=== PATIENT | female | born 1960 | race African-American/Black ===

== ENCOUNTER → 2017-03-29 | Outpatient (CLI) | payer BC ==
[~2017-03-29] MED LIST: ADVIN25050 INH; ALBUAER2 INH; ASTNS NAE; BYS10 PO; HLD5 PO; SNG10 PO; TIOTCAP INH
--- NOTE | 2017-03-29 13:29 | MAMMOGRAPHY REPORT ---
BILATERAL DIGITAL DIAGNOSTIC MAMMOGRAM TOMOSYNTHESIS WITH CAD AND TARGETED BILATERAL ULTRASOUND: 2017 CLINICAL HISTORY: 56-year-old woman presents after she felt lumps in each breast, only one week ago. She was unable to palpate or point out the exact areas of the lumps today. No skin erythema or nipp le discharge. TECHNIQUE: Breast tomosynthesis in addition to standard 2D mammography was performed. Current study was also evaluated with a Computer Aided Detection (CAD) system. COMPARISON: Comparison is made to exams dated: 10/14/2011 ultrasound, 10/14/2011 mammogram, 04/21/2005 m ammogram, and 10/09/2004 mammogram - [facility]. BREAST COMPOSITION: The tissue of both breasts is almost entirely fatty. FINDINGS: A triangle palpable markers were placed on each breast in the approximate 9:00 middle one t hird of the right breast and approximate 8:00 middle one third of the left breast. There are stable subcentimeter circumscribed masses in the left upper outer quadrant, most compatible with benign intr amammary lymph nodes. A few benign-appearing calcifications in the anterior right breast. No new jeffery spicious mass, architectural distortion or cluster of microcalcifications is seen. Targeted ultrasound was performed in both breasts in the general areas of lumps described by the alexander ent, although she was unable to pinpoint a discrete lump in either breast at this appointment. In th e 8:00 left breast approximately 8 cm from the nipple, sonographically normal tissue is identified. In the approximate 9:00 right breast, 6 cm from the nipple, sonographically normal tissue is identifi ed. No suspicious solid mass identified in either breast on targeted ultrasound. IMPRESSION: ACR BI-RADS CATEGORY 2: BENIGN, TARGETED ULTRASOUND ACR BI-RADS CATEGORY 2: BENIGN Stable bilateral mammograms. There is no mammographic or targeted sonographic evidence of malignancy in the breasts. Continued clinical follow-up is recommended for the reported bilateral lumps, as bi opsy of a clinically suspicious mass should not be precluded by negative imaging. Otherwise recommen d bilateral screening mammography in one year. These results and recommendations were discussed with the patient at the time of the exam. Approximately 10% of breast cancers are not detected with mammography. A negative mammographic report should not delay biopsy if a clinically suggestive mass is present. Shirin Cummins M.D. ay/:03/29/2017 10:19:48 Bridge Operator: Humaira WITT)(M), [facility] letter sent: Normal /2 BI-RADS Code: ACR BI-RADS Category 2: Benign Ultrasound BI-RADS: ACR BI-RADS Category 2: Benign
== END | disposition home or self-care (01) ==
LOC: C.MAMM 08:35
PROVIDERS: ATTEND Family Medicine
DX: N63.10 Unspecified lump in the right breast, unspecified quadrant (principal); N63.20 Unspecified lump in the left breast, unspecified quadrant

== ENCOUNTER 2022-02-08 20:08 | Inpatient (IN) ==
[2022-02-08 21:52] LABS: Acetaminophen < 3 ug/ml (10-30); Alanine Aminotransferase 20 U/L (7-52); Albumin Globulin Ratio 1.1 (0.9-2); Albumin Level 3.9 gm/dl (3.4-5.0); Alkaline Phosphatase 125 U/L (34-104); Anion Gap 20 (3-11); Aspartate Aminotransferase 23 U/L (13-39); BUN Creatinine Ratio 14.5 (10-20); Bilirubin,Total 0.9 mg/dl (0.2-1.0); Blood Urea Nitrogen 23 mg/dl (6-23); Calcium 8.9 mg/dl (8.5-10.1); Carbon Dioxide 29 mmol/L (21-32); Chloride 94 mmol/L (98-107); Est GFR (African American) 39.6 ml/min; Est GFR (Non-African American) 34.2 ml/min; Globulin 3.4 gm/dl (2.5-4.0); Glucose 87 mg/dl (70-99(Fasting)); Potassium 2.6 mmol/L (3.5-5.1); Salicylate < 3.0 mg/dl (3.0-30); Sodium 143 mmol/L (136-145); Total Protein 7.3 gm/dl (6.0-8.3)
[2022-02-08 21:55] LABS: Basophils # (auto) 0.06 K/uL (0-0.2); Basophils % (auto) 0.7 %; Eosinophils # (auto) 0.04 K/uL (0-0.50); Eosinophils % (auto) 0.5 %; Hematocrit (blood only) 42.9 % (34.1-44.9); Hemoglobin 14.2 g/dl (12.0-16.0); Immature Granulocytes # (auto) 0.02 K/uL (0.00-0.02); Immature Granulocytes % (auto) 0.2 %; Lymphocytes # (auto) 1.57 K/uL (1.2-3.4); Lymphocytes % (auto) 18.6 %; Mean Corpuscular Hemoglobin 25.5 pg (25.0-34.0); Mean Corpuscular Hgb Conc 33.1 g/dL (32.0-36.0); Mean Corpuscular Volume 77.2 fL (80.0-100.0); Mean Platelet Volume 11.5 fL (9.4-12.3); Monocytes # (auto) 0.83 K/uL (0.24-0.82); Monocytes % (auto) 9.8 %; Neutrophils # (auto) 5.91 K/uL (1.4-6.5); Neutrophils % (auto) 70.2 %; Platelet Count 170 K/uL (130-400); RDW Coefficient of Variation 14.8 % (11.5-14.5); RDW Standard Deviation 40.7 fL (36.4-46.3); Red Blood Count 5.56 M/uL (3.93-5.22); White Blood Count 8.43 K/ul (4.8-10.8)
[2022-02-08] MEDS ORDERED: POTASSIUM CHLORIDE CRTAB 20 MEQ TABCR PO STA (22:10)
[2022-02-08] MEDS ORDERED: SODIUM CHLORIDE 0.9% 1000ML 1,000 ML IV ONE (22:10)
--- NOTE | 2022-02-08 22:14 | Emergency Department Note ---
Impression & Plan Schizophrenia, ABHISHEK (acute kidney injury), Hypokalemia, Noncompliance with medications ED Provider Note NAME: KYREE CASEY AGE: 61 SEX: F ARRIVES VIA: Ambulance INFORMANT: Patient ED PROVIDER(S): Rashaun John MD CHIEF COMPLAINT: 302 warrant, inability for self-care. PLAN: Disposition: Admit MEDICAL DECISION MAKING: The patient is a 61-year-old woman with a past medical history of schizophrenia who presents to the emergency department with a 302 warrant by police after concern was raised by friends that the patient was on acting normally and was not responding to her attempts to contact her. The patient's home was entered today by police after a broken window was noticed in her home. Her home was noticed to be in disarray and included her toilet which have been nonfunctioning for 2 weeks filled with stool. The patient reported that she is not eating anything for the past 9 days. She reports that "nothing is wrong with her". T hought processes difficult to follow and is incoherent at times. She denies being on any medications at all. She denies hearing any voices or seeing things. She denies any recent fevers, chills, cough or congestion. On arrival the patient is no acute distress, afebrile with heart in the 100s and blood pressure 150s/100s and vital signs otherwise stable. She appears clinically dry. She does exhibit pressured speech and mild flight of ideas. Thoughts are disorganized. WBC, H/H and platelets within normal limits. Chemistry with potassium of 2.6 with repletion initiated. Creatinine 1.5 consistent with patient's clinically dry appearance without recent values for comparison. LFTs unremarkable. TSH within normal limits. COVID-19 RNA, NAM test was negative. Given the patient's metabolic abnormalities including low potassium and acute renal insufficiency she will require medical admission for medical optimization prior to clearance for psychiatric placement. Case was discussed [place] Gomez, [facility] [place], who will evaluate the patient for admission. Urine pending. Triage Nursing notes reviewed and agree them. Prior medical records reviewed Vital Signs: reviewed Differential diagnosis: Mood disorder, infection, hypoglycemia, electrolyte abnormalities, cardiac sources, intracerebral event, toxicologic, trauma, neurologic, as well as other pathologies. ER treatment provided: See below. Laboratory studies: See below Imaging studies: See below Consultation(s): Dr. Gomez [facility] [place]. HPI: The patient is a 61-year-old woman with a past medical history of schizophrenia who presents to the emergency department with a 302 warrant by police after concern was raised by friends that the patient was on acting normally and was not responding to her attempts to contact her. The patient's home was entered today by police after a broken window was noticed in her home. Her home was noticed to be in disarray and included her toilet which have been nonfunctioning for 2 weeks filled with stool. The patient reported that she is not eating anything for the past 9 days. She reports that "nothing is wrong with her". Thought processes difficult to follow and is incoherent at times. She denies being on any medications at all. She denies hearing any voices or seeing things. She denies any recent fevers, chills, cough or congestion. ROS: See above HPI for pertinent positives & negatives. A total of 10 systems reviewed and were otherwise negative. VITALS:See Below PHYSICAL EXAMINATION: GENERAL: Awake, alert, in no distress HENT: Normocephalic, atraumatic. Oropharynx unremarkable. EYES: Normal conjunctiva. Sclera non-icteric. NECK: Supple. No nuchal rigidity. FROM. No JVD. RESPIRATORY: Clear to auscultation. CARDIAC: Regular rate, normal rhythm. Extremities warm and well perfused. Pulses equal. ABDOMEN: Soft, non-distended. No tenderness to palpation. No rebound or guarding. No masses. RECTAL: Deferred. MUSCULOSKELETAL: Chest examination reveals no tenderness. The back is symmetrical on inspection without obvious abnormality. There is no CVA tenderness to palpation. No joint edema. LOWER EXTREMITIES: Calves are equal size bilaterally and non-tender. No edema. No discoloration. NEURO: Normal sensorium. No sensory or motor deficits noted. SKIN: No rash or jaundice noted. PSYCH: Labile affect. Disorganized thoughts, pressured speech, flight of ideas. Poor insight. 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 Beliefs That Will Affect Care: None Current Living Situation: Alone Other Information That Helps Us Care for You: No Feels Safe at Home: Yes Safety Concerns: Feels Safe At This Time Assistive Devices: None Allergies Allergies Allergy/AdvReac Type Severity Reaction Status Date / Time latex Allergy Unknown Unknown Verified 02/08/22 22:43 Penicillins Allergy Unknown PT CAN NOT Verified 02/08/22 22:43 REMEMBER (TOLERATES CEFAZOLIN) oxycodone AdvReac Intermediate NAUSEA Verified 02/08/22 22:43 Home Meds Home Medications Medication Instructions Recorded Confirmed No Known Home Medications 02/08/22 02/08/22 Results & Data (ED) Vital Signs Vital Signs - 24 hr 02/08/22 20:28 02/08/22 22:07 Temperature 37.4 C Temperature Source Oral Pulse Rate 104 H Pulse Rate [Finger] 102 H Pulse Rhythm Regular Pulse Rhythm [Finger] Regular Pulse Strength Normal Pulse Strength [Finger] Normal Respiratory Rate 20 20 Respiratory Effort / Characteristics Non-Labored Spontaneous Non-Labored Spontaneous Respiratory Depth Normal Normal Respiratory Pattern Regular Blood Pressure 178/101 H Blood Pressure [Right Arm] 155/100 H Blood Pressure Mean 126 Blood Pressure Mean [Right Arm] 118 Blood Pressure Position [Right Arm] Sitting Pulse Oximetry 98 97 Oxygen Delivery Method Room Air Room Air Sepsis Recent Fever Within 48 Hours No Sepsis New/Unexplained Change in Mental Status N/A Sepsis Action Taken by Nursing No Action Required Laboratory Data Attestation: I reviewed the patient's lab results. Result diagrams: 02/08/22 21:15 02/08/22 21:15 Lab Results 02/08/22 02/08/22 02/08/22 Range/Units 20:55 21:15 21:15 WBC 8.43 (4.8-10.8) K/ul RBC 5.56 H (3.93-5.22) M/uL Hgb 14.2 (12.0-16.0) g/dl Hct 42.9 (34.1-44.9) % MCV 77.2 L (80.0-100.0) fL MCH 25.5 (25.0-34.0) pg MCHC 33.1 (32.0-36.0) g/dL RDW Std Deviation 40.7 (36.4-46.3) fL RDW Coeff of Cory 14.8 H (11.5-14.5) % Plt Count 170 (130-400) K/uL MPV 11.5 (9.4-12.3) fL Immature Gran % (Auto) 0.2 % Neut % (Auto) 70.2 % Lymph % (Auto) 18.6 % Benton % (Auto) 9.8 % Eos % (Auto) 0.5 % Baso % (Auto) 0.7 % Neut # (Auto) 5.91 (1.4-6.5) K/uL Lymph # (Auto) 1.57 (1.2-3.4) K/uL Benton # (Auto) 0.83 H (0.24-0.82) K/uL Eos # (Auto) 0.04 (0-0.50) K/uL Baso # (Auto) 0.06 (0-0.2) K/uL Immature Gran # (Auto) 0.02 (0.00-0.02) K/uL Sodium 143 (136-145) mmol/L Potassium 2.6 L (3.5-5.1) mmol/L Chloride 94 L (98-107) mmol/L Carbon Dioxide 29 (21-32) mmol/L Anion Gap 20 H (3-11) BUN 23 (6-23) mg/dl Creatinine 1.59 H (0.6-1.2) mg/dl Est Cr Clr Drug Dosing Not Reportable Est GFR ( Amer) 39.6 ml/min Est GFR (Non-Af Amer) 34.2 ml/min BUN/Creatinine Ratio 14.5 (10-20) Glucose 87 (70-99(Fasting)) mg/dl Calcium 8.9 (8.5-10.1) mg/dl Phosphorus (2.5-4.9) mg/dl Magnesium (1.7-2.4) mg/dl Total Bilirubin 0.9 (0.2-1.0) mg/dl AST 23 (13-39) U/L ALT 20 (7-52) U/L Alkaline Phosphatase 125 H (34-104) U/L Total Protein 7.3 (6.0-8.3) gm/dl Albumin 3.9 (3.4-5.0) gm/dl Globulin 3.4 (2.5-4.0) gm/dl Albumin/Globulin Ratio 1.1 (0.9-2) TSH (0.300-4.500) uIu/ml Salicylates (3.0-30) mg/dl Acetaminophen (10-30) ug/ml Ethyl Alcohol mg/dL (<10.0) mg/dl SARS-CoV-2, RNA, NAAT NEGATIVE (NEGATIVE) 02/08/22 02/08/22 02/08/22 Range/Units 21:15 21:15 21:15 WBC (4.8-10.8) K/ul RBC (3.93-5.22) M/uL Hgb (12.0-16.0) g/dl Hct (34.1-44.9) % MCV (80.0-100.0) fL MCH (25.0-34.0) pg MCHC (32.0-36.0) g/dL RDW Std Deviation (36.4-46.3) fL RDW Coeff of Cory (11.5-14.5) % Plt Count (130-400) K/uL MPV (9.4-12.3) fL Immature Gran % (Auto) % Neut % (Auto) % Lymph % (Auto) % Benton % (Auto) % Eos % (Auto) % Baso % (Auto) % Neut # (Auto) (1.4-6.5) K/uL Lymph # (Auto) (1.2-3.4) K/uL Benton # (Auto) (0.24-0.82) K/uL Eos # (Auto) (0-0.50) K/uL Baso # (Auto) (0-0.2) K/uL Immature Gran # (Auto) (0.00-0.02) K/uL Sodium (136-145) mmol/L Potassium (3.5-5.1) mmol/L Chloride (98-107) mmol/L Carbon Dioxide (21-32) mmol/L Anion Gap (3-11) BUN (6-23) mg/dl Creatinine (0.6-1.2) mg/dl Est Cr Clr Drug Dosing Est GFR ( Amer) ml/min Est GFR (Non-Af Amer) ml/min BUN/Creatinine Ratio (10-20) Glucose (70-99(Fasting)) mg/dl Calcium (8.5-10.1) mg/dl Phosphorus (2.5-4.9) mg/dl Magnesium (1.7-2.4) mg/dl Total Bilirubin (0.2-1.0) mg/dl AST (13-39) U/L ALT (7-52) U/L Alkaline Phosphatase (34-104) U/L Total Protein (6.0-8.3) gm/dl Albumin (3.4-5.0) gm/dl Globulin (2.5-4.0) gm/dl Albumin/Globulin Ratio (0.9-2) TSH 0.419 (0.300-4.500) uIu/ml Salicylates < 3.0 L (3.0-30) mg/dl Acetaminophen < 3 L (10-30) ug/ml Ethyl Alcohol mg/dL < 10.0 (<10.0) mg/dl SARS-CoV-2, RNA, NAAT (NEGATIVE) 02/08/22 Range/Units 21:15 WBC (4.8-10.8) K/ul RBC (3.93-5.22) M/uL Hgb (12.0-16.0) g/dl Hct (34.1-44.9) % MCV (80.0-100.0) fL MCH (25.0-34.0) pg MCHC (32.0-36.0) g/dL RDW Std Deviation (36.4-46.3) fL RDW Coeff of Cory (11.5-14.5) % Plt Count (130-400) K/uL MPV (9.4-12.3) fL Immature Gran % (Auto) % Neut % (Auto) % Lymph % (Auto) % Benton % (Auto) % Eos % (Auto) % Baso % (Auto) % Neut # (Auto) (1.4-6.5) K/uL Lymph # (Auto) (1.2-3.4) K/uL Benton # (Auto) (0.24-0.82) K/uL Eos # (Auto) (0-0.50) K/uL Baso # (Auto) (0-0.2) K/uL Immature Gran # (Auto) (0.00-0.02) K/uL Sodium (136-145) mmol/L Potassium (3.5-5.1) mmol/L Chloride (98-107) mmol/L Carbon Dioxide (21-32) mmol/L Anion Gap (3-11) BUN (6-23) mg/dl Creatinine (0.6-1.2) mg/dl Est Cr Clr Drug Dosing Est GFR ( Amer) ml/min Est GFR (Non-Af Amer) ml/min BUN/Creatinine Ratio (10-20) Glucose (70-99(Fasting)) mg/dl Calcium (8.5-10.1) mg/dl Phosphorus 2.8 (2.5-4.9) mg/dl Magnesium 2.0 (1.7-2.4) mg/dl Total Bilirubin (0.2-1.0) mg/dl AST (13-39) U/L ALT (7-52) U/L Alkaline Phosphatase (34-104) U/L Total Protein (6.0-8.3) gm/dl Albumin (3.4-5.0) gm/dl Globulin (2.5-4.0) gm/dl Albumin/Globulin Ratio (0.9-2) TSH (0.300-4.500) uIu/ml Salicylates (3.0-30) mg/dl Acetaminophen (10-30) ug/ml Ethyl Alcohol mg/dL (<10.0) mg/dl SARS-CoV-2, RNA, NAAT (NEGATIVE) Administered Medications Discontinued Medications Sodium Chloride (Nss 1000ml) 1,000 mls @ 999 mls/hr IV .Q1H1M ONE Stop: 02/08/22 23:10 Last Infusion: 02/08/22 23:57 Dose: 0 mls/hr Documented By: Admin: 02/08/22 22:41 Dose: 999 mls/hr Documented By: JOE Potassium Chloride (K David / Wtr) 10 meq in 100 mls @ 100 mls/hr IV Q1H PAM; Protocol Stop: 02/09/22 00:14 Last Infusion: 02/09/22 01:18 Dose: 0 mls/hr Documented By: Admin: 02/08/22 23:56 Dose: 100 mls/hr Documented By: Infusion: 02/08/22 23:41 Dose: 100 mls/hr Documented By: Admin: 02/08/22 22:41 Dose: 100 mls/hr Documented By: JOE Potassium Chloride (Potassium Chloride Crtab 20 Meq Tabcr) 20 meq PO NOW STA Stop: 02/08/22 22:11 Last Admin: 02/08/22 22:40 Dose: 20 meq Documented By: JOE Discharge Plan Visit Data Chief Complaint: Altered Mental Status Stated Complaint: mental health ED Provider: Rashaun John Discharge Problem: Schizophrenia, ABHISHEK (acute kidney injury), Hypokalemia, Noncompliance with medications Patient Disposition: Admitted As Inpatient Discharge Instructions Interventions: ED Discharge Assessment Last Done: 02/09/22 00:53
--- NOTE | 2022-02-08 22:25 | History & Physical Report ---
Date of Service February 08, 2022 Assessment & Plan (1) Hypokalemia: Plan: Sun is a 61-year-old female with a past medical history of schizoaffective disorder last hospitalization in the setting of medication noncompliance several years ago who was brought in by police on a 302 with c additional concerns from office of aging for unsafe home environment and he was found to have had no meals in over a week, and with concern for reported disorganized thought proce ss. Hypokalemia Potassium 2.6 on admission Magnesium pending Suspect in the setting of poor p.o. intake, patient endorses not eating in at least 9 days Per report house was disorganized with foul smell, furniture had been moved and patient with disorganized reports of how it got 40 M EQ x1, followed by 20 M EQ p.o. 3 times daily x3 doses Trend BMP and magnesium daily (2) Schizoaffective disorder: Plan: With history of medication noncompliance Patient denies history of this, reports she has not taken any medications in over a year Thought process during exam is tangential, when asked about AH/VH/SI/HI pt reports " I am not getting into that with you, you should call Dr. Tejinder Mcguire and Jose Alfredo or the higher ups. " Patient had not eaten in several days, she reports that because she has to digest her food and could not do this. Denies any abdominal pain, discomfort and at time of bedside visit reports she thinks she could eat and is happy to try. No diarrhea/constipation Patient is currently on 302, behavioral health liaison consulted Psychiatry consulted for recommendations on resuming/reinitiating antipsychotic regimen Patient with disorganized thought process, easily distracted, with some disorganized thinking at time of bedside visit consistent with schizophrenic psychosis PCP record from [facility] reviewed, no recent note available Patient reports that provider team to talk to a Dr. Tejinder Mcguire and Rupinder who practices out of [place], unable to find contact information for this provider. There is a Dr. Tejinder Mcguire in the school of psychiatry from [facility] in [place]. Can try reaching out to their office during day hours at [phone] (3) ABHISHEK (acute kidney injury): Plan: Creatinine previously normal Creatinine acutely elevated to 1.59 on admission, suspect 2/2 prerenal depl etion in the setting of poor p.o. intake for over a week Diet ordered, patient given 1 L of fluids in the ER, continue p.o. Trend BMP daily Plan DVT prophylaxis: SCDs, low risk Diet: Safe tray CODE STATUS: Full code, patient admitted on 302 Disposition: Medical telemetry until hypokalemia is normalized, then may transfer to [facility] History of Present Illness Primary Care Provider: Femi Cerna MD Sun is a 61-year-old female with a past medical history of schizoaffective disorder versus bipolar with psychosis and recurrent admissions for psychosis and medication noncompliance who was found at home in the dark with furniture saying people were moving her furniture but she did not know who, appearing acutely psychotic, and who had not eaten in several days. She is brought in on 302 status. Psych liaison was consulted by ER provider and patient was recommended for admission and behavioral health inpatient stay; however patient was acutely hypokalemic with a admitting potassium of 2.6, ABHISHEK to 1.59 and was recommended for medical optimization prior to transfer [facility]. Patient is seen in the emergency department. At time bedside visit she is cooperative, tangential. She reports she does not know why she is in the hosp ital, just that the police told her she had to come in. Discussed that they were concerned as her house was disorganized, she had not eaten in many days, and her potassium was low. She reports that she was not supposed to eat because she has to be able to digest food and right now she cannot, does not elaborate further. She reports at time of bedside visit she is not having any abdominal pain, nausea, discomfort and feels like she can eat and would be appreciative of eating a turkey sandwich. She reports that she sometimes gets help to grocery shop. When asked if she has any AH/VH/SI/HI patient laughs continuously" I am not getting into that with you, you should call Dr. Tejinder Mcguire and Jose Alfredo or the higher ups. "Discussed that her potassium levels were very low and this can affect heart, and what her thought symptoms were. She reports that she feels fine and is not concerned about this, but is agreeable to having potassium replaced. Oriented to place, does not answer orientation questions of year/date. Is oriented to name. Denies any other medical problems, reports she does not need any medications and has not taken medications in over a year. Asked if patient recalls taking haloperidol, patient reports "higher ups told me I did not need to take that, you can take it up with them "as to who patient has that helps her at home, noting it must be difficult after her has passed. Patient reports that there are people like help drive her sometimes, but does not elaborate further Medical history, surgical history, allergies reviewed at bedside and patient de nies these, although unreliable historian. Denies she has any medical history or medical problems or hospitalizations. Social History: Denies tobacco/ETOh Code Status: Full, 302 on admission Allergies Allergy/AdvReac Type Severity Reaction Status Date / Time latex Allergy Unknown Unknown Verified 02/08/22 22:43 Penicillins Allergy Unknown PT CAN NOT Verified 02/08/22 22:43 REMEMBER (TOLERATES CEFAZOLIN) oxycodone AdvReac Intermediate NAUSEA Verified 02/08/22 22:43 Home Medications Medication Instructions Recorded Confirmed Type No Known Home Medications 02/08/22 02/08/22 History Past Med/Surg History Social History Smoking Status: Never smoker Preferred Language: Lithuanian Feels Safe at Home: Yes Review of Systems Review of Systems: All systems reviewed & are unremarkable except as noted in HPI & below Physical Exam Physical Exam: General: Oriented to name only. Thought process tangential, occasionally disorganized. Follows one-step commands, easily distracted. Speech is not pressured. No psychomotor agitation or depression. Speech prosody is normal. HEENT: Atraumatic, normocephalic. Pupils equal and reactive to light, vision/hearing grossly intact Pulm: Symmetrical chest rise. No increase in work of breathing. No respiratory distress. Cardiac: RRR. R Radial pulses intact Abdominal: Nontender, nondistended, soft. BS present. Extremities: Warm, dry Results & Data Results & Data ([place]) Vital Signs (Past 12 Hours) Vital Signs Temp Pulse Pulse Resp BP BP Pulse Ox 02/08/22 22:07 102 H 20 155/100 H 97 02/08/22 20:28 37.4 C 104 H 20 178/101 H 98 O2 Del Method 02/08/22 22:07 Room Air 02/08/22 20:28 Room Air PG Care Time/CCT Total # of Minutes Spent Total Time Spent with Patient: Total time spent is greater than 50% in coordination of care (as documented) at patient's floor/unit and/or counseling patient: Coding Level of Care Code 67553 Initial Inpt Care Lvl 2 Diagnoses Hypokalemia E87.6 Schizoaffective disorder F25.9 ABHISHEK (acute kidney injury) N17.9
[2022-02-08] MEDS: POTASSIUM CHLORIDE / WTR 10 MEQ/100 ML PLCT IV SCH ×2 (22:41→23:56)
[2022-02-08 22:58] LABS: Phosphorus 2.8 mg/dl (2.5-4.9)
[2022-02-09] MEDS ORDERED: ACETAMINOPHEN 325 MG TAB PO PRN (00:52)
[2022-02-09] MEDS ORDERED: HALOPERIDOL LACTATE 5 MG/ML 1 ML VIAL IM PRN (00:52)
[2022-02-09 01:54] LABS: Appearance Urine Cloudy (Clear); Blood Urine Negative (Negative); Color Urine Dark Yellow; Epithelial Cell Urine Auto >30 /lpf (0-5); Glucose Urine UA Negative (Negative); Ketones Urine 2+ (Negative); Leukocyte Esterase Urine 1+ (Negative); Nitrite Urine Negative (Negative); Protein Urine 1+ (Negative); Specific Gravity Urine 1.017 (1.000-1.030); Urobilinogen Urine Negative (Negative); pH Urine 6.5 (4.5-7.5)
[2022-02-09 02:00] LABS: Bilirubin Urine 2+ (Negative)
[2022-02-09 02:33] LABS: Amphetamines+Metham, Urine Neg (Neg); Barbiturates, Urine Neg (Neg); Benzodiazepine, Urine Neg (Neg); Cocaine, Urine Neg (Neg); MDMA (Ecstacy), Urine Neg (Neg); Methadone, Urine Neg (Neg); Opiate, Urine Neg (Neg); Phencyclidine, Urine Neg (Neg)
[2022-02-09 02:43] LABS: RBC Urine Automated 0-4 /hpf (0-4)
[2022-02-09 02:50] LABS: Bacteria Urine Automated 1+ (Negative)
[2022-02-09 07:58] LABS: Basophils # (auto) 0.05 K/uL (0-0.2); Basophils % (auto) 0.6 %; Eosinophils # (auto) 0.07 K/uL (0-0.50); Eosinophils % (auto) 0.8 %; Hematocrit (blood only) 43.8 % (34.1-44.9); Hemoglobin 14.3 g/dl (12.0-16.0); Immature Granulocytes # (auto) 0.03 K/uL (0.00-0.02); Immature Granulocytes % (auto) 0.3 %; Lymphocytes # (auto) 1.71 K/uL (1.2-3.4); Lymphocytes % (auto) 19.5 %; Mean Corpuscular Hemoglobin 25.2 pg (25.0-34.0); Mean Corpuscular Hgb Conc 32.6 g/dL (32.0-36.0); Mean Corpuscular Volume 77.1 fL (80.0-100.0); Mean Platelet Volume 11.2 fL (9.4-12.3); Monocytes # (auto) 0.82 K/uL (0.24-0.82); Monocytes % (auto) 9.3 %; Neutrophils # (auto) 6.11 K/uL (1.4-6.5); Neutrophils % (auto) 69.5 %; Platelet Count 176 K/uL (130-400); RDW Coefficient of Variation 14.9 % (11.5-14.5); RDW Standard Deviation 40.4 fL (36.4-46.3); Red Blood Count 5.68 M/uL (3.93-5.22); White Blood Count 8.79 K/ul (4.8-10.8)
[2022-02-09 08:15] LABS: BUN Creatinine Ratio 14.4 (10-20); Calcium 8.9 mg/dl (8.5-10.1); Creatinine Clr Calc Pharmacy 52.9 ml/min; Est GFR (African American) 46.6 ml/min; Est GFR (Non-African American) 40.2 ml/min; Potassium 2.9 mmol/L (3.5-5.1)
[2022-02-09] MEDS: POTASSIUM CHLORIDE CRTAB 20 MEQ TABCR PO SCH ×3 (08:53→20:29)
[2022-02-09] MEDS ORDERED: POTASSIUM CHLORIDE CRTAB 20 MEQ TABCR PO STA (09:04)
[2022-02-09] MEDS ORDERED: LACTATED RINGER'S 1,000 ML IV SCH (09:15)
[2022-02-09] MEDS ORDERED: BENZTROPINE MESYLATE 0.5 MG TAB PO PRN (12:29)
[2022-02-09] MEDS ORDERED: haloperidoL 5 MG TAB PO PRN (12:29)
--- NOTE | 2022-02-09 13:38 | Psychiatric Consultation ---
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 No current services with severe decline in ADLs and iADLs within short time. (1) Hypokalemia: (2) ABHISHEK (acute kidney injury): (3) Schizophrenia: Plan cannot leave AMA as on 302 warrant pending medical clearance, would suggest head imaging (preferrably MRI) to r/o acute neurologic event as self care issues seems out of proportion to her level of psychosis on exam. She seems more confused/poor memory than disorganized or severe negative symptoms as minimal delay in response (ie no severe catatonia). she is not currently agreeing to resume psych meds, will offer Haldol [address] Medellin updated as likely to require sedation for MRI. Risk Factors Assessment Do You Have Access To A Gun?: No Psych History Identifying Data 61 yo female with a history of schizophrenia dx, lives alone in [facility], is boarding in ED awaiting bed on medical floor for monitoring/rx of hypokalemia and additional medical clearance. Consult is for inability to care for self and 302 warrant (active). Chief Complaint "I don't know why I'm here". History of Present Illness Per ED psych CM: Pt to ED on a Box A warrant petitioned by Yanely Boss: The police have been called by the [facility] post office for backed up mail and several welfare checks. Tonight upon entering at the request of aging due to a foul smell, the house was entirely unkempt and filthy, Sun had lost a substantial amount of weight, and did not recognize me or her [id number]. There is only a bit of food, and the lunchmeat in her refrigerator is from November. It is clear Sun cannot take care of herself, has not been eating, has not washed her hair since October 21, and there is trash. There is significant documentation that the patient is not attending to usual iADLs that require higher executive functioning like arranging for snow removal or paying bills. History is that she was last seen by Dr. Joyce's office this summer with 2 month supply of medication is consistent with Surescripts so likely off Haldol for 3 months. Today she seems confused as to her actual providers (listing names of older providers from [facility]), denies that she was ever hospital/3S. Chart review shows 2 prior inpatient stays on 302 in 2000 and then not again until 2014, both times for paranoia (cameras in workplace), ideas of reference. She has been cooperative so far with medical w/u though feels it's unnecessary. She isn't making any bizarre statements to me or the liaison. She pretty much shuts down any discussion about her house stating that [facility] should be called to clean it up. Past Psychiatric History Previous Psych History: [facility] Outpatient Services: none Previous Psych Admissions: 2000 and 2014 [facility] for delusions Do You Have Access To A Gun?: No History of Previous Suicide Attempt: No Past Medication Trials: Risperdal, Geodon, Haldol 10 mg daily, Cogentin, Sertraline 100 mg. 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) Marital Status: Number Of Children: 0 Beliefs That Will Affect Care: None Patient History Medical History Noncompliance with medications Schizophrenia Family History Other Family history non-contributory Social History Smoking Status: Never smoker Second Hand Exposure: No; Do You Dip or Chew Tobacco: No; Tobacco Cessation Education Requested by Patient: No Hx Alcohol Use: No Hx Substance Use: No Preferred Language: Georgian Communication Ability: Impaired Sports Specialist Required: No Beliefs That Will Affect Care: None Current Living Situation: Alone Other Information That Helps Us Care for You: No Feels Safe at Home: Yes Safety Concerns: Feels Safe At This Time Assistive Devices: None Physical Exam Psychiatric: Orientation: alert, oriented to person and oriented to place Apperance: appropriately groomed Eye Contact: + fair eye contact Motor Behavior: no abnormal motor movements Speech: normal rate/rhythm/volume of speech Affect: + blunted affect Mood: no depressed mood ("I'm fine.") Thought Process: + concrete thought process Thought Content: reality based without delusions Suicidal Thoughts: denies suicidal thoughts Homicidal Thoughts: denies homicidal thoughts Hallucinations: no auditory hallucinations and no visual hallucinations Cognition: attention grossly intact and language grossly intact Estimated Intelligence: consistent with education level Insight: + limited insight Judgement: + limited judgement Vital Signs (Past 24 Hours): Last Vital Signs Temp 37.4 C 02/08/22 20:28 Pulse 94 H 02/09/22 10:03 Resp 18 02/09/22 10:03 BP 169/113 H 02/09/22 10:03 Pulse Ox 96 02/09/22 10:03 O2 Del Method 02/09/22 10:03 Results & Data (PSY) Laboratory Results 02/09/22 02/09/22 02/09/22 Range/Units 07:19 07:19 01:27 WBC 8.79 (4.8-10.8) K/ul RBC 5.68 H (3.93-5.22) M/uL Hgb 14.3 (12.0-16.0) g/dl Hct 43.8 (34.1-44.9) % MCV 77.1 L (80.0-100.0) fL MCH 25.2 (25.0-34.0) pg MCHC 32.6 (32.0-36.0) g/dL RDW Std Deviation 40.4 (36.4-46.3) fL RDW Coeff of Cory 14.9 H (11.5-14.5) % Plt Count 176 (130-400) K/uL MPV 11.2 (9.4-12.3) fL Immature Gran % (Auto) 0.3 % Neut % (Auto) 69.5 % Lymph % (Auto) 19.5 % Whitley % (Auto) 9.3 % Eos % (Auto) 0.8 % Baso % (Auto) 0.6 % Neut # (Auto) 6.11 (1.4-6.5) K/uL Lymph # (Auto) 1.71 (1.2-3.4) K/uL Whitley # (Auto) 0.82 (0.24-0.82) K/uL Eos # (Auto) 0.07 (0-0.50) K/uL Baso # (Auto) 0.05 (0-0.2) K/uL Immature Gran # (Auto) 0.03 H (0.00-0.02) K/uL Sodium 142 (136-145) mmol/L Potassium 2.9 L (3.5-5.1) mmol/L Chloride 97 L (98-107) mmol/L Carbon Dioxide 35 H (21-32) mmol/L Anion Gap 10 (3-11) BUN 20 (6-23) mg/dl Creatinine 1.39 H (0.6-1.2) mg/dl Est Cr Clr Drug Dosing 52.9 Est GFR ( Amer) 46.6 ml/min Est GFR (Non-Af Amer) 40.2 ml/min BUN/Creatinine Ratio 14.4 (10-20) Glucose 132 H (70-99(Fasting)) mg/dl Calcium 8.9 (8.5-10.1) mg/dl Phosphorus (2.5-4.9) mg/dl Magnesium (1.7-2.4) mg/dl Total Bilirubin (0.2-1.0) mg/dl AST (13-39) U/L ALT (7-52) U/L Alkaline Phosphatase (34-104) U/L Total Protein (6.0-8.3) gm/dl Albumin (3.4-5.0) gm/dl Globulin (2.5-4.0) gm/dl Albumin/Globulin Ratio (0.9-2) TSH (0.300-4.500) uIu/ml Urine Color Urine Appearance (Clear) Urine pH (4.5-7.5) Ur Specific [place] (1.000-1.030) Urine Protein (Negative) Urine Glucose (UA) (Negative) Urine Ketones (Negative) Urine Blood (Negative) Urine Nitrite (Negative) Urine Bilirubin (Negative) Urine Urobilinogen (Negative) Ur Leukocyte Esterase (Negative) Urine WBC (Auto) (0-5) /hpf Urine RBC (Auto) (0-4) /hpf U Hyaline Cast (Auto) (0-5) /lpf U Epithel Cells (Auto) (0-5) /lpf Urine Bacteria (Auto) (Negative) Ur Renal Epithelial Cell WBC Casts (0) /lpf Salicylates (3.0-30) mg/dl Urine Opiates Screen Neg (Neg) Ur Methadone, Qual Neg (Neg) Acetaminophen (10-30) ug/ml Urine Barbiturates Neg (Neg) Ur Phencyclidine (PCP) Neg (Neg) U Amphetamin/Meth Scrn Neg (Neg) MDMA (Ecstasy) Screen Neg (Neg) U Benzodiazepines Scrn Neg (Neg) Ur Cocaine Metabolite Neg (Neg) U Marijuana (THC) Screen Neg (Neg) Ethyl Alcohol mg/dL (<10.0) mg/dl SARS-CoV-2, RNA, NAAT (NEGATIVE) 02/09/22 02/08/22 02/08/22 Range/Units 01:27 21:15 21:15 WBC (4.8-10.8) K/ul RBC (3.93-5.22) M/uL Hgb (12.0-16.0) g/dl Hct (34.1-44.9) % MCV (80.0-100.0) fL MCH (25.0-34.0) pg MCHC (32.0-36.0) g/dL RDW Std Deviation (36.4-46.3) fL RDW Coeff of Cory (11.5-14.5) % Plt Count (130-400) K/uL MPV (9.4-12.3) fL Immature Gran % (Auto) % Neut % (Auto) % Lymph % (Auto) % Whitley % (Auto) % Eos % (Auto) % Baso % (Auto) % Neut # (Auto) (1.4-6.5) K/uL Lymph # (Auto) (1.2-3.4) K/uL Whitley # (Auto) (0.24-0.82) K/uL Eos # (Auto) (0-0.50) K/uL Baso # (Auto) (0-0.2) K/uL Immature Gran # (Auto) (0.00-0.02) K/uL Sodium (136-145) mmol/L Potassium (3.5-5.1) mmol/L Chloride (98-107) mmol/L Carbon Dioxide (21-32) mmol/L Anion Gap (3-11) BUN (6-23) mg/dl Creatinine (0.6-1.2) mg/dl Est Cr Clr Drug Dosing Est GFR ( Amer) ml/min Est GFR (Non-Af Amer) ml/min BUN/Creatinine Ratio (10-20) Glucose (70-99(Fasting)) mg/dl Calcium (8.5-10.1) mg/dl Phosphorus 2.8 (2.5-4.9) mg/dl Magnesium 2.0 (1.7-2.4) mg/dl Total Bilirubin (0.2-1.0) mg/dl AST (13-39) U/L ALT (7-52) U/L Alkaline Phosphatase (34-104) U/L Total Protein (6.0-8.3) gm/dl Albumin (3.4-5.0) gm/dl Globulin (2.5-4.0) gm/dl Albumin/Globulin Ratio (0.9-2) TSH (0.300-4.500) uIu/ml Urine Color Dark Yellow Urine Appearance Cloudy A (Clear) Urine pH 6.5 (4.5-7.5) Ur Specific T[place] 1.017 (1.000-1.030) Urine Protein 1+ H (Negative) Urine Glucose (UA) Negative (Negative) Urine Ketones 2+ H (Negative) Urine Blood Negative (Negative) Urine Nitrite Negative (Negative) Urine Bilirubin 2+ H (Negative) Urine Urobilinogen Negative (Negative) Ur Leukocyte Esterase 1+ H (Negative) Urine WBC (Auto) 10-30 H (0-5) /hpf Urine RBC (Auto) 0-4 (0-4) /hpf U Hyaline Cast (Auto) 10-30 H (0-5) /lpf U Epithel Cells (Auto) >30 H (0-5) /lpf Urine Bacteria (Auto) 1+ H (Negative) Ur Renal Epithelial Cell Not Reportable WBC Casts 1-5 H (0) /lpf Salicylates (3.0-30) mg/dl Urine Opiates Screen (Neg) Ur Methadone, Qual (Neg) Acetaminophen (10-30) ug/ml Urine Barbiturates (Neg) Ur Phencyclidine (PCP) (Neg) U Amphetamin/Meth Scrn (Neg) MDMA (Ecstasy) Screen (Neg) U Benzodiazepines Scrn (Neg) Ur Cocaine Metabolite (Neg) U Marijuana (THC) Screen (Neg) Ethyl Alcohol mg/dL < 10.0 (<10.0) mg/dl SARS-CoV-2, RNA, NAAT (NEGATIVE) 02/08/22 02/08/22 02/08/22 Range/Units 21:15 21:15 21:15 WBC (4.8-10.8) K/ul RBC (3.93-5.22) M/uL Hgb (12.0-16.0) g/dl Hct (34.1-44.9) % MCV (80.0-100.0) fL MCH (25.0-34.0) pg MCHC (32.0-36.0) g/dL RDW Std Deviation (36.4-46.3) fL RDW Coeff of Cory (11.5-14.5) % Plt Count (130-400) K/uL MPV (9.4-12.3) fL Immature Gran % (Auto) % Neut % (Auto) % Lymph % (Auto) % Whitley % (Auto) % Eos % (Auto) % Baso % (Auto) % Neut # (Auto) (1.4-6.5) K/uL Lymph # (Auto) (1.2-3.4) K/uL Whitley # (Auto) (0.24-0.82) K/uL Eos # (Auto) (0-0.50) K/uL Baso # (Auto) (0-0.2) K/uL Immature Gran # (Auto) (0.00-0.02) K/uL Sodium 143 (136-145) mmol/L Potassium 2.6 L (3.5-5.1) mmol/L Chloride 94 L (98-107) mmol/L Carbon Dioxide 29 (21-32) mmol/L Anion Gap 20 H (3-11) BUN 23 (6-23) mg/dl Creatinine 1.59 H (0.6-1.2) mg/dl Est Cr Clr Drug Dosing Not Reportable Est GFR ( Amer) 39.6 ml/min Est GFR (Non-Af Amer) 34.2 ml/min BUN/Creatinine Ratio 14.5 (10-20) Glucose 87 (70-99(Fasting)) mg/dl Calcium 8.9 (8.5-10.1) mg/dl Phosphorus (2.5-4.9) mg/dl Magnesium (1.7-2.4) mg/dl Total Bilirubin 0.9 (0.2-1.0) mg/dl AST 23 (13-39) U/L ALT 20 (7-52) U/L Alkaline Phosphatase 125 H (34-104) U/L Total Protein 7.3 (6.0-8.3) gm/dl Albumin 3.9 (3.4-5.0) gm/dl Globulin 3.4 (2.5-4.0) gm/dl Albumin/Globulin Ratio 1.1 (0.9-2) TSH 0.419 (0.300-4.500) uIu/ml Urine Color Urine Appearance (Clear) Urine pH (4.5-7.5) Ur Specific T[place] (1.000-1.030) Urine Protein (Negative) Urine Glucose (UA) (Negative) Urine Ketones (Negative) Urine Blood (Negative) Urine Nitrite (Negative) Urine Bilirubin (Negative) Urine Urobilinogen (Negative) Ur Leukocyte Esterase (Negative) Urine WBC (Auto) (0-5) /hpf Urine RBC (Auto) (0-4) /hpf U Hyaline Cast (Auto) (0-5) /lpf U Epithel Cells (Auto) (0-5) /lpf Urine Bacteria (Auto) (Negative) Ur Renal Epithelial Cell WBC Casts (0) /lpf Salicylates < 3.0 L (3.0-30) mg/dl Urine Opiates Screen (Neg) Ur Methadone, Qual (Neg) Acetaminophen < 3 L (10-30) ug/ml Urine Barbiturates (Neg) Ur Phencyclidine (PCP) (Neg) U Amphetamin/Meth Scrn (Neg) MDMA (Ecstasy) Screen (Neg) U Benzodiazepines Scrn (Neg) Ur Cocaine Metabolite (Neg) U Marijuana (THC) Screen (Neg) Ethyl Alcohol mg/dL (<10.0) mg/dl SARS-CoV-2, RNA, NAAT (NEGATIVE) 02/08/22 02/08/22 Range/Units 21:15 20:55 WBC 8.43 (4.8-10.8) K/ul RBC 5.56 H (3.93-5.22) M/uL Hgb 14.2 (12.0-16.0) g/dl Hct 42.9 (34.1-44.9) % MCV 77.2 L (80.0-100.0) fL MCH 25.5 (25.0-34.0) pg MCHC 33.1 (32.0-36.0) g/dL RDW Std Deviation 40.7 (36.4-46.3) fL RDW Coeff of Cory 14.8 H (11.5-14.5) % Plt Count 170 (130-400) K/uL MPV 11.5 (9.4-12.3) fL Immature Gran % (Auto) 0.2 % Neut % (Auto) 70.2 % Lymph % (Auto) 18.6 % Whitley % (Auto) 9.8 % Eos % (Auto) 0.5 % Baso % (Auto) 0.7 % Neut # (Auto) 5.91 (1.4-6.5) K/uL Lymph # (Auto) 1.57 (1.2-3.4) K/uL Whitley # (Auto) 0.83 H (0.24-0.82) K/uL Eos # (Auto) 0.04 (0-0.50) K/uL Baso # (Auto) 0.06 (0-0.2) K/uL Immature Gran # (Auto) 0.02 (0.00-0.02) K/uL Sodium (136-145) mmol/L Potassium (3.5-5.1) mmol/L Chloride (98-107) mmol/L Carbon Dioxide (21-32) mmol/L Anion Gap (3-11) BUN (6-23) mg/dl Creatinine (0.6-1.2) mg/dl Est Cr Clr Drug Dosing Est GFR ( Amer) ml/min Est GFR (Non-Af Amer) ml/min BUN/Creatinine Ratio (10-20) Glucose (70-99(Fasting)) mg/dl Calcium (8.5-10.1) mg/dl Phosphorus (2.5-4.9) mg/dl Magnesium (1.7-2.4) mg/dl Total Bilirubin (0.2-1.0) mg/dl AST (13-39) U/L ALT (7-52) U/L Alkaline Phosphatase (34-104) U/L Total Protein (6.0-8.3) gm/dl Albumin (3.4-5.0) gm/dl Globulin (2.5-4.0) gm/dl Albumin/Globulin Ratio (0.9-2) TSH (0.300-4.500) uIu/ml Urine Color Urine Appearance (Clear) Urine pH (4.5-7.5) Ur Specific [place] (1.000-1.030) Urine Protein (Negative) Urine Glucose (UA) (Negative) Urine Ketones (Negative) Urine Blood (Negative) Urine Nitrite (Negative) Urine Bilirubin (Negative) Urine Urobilinogen (Negative) Ur Leukocyte Esterase (Negative) Urine WBC (Auto) (0-5) /hpf Urine RBC (Auto) (0-4) /hpf U Hyaline Cast (Auto) (0-5) /lpf U Epithel Cells (Auto) (0-5) /lpf Urine Bacteria (Auto) (Negative) Ur Renal Epithelial Cell WBC Casts (0) /lpf Salicylates (3.0-30) mg/dl Urine Opiates Screen (Neg) Ur Methadone, Qual (Neg) Acetaminophen (10-30) ug/ml Urine Barbiturates (Neg) Ur Phencyclidine (PCP) (Neg) U Amphetamin/Meth Scrn (Neg) MDMA (Ecstasy) Screen (Neg) U Benzodiazepines Scrn (Neg) Ur Cocaine Metabolite (Neg) U Marijuana (THC) Screen (Neg) Ethyl Alcohol mg/dL (<10.0) mg/dl SARS-CoV-2, RNA, NAAT NEGATIVE (NEGATIVE) Medications Administered Potassium Chloride (Potassium Chloride Crtab 20 Meq Tabcr) 20 meq PO TID PAM Stop: 02/09/22 21:01 Last Admin: 02/09/22 08:53 Dose: 20 meq Documented By: KENJI Coding Level of Care Code 91423 [facility] Intl Hosp Care Lvl 2 Diagnoses Hypokalemia E87.6 ABHISHEK (acute kidney injury) N17.9 Schizophrenia F20.9
[2022-02-09 16:36] LABS: BUN Creatinine Ratio 13.3 (10-20); Calcium 8.8 mg/dl (8.5-10.1); Creatinine Clr Calc Pharmacy 51.5 ml/min; Est GFR (African American) 45.1 ml/min; Est GFR (Non-African American) 38.9 ml/min; Potassium 2.9 mmol/L (3.5-5.1)
--- NOTE | 2022-02-09 20:06 | Hospitalist Progress Note ---
Date of Service February 09, 2022 Assessment & Plan (1) Hypokalemia: Plan: Likely from poor p.o. intake. Continue to replace. Improving. (2) Schizoaffective disorder: Plan: With history of medication noncompliance Patient denies history of this, reports she has not taken any medications in over a year MRI brain at psych recommendation given that psych sees situation out of proportion to apparent psychosis. (3) ABHISHEK (acute kidney injury): Plan: Yet again likely from poor p.o. intake. Gave another liter of fluid, p.o. intake is improving. Follow basic metabolic panel. Plan DVT prophylaxis: SCDs, low risk Diet: Safe tray CODE STATUS: Full code, patient admitted on 302 [facility] --> anticipate inpatient psych after medical dc Admission and Anticipated Discharge Date Admission Date: February 08, 2022 Subjective Feeling pretty good. No acute complaints. Nursing notes that she did fairly well with p.o. intake with breakfast. In discussing replacing fluids and electrolytes, we have a good and reasonable conversation. When discussing psychiatry getting involved, she starts to appear a bit defensive asking about where I might of come up with her having a psych diagnosis/paranoia/etc. Review of systems otherwise negative except for as above Review of Systems Review of Systems: All systems reviewed & are unremarkable except as noted in HPI & below Physical Exam Physical Exam: Awake and alert pleasant no distress. HEENT normocephalic atraumatic mucous membranes moist. Breathing unlabored no accessory muscle use good effort. Skin shows no rashes no pallor or icterus. Neuro without focal deficits. Results & Data Results & Data ([facility]) Vital Signs (Past 12 Hours) Vital Signs Temp Pulse Pulse Resp BP Pulse Ox O2 Del Method 02/09/22 19:25 98.4 F 108 H 18 170/79 H 95 Room Air 02/09/22 16:08 98.2 F 102 H 17 155/99 H 93 Room Air 02/09/22 16:28 113 H 02/09/22 16:00 Room Air 02/09/22 10:03 94 H 18 169/113 H 96 Room Air PG Care Time/CCT Total # of Minutes Spent Total Time Spent with Patient: Total time spent is greater than 50% in coordination of care (as documented) at patient's floor/unit and/or counseling patient: Coding Level of Care Code 74785 Subseq Hosp Care Lvl 3 Diagnoses Hypokalemia E87.6 Schizoaffective disorder F25.9 ABHISHEK (acute kidney injury) N17.9
[2022-02-10 06:13] LABS: BUN Creatinine Ratio 14.7 (10-20); Calcium 8.5 mg/dl (8.5-10.1); Creatinine Clr Calc Pharmacy 63.4 ml/min; Est GFR (Non-African American) 50.1 ml/min; Potassium 3.1 mmol/L (3.5-5.1)
[2022-02-10] MEDS ORDERED: POTASSIUM CHLORIDE CRTAB 20 MEQ TABCR PO STA (07:49)
[2022-02-10] MEDS ORDERED: LORazepam 2 MG/1 ML VIAL IV PRN (07:50)
--- NOTE | 2022-02-10 12:36 | Communication Note ---
Date of Service: February 10, 2022 Interim progress reviewed. Patient has been laughing inappropriately at times as if responding to internal stimuli. She would not consent to screening Xrays prior to sedatin/MRI per Dr. Medellin. Hasn't required IM prn. Has Haldol ordered. Dr. Medellin has requested communication with her primary provider to see if more receptive to recommendations.
--- NOTE | 2022-02-10 17:52 | Hospitalist Progress Note ---
Date of Service February 10, 2022 Assessment & Plan (1) Hypokalemia: Plan: Likely from poor p.o. intake. Continue to replace. Improving. Follow basic metabolic panel (2) Schizoaffective disorder: Plan: With history of medication noncompliance Patient denies history of this, reports she has not taken any medications in over a year Trying to obtain MRI brain at psych recommendation given that psych sees situation out of proportion to apparent psychosis/different than her prior psychotic episodes. Currently patient is declining/refusing this. A different physician assumes her care on my behalf tomorrow, and after discussion with psychiatry, for now we will see if another day in the hospital, and a different person discussing the situation with her might yield a different results. We also discussed the possibility of transfer to inpatient psych, obtaining the MRI down the roadhowever psych noted this would be much more difficult to obtain once she is under a psychiatric hospitalization. (3) ABHISHEK (acute kidney injury): Plan: Yet again likely from poor p.o. intake. Has gotten some IV fluids, creatinine improving. Follow p.o. intake. Follow basic metabolic panel. Plan DVT prophylaxis: SCDs, low risk Diet: Safe tray CODE STATUS: Full code, patient admitted on 302 Disposition: [facility] inpatient --> anticipate inpatient psych after medical dc Admission and Anticipated Discharge Date Admission Date: February 08, 2022 Subjective No complaints. Feeling okay. Questions getting MRI brain. Questions getting x-rays to look for metal. Wonders why she will be getting billed for so many tests. As I try to explain the rationale for the MRI, and subsequently explained the rationale for the x-rays to look for any metalshe then flatly notes that she does not believe she had anything wrong with her brain or had a stroke or anything like that and does not need the test. Whenever explained, to the best of my understanding, hospital billing processes, and that it would likely not be some sort of itemized bill that comes to her for further testing, but rather out of a lump of a DRG, she more or less ignores that rationale and c ircles back to just not wanting the testing done. Updated psychiatry. After noting that she was refusing any imaging, I asked if she would at least allow me to do a detailed neuro exam. She then asked for a different doctor, specifically asking if Dr. Veliz or (It was unclear) Maynor or Hitesh (when I asked her to clarify or ask where he was, she would not clarify the name, and told me "look it up"). Since I was unable to clarify who Dr. Mcguire or Hitesh was, but knew Dr. Veliz was an orthopedic surgeon practicing here, I reached out to him and his physician anesthetic assistant explaining the situation and seeing if it might be possible for Dr. Veliz to come to the room to provide the patient with a trusted face. Unfortunately this was not able to be facilitated. Review of Systems Review of Systems: All systems reviewed & are unremarkable except as noted in HPI & below Physical Exam Physical Exam: Awake alert oriented technically, and while she is smiling in no distress, as we start to discuss the testing/imaging, or even a detailed physical exam more, she starts to have a more heated and angry tone and facealthough when asking why she is getting angry, she denies that she is. HEENT normocephalic atraumatic mucous membranes moist. Breathing unlabored no accessory muscle use good effort. Skin shows no rashes no pallor or icterus. Obviously unable to do full neuro exam, but what I can observe shows cranial nerves II through XII appearing to be symmetric and grossly intact, gross motor appears to be symmetric and intact throughout. Mental status seems to be guarded with a degree of suspicion or outright paranoia. Results & Data Results & Data ([facility]) Vital Signs (Past 12 Hours) Vital Signs Temp Pulse Pulse Resp BP BP Pulse Ox 02/10/22 16:00 113 H 02/10/22 15:27 99.0 F 110 H 18 145/84 H 95 02/10/22 11:32 98.6 F 107 H 20 152/91 H 98 02/10/22 07:00 128 H 02/10/22 07:00 02/10/22 07:01 97.9 F 97 H 18 144/88 H 97 O2 Del Method 02/10/22 16:00 02/10/22 15:27 Room Air 02/10/22 11:32 Room Air 02/10/22 07:00 02/10/22 07:00 Room Air 02/10/22 07:01 Room Air PG Care Time/CCT Total # of Minutes Spent Total Time Spent with Patient: Total time spent is greater than 50% in coordination of care (as documented) at patient's floor/unit and/or counseling patient: Coding Level of Care Code 33850 Subseq Hosp Care Lvl 3 Diagnoses Hypokalemia E87.6 Schizoaffective disorder F25.9 ABHISHEK (acute kidney injury) N17.9
[2022-02-11 08:18] LABS: Basophils # (auto) 0.05 K/uL (0-0.2); Basophils % (auto) 0.5 %; Eosinophils # (auto) 0.19 K/uL (0-0.50); Hematocrit (blood only) 42.1 % (34.1-44.9); Hemoglobin 13.9 g/dl (12.0-16.0); Immature Granulocytes # (auto) 0.02 K/uL (0.00-0.02); Immature Granulocytes % (auto) 0.2 %; Lymphocytes # (auto) 3.21 K/uL (1.2-3.4); Lymphocytes % (auto) 34.3 %; Mean Corpuscular Volume 75.6 fL (80.0-100.0); Mean Platelet Volume 11.3 fL (9.4-12.3); Monocytes # (auto) 0.76 K/uL (0.24-0.82); Monocytes % (auto) 8.1 %; Neutrophils # (auto) 5.14 K/uL (1.4-6.5); Neutrophils % (auto) 54.9 %; Platelet Count 188 K/uL (130-400); RDW Coefficient of Variation 15.3 % (11.5-14.5); RDW Standard Deviation 41.4 fL (36.4-46.3); Red Blood Count 5.57 M/uL (3.93-5.22); White Blood Count 9.37 K/ul (4.8-10.8)
[2022-02-11 08:42] LABS: Calcium 8.4 mg/dl (8.5-10.1); Creatinine Clr Calc Pharmacy 61.8 ml/min; Est GFR (African American) 56.3 ml/min; Est GFR (Non-African American) 48.5 ml/min; Potassium 3.4 mmol/L (3.5-5.1)
[2022-02-11] MEDS: POTASSIUM CHLORIDE CRTAB 20 MEQ TABCR PO SCH ×3 (09:14→21:14)
--- NOTE | 2022-02-11 13:48 | Hospitalist Progress Note ---
Date of Service February 11, 2022 Assessment & Plan (1) Hypokalemia: Plan: Likely from poor p.o. intake. Continue to replace. Improving. Follow basic metabolic panel (2) Schizoaffective disorder: Plan: With history of medication noncompliance Patient denies history of this, reports she has not taken any medications in over a year Tried to obtain MRI brain on 2 consecutive days ay psych recommendation given that psych sees situation out of proportion to apparent psychosis/different than her prior psychotic episodes. Currently patient is declining/refusing this. Discussed with previous provider at sign off, do not feel this is an urgent manner, and will not sedate patient for MRI. This can be completed once psychosis improves. will repeate blood work in AM. (3) ABHISHEK (acute kidney injury): Plan: Yet again likely from poor p.o. intake. Has gotten some IV fluids, creatinine improving. Follow p.o. intake. Follow basic metabolic panel. Plan DVT prophylaxis: SCDs, low risk Diet: Safe tray CODE STATUS: Full code, patient admitted on 302 Disposition: [facility] [place] inpatient --> anticipate inpatient psych after medical dc Admission and Anticipated Discharge Date Admission Date: February 08, 2022 Subjective Patient gets agitated by questions. She is refusing imaging. Review of Systems Review of Systems: All systems reviewed & are unremarkable except as noted in HPI & below Physical Exam Constitutional: WD/WN, vitals as above Eyes: + anicteric sclerae ENMT: external ear and nose normal, oropharynx normal Neck: normal visual inspection Respiratory: normal respiratory effort Cardiovascular: Rate/Rhythm: + tachycardic Gastrointestinal (Abdomen): Inspection/Auscultation: abdomen normal to inspection Neurologic: normal touch/pain/proprioception Results & Data [facility] Vital Signs (Past 12 Hours) Vital Signs Temp Pulse Resp BP Pulse Ox O2 Del Method 02/11/22 08:26 37.0 C 109 H 18 147/92 H 94 Room Air PG Care Time/CCT Total # of Minutes Spent Total Time Spent with Patient: Total time spent is greater than 50% in coordination of care (as documented) at patient's floor/unit and/or counseling patient: Coding Level of Care Code 44953 Subseq Hosp Care Lvl 3 Diagnoses Hypokalemia E87.6 Schizoaffective disorder F25.9 ABHISHEK (acute kidney injury) N17.9 Time Spent (min) 35
--- NOTE | 2022-02-11 22:27 | Electrocardiogram Report ---
Test Reason : Blood Pressure : / mmHG Vent. Rate : 099 BPM Atrial Rate : 099 BPM P-R Int : 126 ms QRS Dur : 108 ms QT Int : 368 ms P-R-T Axes : 062 -15 162 degrees QTc Int : 472 ms Sinus rhythm with occasional Premature ventricular complexes Abnormal ECG When compared with ECG of 23-SEP-2014 21:58, T wave inversion now evident in Inferolateral leads Confirmed by Perez Aranda ([id number]) on 02/11/2022 10:26:58 PM Referred By: REFERRED SELF Confirmed By:Perez Aranda
[2022-02-12 06:21] LABS: Hematocrit (blood only) 38.4 % (34.1-44.9); Hemoglobin 12.7 g/dl (12.0-16.0); Mean Corpuscular Hemoglobin 25.5 pg (25.0-34.0); Mean Corpuscular Hgb Conc 33.1 g/dL (32.0-36.0); Mean Corpuscular Volume 77.1 fL (80.0-100.0); Mean Platelet Volume 11.6 fL (9.4-12.3); Platelet Count 158 K/uL (130-400); RDW Coefficient of Variation 15.8 % (11.5-14.5); RDW Standard Deviation 43.2 fL (36.4-46.3); Red Blood Count 4.98 M/uL (3.93-5.22); White Blood Count 8.94 K/ul (4.8-10.8)
[2022-02-12 06:54] LABS: Albumin Level 3.3 gm/dl (3.4-5.0); BUN Creatinine Ratio 21.4 (10-20); Bilirubin Direct 0.1 mg/dl (0-0.2); Bilirubin,Total 0.4 mg/dl (0.2-1.0); C Reactive Protein 0.59 mg/dl (0-0.5); Calcium 7.9 mg/dl (8.5-10.1); Creatinine Clr Calc Pharmacy 65.7 ml/min; Est GFR (African American) 60.5 ml/min; Est GFR (Non-African American) 52.2 ml/min; Potassium 3.1 mmol/L (3.5-5.1); Total Protein 6.1 gm/dl (6.0-8.3)
[2022-02-12] MEDS: POTASSIUM CHLORIDE CRTAB 20 MEQ TABCR PO SCH (08:24)
--- NOTE | 2022-02-12 09:39 | Discharge Summary ---
Date of Service February 12, 2022 Admission HPI Per Admitting Provider Sun is a 61-year-old female with a past medical history of schizoaffective disorder versus bipolar with psychosis and recurrent admissions for psychosis and medication noncompliance who was found at home in the dark with furniture saying people were moving her furniture but she did not know who, appearing acutely psychotic, and who had not eaten in several days. She is brought in on 302 status. Psych liaison was consulted by ER provider and patient was recommended for admission and behavioral health inpatient stay; however patient was acutely hypokalemic with a admitting potassium of 2.6, ABHISHEK to 1.59 and was recommended for medical optimization prior to transfer to [facility]. Patient is seen in the emergency department. At time bedside visit she is cooperative, tangential. She reports she does not know why she is in the hospital, just that the police told her she had to come in. Discussed that they were concerned as her house was disorganized, she had not eaten in many days, and her potassium was low. She reports that she was not supposed to eat because she has to be able to digest food and right now she cannot, does not elaborate further. She reports at time of bedside visit she is not having any abdominal pain, nausea, discomfort and feels like she can eat and would be appreciative of eating a turkey sandwich. She reports that she sometimes gets help to grocery shop. When asked if she has any AH/VH/SI/HI patient laughs continuously" I am not getting into that with you, you should call Dr. Tejinder Mcguire and Jose Alfredo or the higher ups. "Discussed that her potassium levels were very low and this can affect heart, and what her thought symptoms were. She reports that she feels fine and is not concerned about this, but is agreeable to having potassium replaced. Oriented to place, does not answer orientation questions of year/date. Is oriented to name. Denies any other medical problems, reports she does not need any medications and has not taken medications in over a year. As ked if patient recalls taking haloperidol, patient reports "higher ups told me I did not need to take that, you can take it up with them "as to who patient has that helps her at home, noting it must be difficult after her has passed. Patient reports that there are people like help drive her sometimes, but does not elaborate further Medical history, surgical history, allergies reviewed at bedside and patient denies these, although unreliable historian. Denies she has any medical history or medical problems or hospitalizations. Social History: Denies tobacco/ETOh Code Status: Full, 302 on admission Principal Diagnosis schizoaffective disorder Discharge Exam Constitutional WD/WN, vitals as above Eyes + anicteric sclerae ENMT external ear and nose normal, oropharynx normal Neck normal visual inspection Respiratory normal respiratory effort Cardiovascular Rate/Rhythm: + tachycardic Gastrointestinal (Abdomen) Inspection/Auscultation: abdomen normal to inspection Neurologic normal touch/pain/proprioception Discharge Data Allergies Allergy/AdvReac Type Severity Reaction Status Date / Time latex Allergy Unknown Unknown Verified 02/08/22 22:43 Penicillins Allergy Unknown PT CAN NOT Verified 02/08/22 22:43 REMEMBER (TOLERATES CEFAZOLIN) oxycodone AdvReac Intermediate NAUSEA Verified 02/08/22 22:43 Consultations 02/08/22 22:09 ED Decision to Admit Stat 02/09/22 00:52 Consult Behavioral Health Liaison Routine 02/09/22 09:07 Consult Psychiatry Routine Hospital Course (1) Hypokalemia: Likely from poor p.o. intake. Continue to replace. Improving. Will recommend to check potassium daily and continue TID dosing until potassium has stabilized. (2) Schizoaffective disorder: With history of medication noncompliance Patient denies history of this, reports she has not taken any medications in over a year Tried to obtain MRI brain on 2 consecutive days ay psych recommendation given that psych sees situation out of proportion to apparent psychosis/different than her prior psychotic episodes. Currently patient is declining/refusing this. Discussed with previous provider at sign off, do not feel this is an urgent manner, and will not sedate patient for MRI. This can be completed once psychosis improves. (3) ABHISHEK (acute kidney injury): Yet again likely from poor p.o. intake. Has gotten some IV fluids, creatinine improving. Follow p.o. intake. Follow basic metabolic panel. Plan DVT prophylaxis: SCDs, low risk Diet: Safe tray CODE STATUS: Full code, patient admitted on 302 Total Time Total Time Spent Total Time Spent (In Minutes): 35 Discharge Plan Discharge Items Patient Disposition: Home - Self-Care Reason For Visit: HYPOKALEMIA, 302, HX SCHIZOAFFECTIVE Discharge Diagnosis: hypokalemisa, schizoaffective Activity: Resume your previous activity Non-emergency contact: Primary Care Provider Call non-emergency contact if: you have any medication questions Follow-up/Referrals: Femi Cerna MD [Primary Care Provider] - 02/17/22 3:25 pm (follow up with [facility] Location February 17, 2022 @ 3:25pm) Diet: Regular Addtl Attending Provider Instructions: Recommend checking potassium daily until it stabilize. Pending Studies at Discharge: No Stand-Alone Forms: My [facility], Smoking Cessation Medications and DC Order Prescriptions: New potassium chloride 20 mEq Tablet,Er Particles/Crystals 20 meq PO TID Qty: 0 0RF Discharge Orders: Discharge Order (Routine); Ordered 02/12/22 Ordered By: Yogesh Montes Admission Data Admit Date/Time: 02/08/22 23:02 Attending Provider: Yogesh Montes Admit Provider: Francisco Gomez Primary Care Provider: Femi Cerna Other Providers: Francisco Gomez ; Radha Hair ; Kirti Bunch Other Interventions: Discharge Summary Assessment (RN) Last Done: 02/12/22 10:50 Coding Level of Care Code D/C DAY MANAGEMENT >30 MINS Diagnoses Hypokalemia E87.6 Schizoaffective disorder F25.9 ABHISHEK (acute kidney injury) N17.9
--- NOTE | 2022-02-12 10:25 | Communication Note ---
Date of Service: February 12, 2022 patient seen, continues to deny need for inpatient care. Has been observed laughing inappropriately and requires potassium packing to be reviewed before she will accept. States that she won't sign any papers without Dr. Proctor reviewing them. States she will refuse Haldol. At this point given the holiday/limited community support, lengthy list of co ncerns about ability to care for self due to schizophrenia patient will be admitted to on a 302 involuntary commitment[address] Montes has medically cleared patient.
== END 2022-02-12 12:14 | disposition home or self-care (01) | DRG 641 ==
LOC: ED 20:08 → SUATTDRO 23:02 → EDINP 23:02 → 4W 02-09 00:53

== ENCOUNTER 2022-02-12 11:06 | Inpatient (IN) ==
[2022-02-12] MEDS ORDERED: ALUMINUM/MAGNESIUM SUSP 30 ML UDC PO PRN (11:07)
[2022-02-12] MEDS ORDERED: SODIUM CHLORIDE 0.65% NA SOLN 45 ML (OCEAN) PRN (11:07)
[2022-02-12] MEDS ORDERED: BISMUTH SUBSALICYLATE LIQD 236 ML PO PRN (11:07)
[2022-02-12] MEDS ORDERED: MAGNESIUM HYDROXIDE SUSP 30 ML UDC PO PRN (11:07)
[2022-02-12] MEDS ORDERED: hydrOXYzine HCl 25 MG TAB PO PRN ×2 (11:07)
[2022-02-12] MEDS ORDERED: haloperidoL 5 MG TAB PO PRN (14:14)
[2022-02-12] MEDS ORDERED: LORazepam 0.5 MG TAB PO PRN (14:14)
[2022-02-12] MEDS ORDERED: BENZTROPINE MESYLATE 0.5 MG TAB PO PRN (14:14)
--- NOTE | 2022-02-12 14:14 | History & Physical ---
Date of Service February 12, 2022 Impression / Recommendations Impression 61 yo female with a hx of schizophrenia/schizoaffective do, admit medically for ABHISHEK and hypokalemia in the setting of poor self care during a period of noncompliance with Haldol. She was unable to complete work up on med floor to rule out vascular event as part of possible cognitive decline, no prior dx of dementia so proceeded with 302 given lack of community resources around holiday and hope that she would agree to resume antipsychotic medication. (1) Schizophrenia: (2) Hypokalemia: Plan The patient was admitted to the [facility]) on q15 min checks (behavioral with suicide precautions) for safety. The patient will participate in group, recreational, and milieu therapies and will be offered additional individual and family sessions as clinically appropriate. will offer prn Haldol. would benefit from ARANGO. Currently refusing meds but taking potassium repletion with much encouragement. Inventory Assets Strengths: hospitalizations far apart, already known to office of aging Needs: resume outpatient services, antipsychotic medication Suicide Risk Level Suicide Risk Level: Low (q15 min observation checks) Risk Factors Assessment : No Health Problems: No Mental Health Diagnoses: Yes Substance Use Disorders: No Previous Attempt: No Previous Psychiatric Hospitalization: Yes Protective Factors Assessment : No Supportive Family: Yes Psychiatric History Identifying Data 61 yo female with a history of schizophrenia/schizoaffective dx, lives alone in [facility], was admitted on 02/12/22 12:24 on a 302 involuntary commitment for inability to care for self due to paranoia and disorganization. She was initially admitted to the medical floor on 02/08/22 for treatment of hypokalemia. Chief Complaint "I don't understand why I need to be over here, the police just need to check my food". History of Present Illness Patient was initial brought to ED on a 302 warrant: The police have been called by the [facility] post office for backed up mail and several welfare checks. Tonight upon entering at the request of aging due to a foul smell, the house was entirely unkempt and filthy, Sun had lost a substantial amount of weight, and did not recognize me or her [id number]. There is only a bit of food, and the lunchmeat in her refrigerator is from November. It is clear Sun cannot take care of herself, has not been eating, has not washed her hair since October 21, and there is trash. As per my initial consultation on 02/09/22 there is significant documentation that the patient is not attending to usual iADLs that require higher executive functioning like arranging for snow removal or paying bills. History is that she was last seen by Dr. Joyce's office this summer with 2 month supply of medication is consistent with Surescripts so likely off Haldol for 3 months. While still boarding in the ED she seemed confused as to her actual providers ( listing names of older providers from [facility]), denies that she was ever hospital/3S. Chart review shows 2 prior inpatient stays on 302 in 2000 and then not again until 2014, both times for paranoia (cameras in workplace), ideas of reference. On the medical floor she repeatedly refused imaging and medical felt there was insufficient evolving neurologic symptoms to warrant MRI under sedation. She required to see packaging on potassium before she would accept it. Refused to sign papers due to paranoia though later said she was illiterate. She was on 1 on 1 and noted to be laughing inappropriately as if responding to internal stimuli Past Psychiatric History Previous Psych History: Previous Psych History: Citizen Of [place] Psychiatry Outpatient Services: none Previous Psych Admissions: 2000 and 2014 [facility] for delusions Do You Have Access To A Gun?: No History of Previous Suicide Attempt: No Past Medication Trials: Risperdal, Geodon, Haldol 10 mg daily, Cogentin, Sertraline 100 mg Current Psychiatric Diagnosis: Schizophrenia Allergies Allergy/AdvReac Type Severity Reaction Status Date / Time latex Allergy Unknown Unknown Verified 02/08/22 22:43 Penicillins Allergy Unknown PT CAN NOT Verified 02/08/22 22:43 REMEMBER (TOLERATES CEFAZOLIN) oxycodone AdvReac Intermediate NAUSEA Verified 02/08/22 22:43 Home Medications Medication Instructions Recorded Confirmed Type potassium chloride 20 mEq 20 meq PO TID #0 tabs 02/12/22 Rx tablet,extended release(part/cryst) Family History Family History of: Doesn't Know Alcohol History Hx of Alcohol Use Over the Past 12 Months: No AUDIT Total Score: 0 Smoking Use Have You Smoked or Used Tobacco Products in the Last 30 Days: No Smoking Status: Never smoker Substance History Hx of Prescription Med Misuse Over the Past 12 Months: No Hx of Over the Counter Med Misuse Over the Past 12 Months: No Hx of Inhalent Misuse Over the Past 12 Months: No Hx of Organic Substance Use Over the Past 12 Months: No Hx of Illegal Substances/Street Drug Use Over Past 12 Months: No Problems as a Result of Past Substance Use: None Identified Personal History Living Arrangements: Home Employment Status: Retired ([employer] Marital Status: Number Of Children: 0 Beliefs That Will Affect Care: None Hx Legal Problems: No Psychological Trauma History Comment: none reported Patient History Medical History (Updated 02/12/22 @ 14:10 by Kirti Bunch MD) ABHISHEK (acute kidney injury) Hypokalemia Noncompliance with medications Schizophrenia Family History Other Family history non-contributory Social History Smoking Status: Never smoker Second Hand Exposure: No; Hx Alcohol Use: No Hx Substance Use: No Preferred Language: Thai Communication Ability: Impaired Rotary Furnace Tender Required: No Beliefs That Will Affect Care: None Current Living Situation: Alone Feels Safe at Home: Yes Assistive Devices: None Review of Systems Review of Systems: All systems reviewed & are unremarkable except as noted in HPI & below Physical Exam Psychiatric: Orientation: alert, oriented to person and oriented to place Apperance: appropriately dressed and appropriately groomed Eye Contact: + fair eye contact Motor Behavior: no abnormal motor movements Speech: + loud speech Affect: + irritable affect Mood: + irritable mood Thought Process: + perseveration and + concrete thought process Thought Content: + paranoid Suicidal Thoughts: denies suicidal thoughts Homicidal Thoughts: denies homicidal thoughts Hallucinations: no auditory hallucinations (unreliable education reporter but doesn't appear to be responding to internal stimuli) and no visual hallucinations Cognition: attention grossly intact and language grossly intact Estimated Intelligence: consistent with education level Insight: + limited insight Judgement: + limited judgement Vital Signs (Past 24 Hours): Last Vital Signs Temp 36.7 C 02/12/22 13:02 Pulse 72 02/12/22 13:02 Resp 14 02/12/22 13:02 BP 134/76 02/12/22 13:02 Exam Statement: A physical exam was performed on the medical floor by Drs. Rojas and later Dr. Montes for the purposes of the inpatient H&P and medical clearance. I accept their physicals as correct and adequate for the purposes of the inpatient physical exam. Results & Data ([facility]) Laboratory Results see medical admission Current Inpatient Medications Current Inpatient Medications: Current Inpatient Medications Acetaminophen (Acetaminophen 325 Mg Tab) 650 mg PO Q4H PRN PRN Reason: Headache or Minor Fever Stop: 03/14/22 11:06 Al Hydrox/Mg Hydrox/Simethicone (Aluminum/Magnesium Susp 30 Ml Udc) 30 ml PO Q4H PRN PRN Reason: GI Upset Stop: 03/14/22 11:06 Bismuth Subsalicylate (Bismuth Subsalicylate Liqd 236 Ml) 15 ml PO PRN PRN PRN Reason: Loose Stool Stop: 03/14/22 11:06 Hydroxyzine HCl (Hydroxyzine Hcl 25 Mg Tab) 50 mg PO HSZ PRN PRN Reason: Insomnia Stop: 03/14/22 11:06 Hydroxyzine HCl (Hydroxyzine Hcl 25 Mg Tab) 25 mg PO Q4H PRN PRN Reason: Anxiety Stop: 03/14/22 11:06 Magnesium Hydroxide (Magnesium Hydroxide Susp 30 Ml Udc) 30 ml PO DAILY PRN PRN Reason: Constipation Stop: 03/14/22 11:06 Potassium Chloride (Potassium Chloride Crtab 20 Meq Tabcr) 20 meq PO TID PAM Stop: 03/14/22 13:59 Sodium Chloride (Sodium Chloride 0.65% Na Soln 45 Ml ([place])) 1 - 2 sprays NA PRN PRN PRN Reason: Nasal Dryness/Congestion Stop: 03/14/22 11:06
[2022-02-12] MEDS: POTASSIUM CHLORIDE CRTAB 20 MEQ TABCR PO SCH ×2 (15:55→20:00)
[2022-02-13] MEDS: POTASSIUM CHLORIDE CRTAB 20 MEQ TABCR PO SCH ×3 (10:22→20:18)
--- NOTE | 2022-02-13 12:40 | Psychiatric Progress Note ---
Date of Service February 13, 2022 Impression / Recommendations Impression 61 yo female with a hx of schizophrenia/schizoaffective do, admit medically for ABHISHEK and hypokalemia in the setting of poor self care during a period of noncompliance with Haldol. She was unable to complete work up on med floor to rule out vascular event as part of possible cognitive decline, no prior dx of dementia so proceeded with 302 given lack of community resources around holiday and hope that she would agree to resume antipsychotic medication. 02/13/22: less irritable, eating, sleeping (1) Schizophrenia: (2) Hypokalemia: Plan 02/13/22: CM has communicated with [facility] who would like to seek emergency guardianship. 02/12/22: The [facility]) on q15 min checks (behavioral with suicide precautions) for safety. The patient will participate in group, recreational, and milieu therapies and will be offered additional individual and family sessions as clinically appropriate. will offer prn Haldol. would benefit from ARANGO. Currently refusing meds but taking potassium repletion with much encouragement. Inventory Assets Strengths: hospitalizations far apart, already known to office of aging Needs: resume outpatient services, antipsychotic medication Suicide Risk Level Suicide Risk Level: Low (q15 min observation checks) Risk Factors Assessment : No Health Problems: No Mental Health Diagnoses: Yes Substance Use Disorders: No Previous Attempt: No Previous Psychiatric Hospitalization: Yes Protective Factors Assessment : No Supportive Family: Yes Interval History Identifying Information 61 yo female with a history of schizophrenia/schizoaffective dx, [facility], was admitted on02/12/22 12:24 on a 302 involuntary commitment for inability to care for self due to paranoia and disorganization. She was initially admitted to the medical floor on 02/08/22 for treatment of hypokalemia. Chief Complaint "I still don't know why I'm here but it's better back here". Review of Systems Sleep Information Total Hours of Sleep: 7.5 Meal Information Percent Meal Consumed - Breakfast: 100 Percent Meal Consumed - Lunch: 50 Percent Meal Consumed - Dinner: 100 Subjective Subjective Patient was seen & assessed and interval progress reviewed with nursing and social work. Patient was initially irritable with staff questions but is eating meals in day room and taking her potassium supplement without incident. She laughs to self inappropriately as if responding to internal stimuli. Her sister in law ( is ) is reportedly cleaning up some trash from the home. She did confirm that the patient didn't recognize her when came to visit but also noted that she hadn't had face to face contact with her in 5 years. Physical Exam Psychiatric Orientation: alert, oriented to person and oriented to place Apperance: appropriately dressed and appropriately groomed Eye Contact: + fair eye contact Motor Behavior: no abnormal motor movements Speech: + loud speech Affect: + constricted affect Mood: + irritable mood Thought Process: + perseveration and + concrete thought process Thought Content: + paranoid Suicidal Thoughts: denies suicidal thoughts Homicidal Thoughts: denies homicidal thoughts Hallucinations: no auditory hallucinations and no visual hallucinations Cognition: language grossly intact Estimated Intelligence: consistent with education level Insight: + poor insight Judgement: + poor judgement Vital Signs (Past 24 Hours) Last Vital Signs Temp 36.5 C 02/13/22 06:49 Pulse 108 H 02/13/22 06:50 Resp 18 02/13/22 06:49 BP 151/82 H 02/13/22 06:50 Results & Data ([facility]) Current Inpatient Medications Current Inpatient Medications: Current Inpatient Medications Acetaminophen (Acetaminophen 325 Mg Tab) 650 mg PO Q4H PRN PRN Reason: Headache or Minor Fever Stop: 03/14/22 11:06 Al Hydrox/Mg Hydrox/Simethicone (Aluminum/Magnesium Susp 30 Ml Udc) 30 ml PO Q4H PRN PRN Reason: GI Upset Stop: 03/14/22 11:06 Benztropine Mesylate (Benztropine Mesylate 0.5 Mg Tab) 0.5 mg PO Q6 PRN PRN Reason: Muscle Spasm Stop: 03/14/22 14:13 Bismuth Subsalicylate (Bismuth Subsalicylate Liqd 236 Ml) 15 ml PO PRN PRN PRN Reason: Loose Stool Stop: 03/14/22 11:06 Haloperidol (Haloperidol 5 Mg Tab) 5 mg PO Q6 PRN PRN Reason: Anxiety/Agitation Stop: 03/14/22 14:13 Hydroxyzine HCl (Hydroxyzine Hcl 25 Mg Tab) 50 mg PO HSZ PRN PRN Reason: Insomnia Stop: 03/14/22 11:06 Hydroxyzine HCl (Hydroxyzine Hcl 25 Mg Tab) 25 mg PO Q4H PRN PRN Reason: Anxiety Stop: 03/14/22 11:06 Lorazepam (Lorazepam 0.5 Mg Tab) 0.5 mg PO Q6 PRN PRN Reason: Anxiety Stop: 03/14/22 14:13 Magnesium Hydroxide (Magnesium Hydroxide Susp 30 Ml Udc) 30 ml PO DAILY PRN PRN Reason: Constipation Stop: 03/14/22 11:06 Potassium Chloride (Potassium Chloride Crtab 20 Meq Tabcr) 20 meq PO TID PAM Stop: 03/14/22 13:59 Last Admin: 02/13/22 10:22 Dose: 20 meq Sodium Chloride (Sodium Chloride 0.65% Na Soln 45 Ml ([place])) 1 - 2 sprays NA PRN PRN PRN Reason: Nasal Dryness/Congestion Stop: 03/14/22 11:06
[2022-02-14] MEDS: POTASSIUM CHLORIDE CRTAB 20 MEQ TABCR PO SCH (09:36)
--- NOTE | 2022-02-14 10:02 | Psychiatric Progress Note ---
Date of Service February 14, 2022 Impression / Recommendations Impression 61 yo female with a hx of schizophrenia/schizoaffective do, admitted medically for ABHISHEK and hypokalemia in the setting of poor self care during a period of noncompliance with Haldol. She was unable to complete work up on med floor to rule out vascular event as part of possible cognitive decline due to paranoia, no prior dx of dementia so proceeded with 302 given lack of community resources around holiday and hope that she would agree to resume antipsychotic medication. Diagnostically seems consistent with episode of latisha and psychosis due to schizoaffective disorder. MNPR due to severe paranoia and psychosis 02/14/22: very poor sleep last night, seems to be responding to intenal stimuli with ongoing psychosis, reviewed interim progress per Dr. Bunch's notes. Adjust K+ supplementation to BID dosing of equivalent total daily dose to reduce need for frequent medications as this worsens her paranoia. Scheduled seroquel to begin tonight to help with insomnia and psychosis. Fasting lipid panel and repe at K+ level ordered for tomorrow with hope if she accepts seroquel tonight she'll be less paranoia and may allow for labwork. (1) Schizophrenia: (2) Hypokalemia: Plan 02/14/22: Start seroquel 25mg qhs. Attempt fasting lipid panel and CMP tomorrow morning. 02/13/22: CM has communicated with [facility]OA who would like to seek emergency guardianship. 02/12/22: The patient was admitted to the [facility] ([facility]) on q15 min checks (behavioral with suicide precautions) for safety. The patient will participate in group, recreational, and milieu therapies and will be offered additional individual and family sessions as clinically appropriate. will offer prn Haldol. would benefit from ARANGO. Currently refusing meds but taking potassium repletion with much encouragement. Inventory Assets Strengths: hospitalizations far apart, already known to office of aging Needs: resume outpatient services, antipsychotic medication Suicide Risk Level Suicide Risk Level: Low (q15 min observation checks) (paranoia and psychosis but no statements of depression nor SI, comes to nurses with needs) Risk Factors Assessment : No Health Problems: No Mental Health Diagnoses: Yes Substance Use Disorders: No Previous Attempt: No Previous Psychiatric Hospitalization: Yes Protective Factors Assessment : No Supportive Family: Yes Interval History Identifying Information 61 yo female with a history of schizophrenia/schizoaffective dx, lives alone in [facility] [place], was admitted on02/12/22 12:24 on a 302 involuntary commitment for inability to care for self due to paranoia and disorganization. She was initially admitted to the medical floor on 02/08/22 for treatment of hypokalemia. Chief Complaint "If I listen to smooth jazz can I have a new room?". Review of Systems Sleep Information Total Hours of Sleep: 1 Meal Information Percent Meal Consumed - Breakfast: 100 Percent Meal Consumed - Lunch: 100 Percent Meal Consumed - Dinner: 100 Subjective Subjective Patient was seen & assessed and interval progress reviewed with treatment team nursing and social work. Only slept 1 hour overnight and then an additional 2 hours this morning. Responding to internal stimuli all evening while in her room and talking to herself again all day today loudly. Remains very paranoid about labwork, imaging attempts. Only accepting po potassium supplementation. Tells me she will not take any other medications as "I was told I'm not allowed to take any medications". Tells me she will refuse the seroquel I've ordered to start tonight. States her mood is "fantastic, well I am fantastic" and initially tells me she has no idea where she is but when asked to guess knows she is in "[facility] [place]" and in "[place]" but disagrees with me that she could be at [facility]. Repeatedly asking nursing if she can switch rooms and frustrated that this is not an option currently. Physical Exam Psychiatric Orientation: alert, oriented to person and oriented to place Apperance: appropriately dressed and appropriately groomed Eye Contact: + fair eye contact Motor Behavior: no abnormal motor movements Speech: + loud speech (hyperverbal ) Affect: + flat affect; + mood not congruent with affect Mood: + irritable mood Thought Process: + perseveration and + concrete thought process Thought Content: + paranoid and + delusions Suicidal Thoughts: denies suicidal thoughts Homicidal Thoughts: denies homicidal thoughts Hallucinations: + auditory hallucinations (seems to be responding to internal stimuli); no visual hallucinations Cognition: language grossly intact; + recent memory not intact and + attention not intact Estimated Intelligence: consistent with education level Insight: + poor insight Judgement: + poor judgement Vital Signs (Past 24 Hours) Last Vital Signs Temp 36.7 C 02/14/22 06:00 Pulse 95 H 02/14/22 06:00 Resp 18 02/14/22 06:00 BP 138/86 02/14/22 06:00 Pulse Ox 96 02/14/22 06:00 O2 Del Method 02/14/22 06:00 Results & Data ([facility]) Current Inpatient Medications Current Inpatient Medications: Current Inpatient Medications Acetaminophen (Acetaminophen 325 Mg Tab) 650 mg PO Q4H PRN PRN Reason: Headache or Minor Fever Stop: 03/14/22 11:06 Al Hydrox/Mg Hydrox/Simethicone (Aluminum/Magnesium Susp 30 Ml Udc) 30 ml PO Q4H PRN PRN Reason: GI Upset Stop: 03/14/22 11:06 Benztropine Mesylate (Benztropine Mesylate 0.5 Mg Tab) 0.5 mg PO Q6 PRN PRN Reason: Muscle Spasm Stop: 03/14/22 14:13 Bismuth Subsalicylate (Bismuth Subsalicylate Liqd 236 Ml) 15 ml PO PRN PRN PRN Reason: Loose Stool Stop: 03/14/22 11:06 Haloperidol (Haloperidol 5 Mg Tab) 5 mg PO Q6 PRN PRN Reason: Anxiety/Agitation Stop: 03/14/22 14:13 Hydroxyzine HCl (Hydroxyzine Hcl 25 Mg Tab) 50 mg PO HSZ PRN PRN Reason: Insomnia Stop: 03/14/22 11:06 Hydroxyzine HCl (Hydroxyzine Hcl 25 Mg Tab) 25 mg PO Q4H PRN PRN Reason: Anxiety Stop: 03/14/22 11:06 Lorazepam (Lorazepam 0.5 Mg Tab) 0.5 mg PO Q6 PRN PRN Reason: Anxiety Stop: 03/14/22 14:13 Magnesium Hydroxide (Magnesium Hydroxide Susp 30 Ml Udc) 30 ml PO DAILY PRN PRN Reason: Constipation Stop: 03/14/22 11:06 Potassium Chloride (Potassium Chloride 10 Meq Tabcr) 30 meq PO BID PAM Stop: 03/16/22 20:59 Quetiapine Fumarate (Quetiapine Fumarate 25 Mg Tablet) 25 mg PO HS PAM Stop: 03/16/22 21:59 Sodium Chloride (Sodium Chloride 0.65% Na Soln 45 Ml ([place])) 1 - 2 sprays NA PRN PRN PRN Reason: Nasal Dryness/Congestion Stop: 03/14/22 11:06
[2022-02-14] MEDS: POTASSIUM CHLORIDE 10 MEQ TABCR PO SCH (21:22)
[2022-02-14] MEDS ORDERED: QUEtiapine FUMARATE 25 MG TABLET PO SCH (22:00)
[2022-02-15 07:27] LABS: Alanine Aminotransferase 25 U/L (7-52); Albumin Globulin Ratio 1.2 (0.9-2); Albumin Level 3.4 gm/dl (3.4-5.0); Alkaline Phosphatase 111 U/L (34-104); Anion Gap 7 (3-11); Aspartate Aminotransferase 22 U/L (13-39); Bilirubin,Total 0.4 mg/dl (0.2-1.0); Blood Urea Nitrogen 25 mg/dl (6-23); Calcium 7.9 mg/dl (8.5-10.1); Carbon Dioxide 27 mmol/L (21-32); Chloride 107 mmol/L (98-107); Chol HDL Ratio 3.6 (0-5); Cholesterol 168 mg/dl (0-200); Est GFR (African American) 69.4 ml/min; Est GFR (Non-African American) 59.9 ml/min; Globulin 2.8 gm/dl (2.5-4.0); Glucose 93 mg/dl (70-99(Fasting)); HDL Cholesterol 47 mg/dl; LDL Cholesterol Calculated 77 mg/dl; Potassium 3.6 mmol/L (3.5-5.1); Sodium 141 mmol/L (136-145); Total Protein 6.2 gm/dl (6.0-8.3); Triglycerides 220 mg/dl (0-150); VLDL Cholesterol 44 mg/dl (0-30)
[2022-02-15] MEDS: POTASSIUM CHLORIDE 10 MEQ TABCR PO SCH (08:58)
[2022-02-15] MEDS ORDERED: haloperidoL 5 MG TAB PO SCH (09:15)
[2022-02-15] MEDS: POTASSIUM CHLORIDE CRTAB 20 MEQ TABCR PO SCH ×3 (09:33→20:39)
--- NOTE | 2022-02-15 14:48 | Psychiatric Progress Note ---
Date of Service February 15, 2022 Impression / Recommendations Impression 61 yo female with a hx of schizophrenia/schizoaffective do, admitted medically for ABHISHEK and hypokalemia in the setting of poor self care during a period of noncompliance with Haldol. She was unable to complete work up on med floor to rule out vascular event as part of possible cognitive decline due to paranoia, no prior dx of dementia so proceeded with 302 given lack of community resources around holiday and hope that she would agree to resume antipsychotic medication. Diagnostically seems consistent with episode of latisha and psychosis due to schizoaffective disorder. MNPR due to severe paranoia and psychosis 02/15/22: continues with poor sleep and psychosis consistent with latisha and schizoaffective disorder, allowed dose of haldol which is what she was previously stable on (15mg daily). K+ improved on labwork. Elevated TGs but fasting lipid panel otherwise normal. AIMS score of 0. EKG without QTc prolongation so will proceed with haldol BID in effort to titrate to previous outpatient dose and will then consolidate to qAM. She was unable to tolerate to discussion of risks/benefits/alternatives but agreed to take haldol. Plan for 303 conversion. (1) Schizophrenia: (2) Hypokalemia: Plan 02/15/22: Stop seroquel. Start haldol 5mg BID. 02/14/22: Start seroquel 25mg qhs. Attempt fasting lipid panel and CMP tomorrow morning. 02/13/22: CM has communicated with [facility]OA who would like to seek emergency guardianship. 02/12/22: The patient was admitted to the [facility] ([facility]) on q15 min checks (behavioral with suicide precautions) for safety. The patient will participate in group, recreational, and milieu therapies and will be offered additional individual and family sessions as clinically appropriate. will offer prn Haldol. would benefit from ARANGO. Currently refusing meds but taking potassium repletion with much encouragement. Inventory Assets Strengths: hospitalizations far apart, already known to office of aging Needs: resume outpatient services, antipsychotic medication Suicide Risk Level Suicide Risk Level: Low (q15 min observation checks) (paranoia and psychosis but no statements of depression nor SI, comes to nurses with needs) Risk Factors Assessment : No Health Problems: No Mental Health Diagnoses: Yes Substance Use Disorders: No Previous Attempt: No Previous Psychiatric Hospitalization: Yes Protective Factors Assessment : No Supportive Family: Yes Interval History Identifying Information 61 yo female with a history of schizophrenia/schizoaffective dx, lives alone in [facility], was admitted on02/12/22 12:24 on a 302 involuntary commitment for inability to care for self due to paranoia and disorganization. She was initially admitted to the medical floor on 02/08/22 for treatment of hypokalemia. Chief Complaint "I don't think so". Review of Systems Sleep Information Total Hours of Sleep: 1.5 Meal Information Percent Meal Consumed - Breakfast: 100 Percent Meal Consumed - Lunch: 100 Percent Meal Consumed - Dinner: 100 Subjective Subjective Patient was seen & assessed and interval progress reviewed with treatment team nursing and social work. Awake all night responding to internal stimuli. Seems to have some paranoia but pleased with room change with some lessening of this. Very suspicious of medications. Refused seroquel last night but accepted haldol this morning. Allowed labwork and EKG. Physical Exam Psychiatric Orientation: alert, oriented to person and oriented to place Apperance: appropriately dressed and appropriately groomed Eye Contact: + fair eye contact Motor Behavior: no abnormal motor movements Speech: + loud speech (hyperverbal ) Affect: + flat affect; + mood not congruent with affect Mood: + irritable mood Thought Process: + perseveration and + concrete thought process Thought Content: + paranoid and + delusions Suicidal Thoughts: denies suicidal thoughts Homicidal Thoughts: denies homicidal thoughts Hallucinations: + auditory hallucinations (seems to be responding to internal stimuli); no visual hallucinations Cognition: attention grossly intact and language grossly intact; + recent memory not intact Estimated Intelligence: consistent with education level Insight: + limited insight Judgement: + limited judgement Vital Signs (Past 24 Hours) Last Vital Signs Temp 36.9 C 02/14/22 21:17 Pulse 95 H 02/14/22 06:00 Resp 18 02/14/22 06:00 BP 138/86 02/14/22 06:00 Pulse Ox 96 02/14/22 06:00 O2 Del Method 02/14/22 06:00 Results & Data ([facility]) Laboratory Results Laboratory Results - last 24 hr 02/15/22 06:47 Sodium 141 Potassium 3.6 Chloride 107 Carbon Dioxide 27 Anion Gap 7 BUN 25 H Creatinine 1.00 Est Cr Clr Drug Dosing Not Reportable Est GFR ( Amer) 69.4 Est GFR (Non-Af Amer) 59.9 BUN/Creatinine Ratio 25.0 H Glucose 93 Calcium 7.9 L Total Bilirubin 0.4 AST 22 ALT 25 Alkaline Phosphatase 111 H Total Protein 6.2 Albumin 3.4 Globulin 2.8 Albumin/Globulin Ratio 1.2 Triglycerides 220 H Cholesterol 168 LDL Cholesterol, Calc 77 VLDL Cholesterol, Calc 44 H HDL Cholesterol 47 Cholesterol/HDL Ratio 3.6 Current Inpatient Medications Current Inpatient Medications: Current Inpatient Medications Acetaminophen (Acetaminophen 325 Mg Tab) 650 mg PO Q4H PRN PRN Reason: Headache or Minor Fever Stop: 03/14/22 11:06 Al Hydrox/Mg Hydrox/Simethicone (Aluminum/Magnesium Susp 30 Ml Udc) 30 ml PO Q4H PRN PRN Reason: GI Upset Stop: 03/14/22 11:06 Benztropine Mesylate (Benztropine Mesylate 0.5 Mg Tab) 0.5 mg PO Q6 PRN PRN Reason: Muscle Spasm Stop: 03/14/22 14:13 Bismuth Subsalicylate (Bismuth Subsalicylate Liqd 236 Ml) 15 ml PO PRN PRN PRN Reason: Loose Stool Stop: 03/14/22 11:06 Haloperidol (Haloperidol 5 Mg Tab) 5 mg PO Q6 PRN PRN Reason: Anxiety/Agitation Stop: 03/14/22 14:13 Haloperidol (Haloperidol 5 Mg Tab) 5 mg PO BID [facility] Stop: 03/17/22 20:59 Hydroxyzine HCl (Hydroxyzine Hcl 25 Mg Tab) 50 mg PO HSZ PRN PRN Reason: Insomnia Stop: 03/14/22 11:06 Hydroxyzine HCl (Hydroxyzine Hcl 25 Mg Tab) 25 mg PO Q4H PRN PRN Reason: Anxiety Stop: 03/14/22 11:06 Lorazepam (Lorazepam 0.5 Mg Tab) 0.5 mg PO Q6 PRN PRN Reason: Anxiety Stop: 03/14/22 14:13 Magnesium Hydroxide (Magnesium Hydroxide Susp 30 Ml Udc) 30 ml PO DAILY PRN PRN Reason: Constipation Stop: 03/14/22 11:06 Potassium Chloride (Potassium Chloride Crtab 20 Meq Tabcr) 20 meq PO TID PAM Stop: 03/17/22 08:59 Last Admin: 02/15/22 14:08 Dose: 20 meq Sodium Chloride (Sodium Chloride 0.65% Na Soln 45 Ml ([place])) 1 - 2 sprays NA PRN PRN PRN Reason: Nasal Dryness/Congestion Stop: 03/14/22 11:06
[2022-02-15] MEDS: haloperidoL 5 MG TAB PO SCH (20:39)
[2022-02-16] MEDS: haloperidoL 5 MG TAB PO SCH ×2 (08:03→20:21)
[2022-02-16] MEDS: POTASSIUM CHLORIDE CRTAB 20 MEQ TABCR PO SCH ×3 (08:04→20:22)
--- NOTE | 2022-02-16 12:19 | Psychiatric Progress Note ---
Date of Service February 16, 2022 Impression / Recommendations Impression 61 yo female with a hx of schizophrenia/schizoaffective do, admitted medically for ABHISHEK and hypokalemia in the setting of poor self care during a period of noncompliance with Haldol. She was unable to complete work up on med floor to rule out vascular event as part of possible cognitive decline due to paranoia, no prior dx of dementia so proceeded with 302 given lack of community resources around holiday and hope that she would agree to resume antipsychotic medication. Diagnostically seems consistent with episode of latisha and psychosis due to schizoaffective disorder. MNPR due to severe paranoia and psychosis 02/16/22: still with psychosis but improving a bit with additional of haldol. Still with very poor sleep. Participating in hearing this afternoon for consideration to conversion to 303 commitment given concerns about ability to attend to self-care needs to due to ongoing psychosis. (1) Schizophrenia: (2) Hypokalemia: Plan 02/16/22: Continue with haldol 5mg BID. Goal for haldol decanoate if she agrees given history of non-adherence. 02/15/22: Stop seroquel. Start haldol 5mg BID. 02/14/22: Start seroquel 25mg qhs. Attempt fasting lipid panel and CMP tomorrow morning. 02/13/22: CM has communicated with OOA who would like to seek emergency guardianship. 02/12/22: The patient was admitted to the [facility] ([facility] mental health unit) on q15 min checks (behavioral with suicide precautions) for safety. The patient will participate in group, recreational, and milieu therapies and will be offered additional individual and family sessions as clinically appropriate. will offer prn Haldol. would benefit from ARANGO. Currently refusing meds but taking potassium repletion with much encouragement. Inventory Assets Strengths: hospitalizations far apart, already known to office of aging Needs: resume outpatient services, antipsychotic medication Suicide Risk Level Suicide Risk Level: Low (q15 min observation checks) (paranoia and psychosis but no statements of depression nor SI, comes to nurses with needs) Risk Factors Assessment : No Health Problems: No Mental Health Diagnoses: Yes Substance Use Disorders: No Previous Attempt: No Previous Psychiatric Hospitalization: Yes Protective Factors Assessment : No Supportive Family: Yes Interval History Identifying Information 61 yo female with a history of schizophrenia/schizoaffective dx, lives alone in [facility], was admitted on02/12/22 12:24 on a 302 involuntary commitment for inability to care for self due to paranoia and disorganization. She was initially admitted to the medical floor on 02/08/22 for treatment of hypokalemia. Chief Complaint "I'm ok thank you". Review of Systems Sleep Information Total Hours of Sleep: 3 Sleep Comments: Awake frequently; heard responding to internal stimuli in room Meal Information Percent Meal Consumed - Breakfast: 100 Percent Meal Consumed - Lunch: 100 Percent Meal Consumed - Dinner: 100 Subjective Subjective Patient was seen & assessed and interval progress reviewed with treatment team nursing and social work. Slept a bit more yesterday afternoon with a nap and then 3 hours overnight. Not responding as much to internal stimuli since starting haldol. Took haldol last evening and again this morning. Denies any side effects from this. Slightly less isolative to her room but spends the sathya rity of the day in her room except for meals. Reviewed 303 hearing that I will be participating in, she feels that she was talking in her room because "they were using one of those police monitors that moves around and listens in". Said her house was in disarray because "other people trashed it" and that "Dr. Veliz told me not to pick anything up so I didn't and it just piled up". Physical Exam Psychiatric Orientation: alert, oriented to person and oriented to place Apperance: appropriately dressed and appropriately groomed Eye Contact: good eye contact Motor Behavior: no abnormal motor movements Speech: + loud speech (more normal rate today) Affect: + flat affect; + mood not congruent with affect Mood: + anxious mood Thought Process: + circumstantial thought process and + concrete thought process Thought Content: + paranoid and + delusions Suicidal Thoughts: denies suicidal thoughts Homicidal Thoughts: denies homicidal thoughts Hallucinations: + auditory hallucinations (seems to be responding to internal stimuli); no visual hallucinations Cognition: attention grossly intact and language grossly intact; + recent memory not intact Estimated Intelligence: consistent with education level Insight: + limited insight Judgement: + limited judgement Vital Signs (Past 24 Hours) Last Vital Signs Temp 36.2 C L 02/15/22 20:00 Pulse 95 H 02/14/22 06:00 Resp 18 02/14/22 06:00 BP 138/86 02/14/22 06:00 Pulse Ox 96 02/14/22 06:00 O2 Del Method 02/14/22 06:00 Results & Data ([facility]) Current Inpatient Medications Current Inpatient Medications: Current Inpatient Medications Acetaminophen (Acetaminophen 325 Mg Tab) 650 mg PO Q4H PRN PRN Reason: Headache or Minor Fever Stop: 03/14/22 11:06 Al Hydrox/Mg Hydrox/Simethicone (Aluminum/Magnesium Susp 30 Ml Udc) 30 ml PO Q4H PRN PRN Reason: GI Upset Stop: 03/14/22 11:06 Benztropine Mesylate (Benztropine Mesylate 0.5 Mg Tab) 0.5 mg PO Q6 PRN PRN Reason: Muscle Spasm Stop: 03/14/22 14:13 Bismuth Subsalicylate (Bismuth Subsalicylate Liqd 236 Ml) 15 ml PO PRN PRN PRN Reason: Loose Stool Stop: 03/14/22 11:06 Haloperidol (Haloperidol 5 Mg Tab) 5 mg PO Q6 PRN PRN Reason: Anxiety/Agitation Stop: 03/14/22 14:13 Haloperidol (Haloperidol 5 Mg Tab) 5 mg PO BID PAM Stop: 03/17/22 20:59 Last Admin: 02/16/22 08:03 Dose: 5 mg Hydroxyzine HCl (Hydroxyzine Hcl 25 Mg Tab) 50 mg PO HSZ PRN PRN Reason: Insomnia Stop: 03/14/22 11:06 Hydroxyzine HCl (Hydroxyzine Hcl 25 Mg Tab) 25 mg PO Q4H PRN PRN Reason: Anxiety Stop: 03/14/22 11:06 Lorazepam (Lorazepam 0.5 Mg Tab) 0.5 mg PO Q6 PRN PRN Reason: Anxiety Stop: 03/14/22 14:13 Magnesium Hydroxide (Magnesium Hydroxide Susp 30 Ml Udc) 30 ml PO DAILY PRN PRN Reason: Constipation Stop: 03/14/22 11:06 Potassium Chloride (Potassium Chloride Crtab 20 Meq Tabcr) 20 meq PO TID PAM Stop: 03/17/22 08:59 Last Admin: 02/16/22 08:04 Dose: 20 meq Sodium Chloride (Sodium Chloride 0.65% Na Soln 45 Ml ([place])) 1 - 2 sprays NA PRN PRN PRN Reason: Nasal Dryness/Congestion Stop: 03/14/22 11:06
--- NOTE | 2022-02-17 08:44 | Psychiatric Progress Note ---
Date of Service February 17, 2022 Impression / Recommendations Impression 61 yo female with a hx of schizophrenia/schizoaffective do, admitted medically for ABHISHEK and hypokalemia in the setting of poor self care during a period of noncompliance with Haldol. She was unable to complete work up on med floor to rule out vascular event as part of possible cognitive decline due to paranoia, no prior dx of dementia so proceeded with 302 given lack of community resources around holiday and hope that she would agree to resume antipsychotic medication. Diagnostically seems consistent with episode of latisha and psychosis due to schizoaffective disorder. 303 commitment granted on 02/16/2022. MNPR due to severe paranoia and psychosis 02/17/22: ongoing psychosis with paranoia limiting ability to engage with any type of aftercare discussions. Participated in 303 hearing yesterday and 303 c ommitment granted. She was able to tolerate medication discussion with me today. Discussed risks, benefits and alternatives. She consented to continuing and increasing the dose of haldol for schizophrenia and starting clonidine for HTN. Reviewed side effects including but not limited to: movement (TD, NMS), cardiac (QTc prolongation), and metabolic (stroke, insulin resistance) and necessity for routine fasting lipid and glucose labwork and AIMS done with score of 0. (1) Schizophrenia: (2) Hypokalemia: Plan 02/17/22: Increase haldol to 5mg qAM & 10mg qhs (previous outpt dose). Start clonidine 0.1mg BID for HTN (she reports this was used in past for HTN). 02/16/22: Continue with haldol 5mg BID. Goal for haldol decanoate if she agrees given history of non-adherence. 02/15/22: Stop seroquel. Start haldol 5mg BID. 02/14/22: Start seroquel 25mg qhs. Attempt fasting lipid panel and CMP tomorrow morning. 02/13/22: JERICA has communicated with [facility] who would like to seek emergency guardianship. 02/12/22: The patient was admitted to the [facility] ([facility] mental health unit) on q15 min checks (behavioral with suicide precautions) for safety. The patient will participate in group, recreational, and milieu therapies and will be offered additional individual and family sessions as clinically appropriate. will offer prn Haldol. would benefit from ARANGO. Currently refusing meds but taking potassium repletion with much encouragement. Inventory Assets Strengths: hospitalizations far apart, already known to office of aging Needs: resume outpatient services, antipsychotic medication Suicide Risk Level Suicide Risk Level: Low (q15 min observation checks) (paranoia and psychosis but no statements of depression nor SI, comes to nurses with needs) Risk Factors Assessment : No Health Problems: No Mental Health Diagnoses: Yes Substance Use Disorders: No Previous Attempt: No Previous Psychiatric Hospitalization: Yes Protective Factors Assessment : No Supportive Family: Yes Interval History Identifying Information 61 yo female with a history of schizophrenia/schizoaffective dx, lives alone in [facility], was admitted on02/12/22 12:24 on a 302 involuntary commitment for inability to care for self due to paranoia and disorganization. She was initially admitted to the medical floor on 02/08/22 for treatment of hypokalemia. Chief Complaint "I'm alright thanks". Review of Systems Sleep Information Total Hours of Sleep: 4.5 Sleep Comments: Responding to internal stimuli in room Meal Information Percent Meal Consumed - Breakfast: 100 Percent Meal Consumed - Lunch: 80 Percent Meal Consumed - Dinner: 100 Nutrition Comment: pt. had a large meal ordered and ate 80%; leftovers were dated, labeled and refrigerated. Subjective Subjective Patient was seen & assessed and interval progress reviewed with treatment team nursing and social work. Fewer loud responses to internal stimuli overnight. Still refusing all groups, isolative to room but spending a bit more time in the main room watching TV at times. Minimally interactive with peers. Unable to tolerate a discussion with social work to attempt to have her sign ROIs to involve case management and/or supports. Did change her shirt for the first time this morning but still refusing to shower. Physical Exam Psychiatric Orientation: alert, oriented to person and oriented to place Apperance: appropriately dressed and appropriately groomed Eye Contact: good eye contact Motor Behavior: no abnormal motor movements Speech: + loud speech (more normal rate today) Affect: + flat affect Mood: + anxious mood and + irritable mood Thought Process: + circumstantial thought process and + concrete thought process Thought Content: + paranoid and + delusions Suicidal Thoughts: denies suicidal thoughts Homicidal Thoughts: denies homicidal thoughts Hallucinations: + auditory hallucinations (especially at night or when in her room alone); no visual hallucinations Cognition: attention grossly intact and language grossly intact; + recent memory not intact Estimated Intelligence: consistent with education level Insight: + limited insight Judgement: + limited judgement Vital Signs (Past 24 Hours) Last Vital Signs Temp 36.9 C 02/17/22 06:27 Pulse 113 H 02/17/22 06:31 Resp 18 02/17/22 06:31 BP 170/91 H 02/17/22 06:31 Pulse Ox 96 02/14/22 06:00 O2 Del Method 02/14/22 06:00 Results & Data ([facility]) Current Inpatient Medications Current Inpatient Medications: Current Inpatient Medications Acetaminophen (Acetaminophen 325 Mg Tab) 650 mg PO Q4H PRN PRN Reason: Headache or Minor Fever Stop: 03/14/22 11:06 Al Hydrox/Mg Hydrox/Simethicone (Aluminum/Magnesium Susp 30 Ml Udc) 30 ml PO Q4H PRN PRN Reason: GI Upset Stop: 03/14/22 11:06 Benztropine Mesylate (Benztropine Mesylate 0.5 Mg Tab) 0.5 mg PO Q6 PRN PRN Reason: Muscle Spasm Stop: 03/14/22 14:13 Bismuth Subsalicylate (Bismuth Subsalicylate Liqd 236 Ml) 15 ml PO PRN PRN PRN Reason: Loose Stool Stop: 03/14/22 11:06 Haloperidol (Haloperidol 5 Mg Tab) 5 mg PO Q6 PRN PRN Reason: Anxiety/Agitation Stop: 03/14/22 14:13 Haloperidol (Haloperidol 5 Mg Tab) 5 mg PO BID PAM Stop: 03/17/22 20:59 Last Admin: 02/16/22 20:21 Dose: 5 mg Hydroxyzine HCl (Hydroxyzine Hcl 25 Mg Tab) 50 mg PO HSZ PRN PRN Reason: Insomnia Stop: 03/14/22 11:06 Hydroxyzine HCl (Hydroxyzine Hcl 25 Mg Tab) 25 mg PO Q4H PRN PRN Reason: Anxiety Stop: 03/14/22 11:06 Lorazepam (Lorazepam 0.5 Mg Tab) 0.5 mg PO Q6 PRN PRN Reason: Anxiety Stop: 03/14/22 14:13 Last Admin: 02/17/22 06:24 Dose: 0.5 mg Magnesium Hydroxide (Magnesium Hydroxide Susp 30 Ml Udc) 30 ml PO DAILY PRN PRN Reason: Constipation Stop: 03/14/22 11:06 Potassium Chloride (Potassium Chloride Crtab 20 Meq Tabcr) 20 meq PO TID PAM Stop: 03/17/22 08:59 Last Admin: 02/16/22 20:22 Dose: 20 meq Sodium Chloride (Sodium Chloride 0.65% Na Soln 45 Ml ([place])) 1 - 2 sprays NA PRN PRN PRN Reason: Nasal Dryness/Congestion Stop: 03/14/22 11:06
[2022-02-17] MEDS: POTASSIUM CHLORIDE CRTAB 20 MEQ TABCR PO SCH ×3 (09:10→20:39)
[2022-02-17] MEDS: haloperidoL 5 MG TAB PO SCH ×2 (09:10→20:39)
[2022-02-17] MEDS: cloNIDine HCL 0.1 MG TAB PO SCH (20:40)
--- NOTE | 2022-02-18 08:45 | Psychiatric Progress Note ---
Date of Service February 18, 2022 Impression / Recommendations Impression 61 yo female with a hx of schizophrenia/schizoaffective do, admitted medically for ABHISHEK and hypokalemia in the setting of poor self care during a period of noncompliance with Haldol. She was unable to complete work up on med floor to rule out vascular event as part of possible cognitive decline due to paranoia, no prior dx of dementia so proceeded with 302 given lack of community resources around holiday and hope that she would agree to resume antipsychotic medication. Diagnostically seems consistent with episode of latisha and psychosis due to schizoaffective disorder but does seem to have some memory issues vs paranoia limiting recall. 303 commitment granted on 02/16/2022. MNPR due to severe paranoia and psychosis 02/18/22: ongoing psychosis with paranoia limiting ability to engage with any type of aftercare discussions and limiting participation in groups. Tolerating haldol without side effects. Will add amlodipine tomorrow for ongoing HTN which she agrees to. (1) Schizophrenia: (2) Hypokalemia: Plan 02/18/22: Continue with current medications and tx plan. Amlodipine added for ongoing HTN. 02/17/22: Increase haldol to 5mg qAM & 10mg qhs (previous outpt dose). Start clonidine 0.1mg BID for HTN (she reports this was used in past for HTN). 02/16/22: Continue with haldol 5mg BID. Goal for haldol decanoate if she agrees given history of non-adherence. 02/15/22: Stop seroquel. Start haldol 5mg BID. 02/14/22: Start seroquel 25mg qhs. Attempt fasting lipid panel and CMP tomorrow morning. 02/13/22: CM has communicated with [facility] who would like to seek emergency guardianship. 02/12/22: The patient was admitted to the [facility] ([facility] mental health unit) on q15 min checks (behavioral with suicide precautions) for safety. The patient will participate in group, recreational, and milieu therapies and will be offered additional individual and family sessions as clinically appropriate. will offer prn Haldol. would benefit from ARANGO. Currently refusing meds but taking potassium repletion with much encouragement. Inventory Assets Strengths: hospitalizations far apart, already known to office of aging Needs: resume outpatient services, antipsychotic medication Suicide Risk Level Suicide Risk Level: Low (q15 min observation checks) (paranoia and psychosis but no statements of depression nor SI, comes to nurses with needs) Risk Factors Assessment : No Health Problems: No Mental Health Diagnoses: Yes Substance Use Disorders: No Previous Attempt: No Previous Psychiatric Hospitalization: Yes Protective Factors Assessment : No Supportive Family: Yes Interval History Identifying Information 61 yo female with a history of schizophrenia/schizoaffective dx, lives alone in [facility], was admitted on02/12/22 12:24 on a 302 involuntary commitment for inability to care for self due to paranoia and disorganization. She was initially admitted to the medical floor on 02/08/22 for treatment of hypokalemia. Chief Complaint "I'm ok". Review of Systems Sleep Information Total Hours of Sleep: 4.5 Sleep Comments: Responding to internal stimuli in room Meal Information Percent Meal Consumed - Breakfast: 100 Percent Meal Consumed - Lunch: 100 Percent Meal Consumed - Dinner: 100 Nutrition Comment: pt. had a large meal ordered and ate 80%; leftovers were dated, labeled and refrigerated. Subjective Subjective Patient was seen & assessed and interval progress reviewed with treatment team nursing and social work. Last evening more social and attended activity group. Still with HTN. Awake in the middle of the night trying to wash towels and insisted she's been doing this the whole time she's been here and then became agitated and slammed her door. Was trying to clean her room overnight. Only slept 5 hours but broken throughout the night. This morning remains more paranoid, doesn't believe she is at [facility] and more suspicious of her medication. Denies any RODRIGUEZ, vision changes, CP associated with high blood pressure. Denies any side effects from haldol. Physical Exam Psychiatric Orientation: alert, oriented to person and oriented to place Apperance: appropriately dressed and appropriately groomed Eye Contact: good eye contact Motor Behavior: no abnormal motor movements Speech: + loud speech (more normal rate today) Affect: + flat affect Mood: + anxious mood and + irritable mood Thought Process: + circumstantial thought process and + concrete thought process Thought Content: + paranoid and + delusions Suicidal Thoughts: denies suicidal thoughts Homicidal Thoughts: denies homicidal thoughts Hallucinations: + auditory hallucinations (especially at night or when in her room alone); no visual hallucinations Cognition: attention grossly intact and language grossly intact; + recent memory not intact Estimated Intelligence: consistent with education level Insight: + limited insight Judgement: + limited judgement Vital Signs (Past 24 Hours) Last Vital Signs Temp 37.1 C 02/18/22 06:20 Pulse 116 H 02/18/22 06:20 Resp 18 02/18/22 06:20 BP 179/98 H 02/18/22 06:20 Pulse Ox 96 02/14/22 06:00 O2 Del Method 02/14/22 06:00 Results & Data ([facility]) Current Inpatient Medications Current Inpatient Medications: Current Inpatient Medications Acetaminophen (Acetaminophen 325 Mg Tab) 650 mg PO Q4H PRN PRN Reason: Headache or Minor Fever Stop: 03/14/22 11:06 Al Hydrox/Mg Hydrox/Simethicone (Aluminum/Magnesium Susp 30 Ml Udc) 30 ml PO Q4H PRN PRN Reason: GI Upset Stop: 03/14/22 11:06 Benztropine Mesylate (Benztropine Mesylate 0.5 Mg Tab) 0.5 mg PO Q6 PRN PRN Reason: Muscle Spasm Stop: 03/14/22 14:13 Bismuth Subsalicylate (Bismuth Subsalicylate Liqd 236 Ml) 15 ml PO PRN PRN PRN Reason: Loose Stool Stop: 03/14/22 11:06 Clonidine HCl (Clonidine Hcl 0.1 Mg Tab) 0.1 mg PO BID PAM Stop: 03/19/22 20:59 Last Admin: 02/17/22 20:40 Dose: 0.1 mg Haloperidol (Haloperidol 5 Mg Tab) 5 mg PO Q6 PRN PRN Reason: Anxiety/Agitation Stop: 03/14/22 14:13 Haloperidol (Haloperidol 5 Mg Tab) 5 mg PO QAM PAM Stop: 03/20/22 08:59 Haloperidol (Haloperidol 5 Mg Tab) 10 mg PO HS PAM Stop: 03/19/22 21:59 Last Admin: 02/17/22 20:39 Dose: 10 mg Hydroxyzine HCl (Hydroxyzine Hcl 25 Mg Tab) 50 mg PO HSZ PRN PRN Reason: Insomnia Stop: 03/14/22 11:06 Hydroxyzine HCl (Hydroxyzine Hcl 25 Mg Tab) 25 mg PO Q4H PRN PRN Reason: Anxiety Stop: 03/14/22 11:06 Lorazepam (Lorazepam 0.5 Mg Tab) 0.5 mg PO Q6 PRN PRN Reason: Anxiety Stop: 03/14/22 14:13 Last Admin: 02/17/22 06:24 Dose: 0.5 mg Magnesium Hydroxide (Magnesium Hydroxide Susp 30 Ml Udc) 30 ml PO DAILY PRN PRN Reason: Constipation Stop: 03/14/22 11:06 Potassium Chloride (Potassium Chloride Crtab 20 Meq Tabcr) 20 meq PO TID PAM Stop: 03/17/22 08:59 Last Admin: 02/17/22 20:39 Dose: 20 meq Sodium Chloride (Sodium Chloride 0.65% Na Soln 45 Ml ([place])) 1 - 2 sprays NA PRN PRN PRN Reason: Nasal Dryness/Congestion Stop: 03/14/22 11:06
[2022-02-18] MEDS: POTASSIUM CHLORIDE CRTAB 20 MEQ TABCR PO SCH ×3 (08:54→20:35)
[2022-02-18] MEDS: cloNIDine HCL 0.1 MG TAB PO SCH ×2 (08:55→20:35)
[2022-02-18] MEDS: haloperidoL 5 MG TAB PO SCH ×2 (08:55→20:34)
[2022-02-19] MEDS: haloperidoL 5 MG TAB PO SCH ×2 (08:50→21:04)
[2022-02-19] MEDS: amLODIPine BESYLATE 5 MG TAB PO SCH (08:51)
[2022-02-19] MEDS: POTASSIUM CHLORIDE CRTAB 20 MEQ TABCR PO SCH ×3 (08:51→21:04)
[2022-02-19] MEDS: cloNIDine HCL 0.1 MG TAB PO SCH ×2 (08:51→21:03)
--- NOTE | 2022-02-19 09:40 | Psychiatric Progress Note ---
Date of Service February 19, 2022 Impression / Recommendations Impression 61 yo female with a hx of schizophrenia/schizoaffective do, admitted medically for ABHISHEK and hypokalemia in the setting of poor self care during a period of noncompliance with Haldol. She was unable to complete work up on med floor to rule out vascular event as part of possible cognitive decline due to paranoia, no prior dx of dementia so proceeded with 302 given lack of community resources around holiday and hope that she would agree to resume antipsychotic medication. Diagnostically seems consistent with episode of latisha and psychosis due to schizoaffective disorder but does seem to have some memory issues vs paranoia limiting recall. 303 commitment granted on 02/16/2022. MNPR due to severe paranoia and psychosis 02/19/22: ongoing psychosis with paranoia and delusions limiting ability to engage with any type of aftercare discussions and limiting participation in groups. Tolerating haldol without side effects. Still with elevated BP. Will recheck K+ tomorrow since she is eating normally but still on supplementation. (1) Schizophrenia: (2) Hypokalemia: Plan 02/19/22: Continue with current medications and tx plan. Add trazodone 50mg qhs prn for insomnia. Check BMP tomorrow. 02/18/22: Continue with current medications and tx plan. Amlodipine added for ongoing HTN. 02/17/22: Increase haldol to 5mg qAM & 10mg qhs (previous outpt dose). Start clonidine 0.1mg BID for HTN (she reports this was used in past for HTN). 02/16/22: Continue with haldol 5mg BID. Goal for haldol decanoate if she agrees given history of non-adherence. 02/15/22: Stop seroquel. Start haldol 5mg BID. 02/14/22: Start seroquel 25mg qhs. Attempt fasting lipid panel and CMP tomorrow morning. 02/13/22: JERICA has communicated with [facility] who would like to seek emergency guardianship. 02/12/22: The patient was admitted to the [facility] ([facility]) on q15 min checks (behavioral with suicide precautions) for safety. The patient will participate in group, recreational, and milieu therapies and will be offered additional individual and family sessions as clinically appropriate. will offer prn Haldol. would benefit from ARANGO. Currently refusing meds but taking potassium repletion with much encouragement. Inventory Assets Strengths: hospitalizations far apart, already known to office of aging Needs: resume outpatient services, antipsychotic medication Suicide Risk Level Suicide Risk Level: Low (q15 min observation checks) (paranoia and psychosis but no statements of depression nor SI, comes to nurses with needs) Risk Factors Assessment : No Health Problems: No Mental Health Diagnoses: Yes Substance Use Disorders: No Previous Attempt: No Previous Psychiatric Hospitalization: Yes Protective Factors Assessment : No Supportive Family: Yes Interval History Identifying Information 61 yo female with a history of schizophrenia/schizoaffective dx, lives alone in [facility] [place], was admitted on02/12/22 12:24 on a 302 involuntary commitment for inability to care for self due to paranoia and disorganization. She was initiall y admitted to the medical floor on 02/08/22 for treatment of hypokalemia. Chief Complaint "The police are going to live me, I set it up awhile ago". Review of Systems Sleep Information Total Hours of Sleep: 4.5 Sleep Comments: Meal Information Percent Meal Consumed - Breakfast: 100 Percent Meal Consumed - Lunch: 100 Percent Meal Consumed - Dinner: 100 Nutrition Comment: pt. had a large meal ordered and ate 80%; leftovers were dated, labeled and refrigerated. Subjective Subjective Patient was seen & assessed and interval progress reviewed with treatment team nursing and social work. Remains isolative to her room except for meals or watching TV. Declines all groups. Remains suspicious, will not involve her family or sign any ROIs. Denies any medication side effects. Tells me she will live with the police when she returns home so I don't need to worry about her. Says she has lots of space and the police need somewhere to live so she discussed it with them awhile ago. Continues to not sleep well but she feels she is sleeping enough. Changing clothes. Eating. Physical Exam Psychiatric Orientation: alert, oriented to person and oriented to place Apperance: appropriately dressed and appropriately groomed Eye Contact: good eye contact Motor Behavior: no abnormal motor movements Speech: + loud speech (more normal rate today) Affect: + flat affect Mood: + irritable mood Thought Process: + circumstantial thought process and + concrete thought process Thought Content: + paranoid and + delusions Suicidal Thoughts: denies suicidal thoughts Homicidal Thoughts: denies homicidal thoughts Hallucinations: + auditory hallucinations (lessening, sometimes more at night or when in her room alone); no visual hallucinations Cognition: attention grossly intact and language grossly intact; + recent memory not intact Estimated Intelligence: consistent with education level Insight: + limited insight Judgement: + limited judgement Vital Signs (Past 24 Hours) Last Vital Signs Temp 36.9 C 02/19/22 06:33 Pulse 112 H 02/19/22 06:33 Resp 20 02/19/22 06:33 BP 177/123 H 02/19/22 06:33 Pulse Ox 96 02/14/22 06:00 O2 Del Method 02/14/22 06:00 Results & Data ([facility] [place]) Current Inpatient Medications Current Inpatient Medications: Current Inpatient Medications Acetaminophen (Acetaminophen 325 Mg Tab) 650 mg PO Q4H PRN PRN Reason: Headache or Minor Fever Stop: 03/14/22 11:06 Al Hydrox/Mg Hydrox/Simethicone (Aluminum/Magnesium Susp 30 Ml Udc) 30 ml PO Q4H PRN PRN Reason: GI Upset Stop: 03/14/22 11:06 Amlodipine Besylate (Amlodipine Besylate 5 Mg Tab) 5 mg PO QAM [facility] Stop: 03/21/22 08:59 Last Admin: 02/19/22 08:51 Dose: 5 mg Benztropine Mesylate (Benztropine Mesylate 0.5 Mg Tab) 0.5 mg PO Q6 PRN PRN Reason: Muscle Spasm Stop: 03/14/22 14:13 Bismuth Subsalicylate (Bismuth Subsalicylate Liqd 236 Ml) 15 ml PO PRN PRN PRN Reason: Loose Stool Stop: 03/14/22 11:06 Clonidine HCl (Clonidine Hcl 0.1 Mg Tab) 0.1 mg PO BID [facility] Stop: 03/19/22 20:59 Last Admin: 02/19/22 08:51 Dose: 0.1 mg Haloperidol (Haloperidol 5 Mg Tab) 5 mg PO Q6 PRN PRN Reason: Anxiety/Agitation Stop: 03/14/22 14:13 Haloperidol (Haloperidol 5 Mg Tab) 5 mg PO QAM [facility] Stop: 03/20/22 08:59 Last Admin: 02/19/22 08:50 Dose: 5 mg Haloperidol (Haloperidol 5 Mg Tab) 10 mg PO HS PAM Stop: 03/19/22 21:59 Last Admin: 02/18/22 20:34 Dose: 10 mg Hydroxyzine HCl (Hydroxyzine Hcl 25 Mg Tab) 50 mg PO HSZ PRN PRN Reason: Insomnia Stop: 03/14/22 11:06 Hydroxyzine HCl (Hydroxyzine Hcl 25 Mg Tab) 25 mg PO Q4H PRN PRN Reason: Anxiety Stop: 03/14/22 11:06 Lorazepam (Lorazepam 0.5 Mg Tab) 0.5 mg PO Q6 PRN PRN Reason: Anxiety Stop: 03/14/22 14:13 Last Admin: 02/17/22 06:24 Dose: 0.5 mg Magnesium Hydroxide (Magnesium Hydroxide Susp 30 Ml Udc) 30 ml PO DAILY PRN PRN Reason: Constipation Stop: 03/14/22 11:06 Potassium Chloride (Potassium Chloride Crtab 20 Meq Tabcr) 20 meq PO TID PAM Stop: 03/17/22 08:59 Last Admin: 02/19/22 08:51 Dose: 20 meq Sodium Chloride (Sodium Chloride 0.65% Na Soln 45 Ml ([place])) 1 - 2 sprays NA PRN PRN PRN Reason: Nasal Dryness/Congestion Stop: 03/14/22 11:06
[2022-02-19] MEDS ORDERED: traZODone HCL 50 MG TAB PO PRN (16:56)
[2022-02-20] MEDS: ACETAMINOPHEN 325 MG TAB PO PRN (07:41)
[2022-02-20 08:08] LABS: Anion Gap 7 (3-11); BUN Creatinine Ratio 24.7 (10-20); Blood Urea Nitrogen 21 mg/dl (6-23); Calcium 8.3 mg/dl (8.5-10.1); Carbon Dioxide 26 mmol/L (21-32); Chloride 108 mmol/L (98-107); Est GFR (African American) 84.5 ml/min; Est GFR (Non-African American) 72.9 ml/min; Glucose 94 mg/dl (70-99(Fasting)); Potassium 3.9 mmol/L (3.5-5.1); Sodium 141 mmol/L (136-145)
[2022-02-20] MEDS: cloNIDine HCL 0.1 MG TAB PO SCH ×2 (09:05→20:26)
[2022-02-20] MEDS: haloperidoL 5 MG TAB PO SCH ×2 (09:05→20:26)
[2022-02-20] MEDS: amLODIPine BESYLATE 5 MG TAB PO SCH (09:05)
[2022-02-20] MEDS: POTASSIUM CHLORIDE CRTAB 20 MEQ TABCR PO SCH ×2 (09:05→20:26)
--- NOTE | 2022-02-20 13:48 | Psychiatric Progress Note ---
Date of Service February 20, 2022 Impression / Recommendations Impression 61 yo female with a hx of schizophrenia/schizoaffective do, admitted medically for ABHISHEK and hypokalemia in the setting of poor self care during a period of noncompliance with Haldol. She was unable to complete work up on med floor to rule out vascular event as part of possible cognitive decline due to paranoia, no prior dx of dementia so proceeded with 302 given lack of community resources around holiday and hope that she would agree to resume antipsychotic medication. Diagnostically seems consistent with episode of latisha and psychosis due to schizoaffective disorder but does seem to have some memory issues vs paranoia limiting recall. 303 commitment granted on 02/16/2022. MNPR due to severe paranoia and psychosis 02/20/22: ongoing psychosis with paranoia and delusions limiting ability to engage with any type of aftercare discussions and limiting participation in groups. Tolerating haldol without side effects. K+ stable and trending up, given improved nutrition will reduce K+ supplementation to BID. (1) Schizophrenia: (2) Hypokalemia: Plan 02/20/22: Continue with current medications and tx plan. 02/19/22: Continue with current medications and tx plan. Add trazodone 50mg qhs prn for insomnia. Check BMP tomorrow. 02/18/22: Continue with current medications and tx plan. Amlodipine added for ongoing HTN. 02/17/22: Increase haldol to 5mg qAM & 10mg qhs (previous outpt dose). Start clonidine 0.1mg BID for HTN (she reports this was used in past for HTN). 02/16/22: Continue with haldol 5mg BID. Goal for haldol decanoate if she agrees given history of non-adherence. 02/15/22: Stop seroquel. Start haldol 5mg BID. 02/14/22: Start seroquel 25mg qhs. Attempt fasting lipid panel and CMP tomorrow morning. 02/13/22: JERICA has communicated with [facility] who would like to seek emergency guardianship. 02/12/22: The patient was admitted to the [facility] ([facility]) on q15 min checks (behavioral with suicide precautions) for safety. The patient will participate in group, recreational, and milieu therapies and will be offered additional individual and family sessions as clinically appropriate. will offer prn Haldol. would benefit from ARANGO. Currently refusing meds but taking potassium repletion with much encouragement. Inventory Assets Strengths: hospitalizations far apart, already known to office of aging Needs: resume outpatient services, antipsychotic medication Suicide Risk Level Suicide Risk Level: Low (q15 min observation checks) (paranoia and psychosis but no statements of depression nor SI, comes to nurses with needs) Risk Factors Assessment : No Health Problems: No Mental Health Diagnoses: Yes Substance Use Disorders: No Previous Attempt: No Previous Psychiatric Hospitalization: Yes Protective Factors Assessment : No Supportive Family: Yes Interval History Identifying Information 61 yo female with a history of schizophrenia/schizoaffective dx, lives alone in [facility], was admitted on02/12/22 12:24 on a 302 involuntary commitment for inability to care for self due to paranoia and disorganization. She was initially admitted to the medical floor on 02/08/22 for treatment of hypokalemia. Chief Complaint "I'm alright". Review of Systems Sleep Information Total Hours of Sleep: 4.5 Sleep Comments: yelled out x1, up early Meal Information Percent Meal Consumed - Breakfast: 100 Percent Meal Consumed - Lunch: 90 Percent Meal Consumed - Dinner: 100 Nutrition Comment: pt. had a large meal ordered and ate 80%; leftovers were dated, labeled and refrigerated. Subjective Subjective Patient was seen & assessed and interval progress reviewed with treatment team nursing and social work. More irritable this morning. Paranoid about her clothes. Isolative today, lying in her this afternoon with blankets over her head in the dark. Unsure about trazodone, says she'll consider it tonight. Physical Exam Psychiatric Orientation: alert, oriented to person and oriented to place Apperance: appropriately dressed and appropriately groomed Eye Contact: good eye contact Motor Behavior: no abnormal motor movements Speech: + loud speech (more normal rate today) Affect: + flat affect Mood: + irritable mood Thought Process: + circumstantial thought process and + concrete thought process Thought Content: + paranoid and + delusions Suicidal Thoughts: denies suicidal thoughts Homicidal Thoughts: denies homicidal thoughts Hallucinations: + auditory hallucinations (lessening, sometimes more at night or when in her room alone); no visual hallucinations Cognition: attention grossly intact and language grossly intact; + recent memory not intact Estimated Intelligence: consistent with education level Insight: + limited insight Judgement: + limited judgement Vital Signs (Past 24 Hours) Last Vital Signs Temp 36.7 C 02/20/22 06:38 Pulse 112 H 02/20/22 06:38 Resp 18 02/20/22 06:38 BP 151/83 H 02/20/22 06:39 Pulse Ox 96 02/14/22 06:00 O2 Del Method 02/14/22 06:00 Results & Data ([facility]) Laboratory Results Laboratory Results - last 24 hr 02/20/22 07:40 Sodium 141 Potassium 3.9 Chloride 108 H Carbon Dioxide 26 Anion Gap 7 BUN 21 Creatinine 0.85 Est Cr Clr Drug Dosing Not Reportable Est GFR ( Amer) 84.5 Est GFR (Non-Af Amer) 72.9 BUN/Creatinine Ratio 24.7 H Glucose 94 Calcium 8.3 L Current Inpatient Medications Current Inpatient Medications: Current Inpatient Medications Acetaminophen (Acetaminophen 325 Mg Tab) 650 mg PO Q4H PRN PRN Reason: Headache or Minor Fever Stop: 03/14/22 11:06 Last Admin: 02/20/22 07:41 Dose: 650 mg Al Hydrox/Mg Hydrox/Simethicone (Aluminum/Magnesium Susp 30 Ml Udc) 30 ml PO Q4H PRN PRN Reason: GI Upset Stop: 03/14/22 11:06 Amlodipine Besylate (Amlodipine Besylate 5 Mg Tab) 5 mg PO QAM PAM Stop: 03/21/22 08:59 Last Admin: 02/20/22 09:05 Dose: 5 mg Benztropine Mesylate (Benztropine Mesylate 0.5 Mg Tab) 0.5 mg PO Q6 PRN PRN Reason: Muscle Spasm Stop: 03/14/22 14:13 Bismuth Subsalicylate (Bismuth Subsalicylate Liqd 236 Ml) 15 ml PO PRN PRN PRN Reason: Loose Stool Stop: 03/14/22 11:06 Clonidine HCl (Clonidine Hcl 0.1 Mg Tab) 0.1 mg PO BID PAM Stop: 03/19/22 20:59 Last Admin: 02/20/22 09:05 Dose: 0.1 mg Haloperidol (Haloperidol 5 Mg Tab) 5 mg PO Q6 PRN PRN Reason: Anxiety/Agitation Stop: 03/14/22 14:13 Haloperidol (Haloperidol 5 Mg Tab) 5 mg PO QAM PAM Stop: 03/20/22 08:59 Last Admin: 02/20/22 09:05 Dose: 5 mg Haloperidol (Haloperidol 5 Mg Tab) 10 mg PO HS PAM Stop: 03/19/22 21:59 Last Admin: 02/19/22 21:04 Dose: 10 mg Hydroxyzine HCl (Hydroxyzine Hcl 25 Mg Tab) 50 mg PO HSZ PRN PRN Reason: Insomnia Stop: 03/14/22 11:06 Hydroxyzine HCl (Hydroxyzine Hcl 25 Mg Tab) 25 mg PO Q4H PRN PRN Reason: Anxiety Stop: 03/14/22 11:06 Lorazepam (Lorazepam 0.5 Mg Tab) 0.5 mg PO Q6 PRN PRN Reason: Anxiety Stop: 03/14/22 14:13 Last Admin: 02/17/22 06:24 Dose: 0.5 mg Magnesium Hydroxide (Magnesium Hydroxide Susp 30 Ml Udc) 30 ml PO DAILY PRN PRN Reason: Constipation Stop: 03/14/22 11:06 Potassium Chloride (Potassium Chloride Crtab 20 Meq Tabcr) 20 meq PO BID PAM Stop: 03/22/22 08:59 Last Admin: 02/20/22 09:05 Dose: 20 meq Sodium Chloride (Sodium Chloride 0.65% Na Soln 45 Ml ([place])) 1 - 2 sprays NA PRN PRN PRN Reason: Nasal Dryness/Congestion Stop: 03/14/22 11:06 Trazodone HCl (Trazodone Hcl 50 Mg Tab) 50 mg PO HS PRN PRN Reason: Insomnia Stop: 03/21/22 21:59
[2022-02-21] MEDS: amLODIPine BESYLATE 5 MG TAB PO SCH (09:09)
[2022-02-21] MEDS: cloNIDine HCL 0.1 MG TAB PO SCH ×2 (09:10→21:18)
[2022-02-21] MEDS: POTASSIUM CHLORIDE CRTAB 20 MEQ TABCR PO SCH ×2 (09:10→21:19)
[2022-02-21] MEDS: haloperidoL 5 MG TAB PO SCH ×2 (09:10→21:18)
[2022-02-21] MEDS: ACETAMINOPHEN 325 MG TAB PO PRN (09:13)
--- NOTE | 2022-02-21 11:02 | Psychiatric Progress Note ---
Date of Service February 21, 2022 Impression / Recommendations Impression 61 yo female with a hx of schizophrenia/schizoaffective do, admitted medically for ABHISHEK and hypokalemia in the setting of poor self care during a period of noncompliance with Haldol. She was unable to complete work up on med floor to rule out vascular event as part of possible cognitive decline due to paranoia, no prior dx of dementia so proceeded with 302 given lack of community resources around holiday and hope that she would agree to resume antipsychotic medication. Diagnostically seems consistent with episode of latisha and psychosis due to schizoaffective disorder but does seem to have some memory issues vs paranoia limiting recall. 303 commitment granted on 02/16/2022. MNPR due to severe paranoia and psychosis 02/21/2022: ongoing psychosis with paranoia and delusions limiting ability to engage with any type of aftercare discussions and limiting participation in groups. Tolerating haldol without side effects. Blood pressure improving. (1) Schizophrenia: (2) Hypokalemia: Plan 02/21/2022: Continue with current medications and tx plan. 02/20/22: Continue with current medications and tx plan. 02/19/22: Continue with current medications and tx plan. Add trazodone 50mg qhs prn for insomnia. Check BMP tomorrow. 02/18/22: Continue with current medications and tx plan. Amlodipine added for ongoing HTN. 02/17/22: Increase haldol to 5mg qAM & 10mg qhs (previous outpt dose). Start clonidine 0.1mg BID for HTN (she reports this was used in past for HTN). 02/16/22: Continue with haldol 5mg BID. Goal for haldol decanoate if she agrees given history of non-adherence. 02/15/22: Stop seroquel. Start haldol 5mg BID. 02/14/22: Start seroquel 25mg qhs. Attempt fasting lipid panel and CMP tomorrow morning. 02/13/22: JERICA has communicated with [facility] who would like to seek emergency guardianship. 02/12/22: The patient was admitted to the [facility] ([facility] mental health unit) on q15 min checks (behavioral with suicide precautions) for safety. The patient will participate in group, recreational, and milieu therapies and will be offered additional individual and family sessions as clinically appropriate. will offer prn Haldol. would benefit from ARANGO. Currently refusing meds but taking potassium repletion with much encouragement. Inventory Assets Strengths: hospitalizations far apart, already known to office of aging Needs: resume outpatient services, antipsychotic medication Suicide Risk Level Suicide Risk Level: Low (q15 min observation checks) (paranoia and psychosis but no statements of depression nor SI, comes to nurses with needs) Risk Factors Assessment : No Health Problems: No Mental Health Diagnoses: Yes Substance Use Disorders: No Previous Attempt: No Previous Psychiatric Hospitalization: Yes Protective Factors Assessment : No Supportive Family: Yes Interval History Identifying Information 61 yo female with a history of schizophrenia/schizoaffective dx, lives alone in [place], was admitted on02/12/22 12:24 on a 302 involuntary commitment for inability to care for self due to paranoia and disorganization. She was initially admitted to the medical floor on 02/08/22 for treatment of hypokalemia. Chief Complaint "I'm ok". Review of Systems Sleep Information Total Hours of Sleep: 5.5 Sleep Comments: yelled out x1, up early Meal Information Percent Meal Consumed - Breakfast: 100 Percent Meal Consumed - Lunch: 100 Percent Meal Consumed - Dinner: 100 Nutrition Comment: pt. had a large meal ordered and ate 80%; leftovers were dated, labeled and refrigerated. Subjective Subjective Patient was seen & assessed and interval progress reviewed with treatment team nursing and social work. Isolative to her room yesterday for much of the day except for meals and to watch TV. Only briefly interactive with peers. Not attending any groups even with encouragement. Today lying in bed in her room in the dark. tells me she is "ok". Was unaware that it is New Years Day. Continues to decline hs trazodone. Did ask for and found tylenol helpful this morning for a headache. Denies any other physical complaints or side effects from haldol. Physical Exam Psychiatric Orientation: alert, oriented to person and oriented to place Apperance: appropriately dressed and appropriately groomed Eye Contact: good eye contact Motor Behavior: no abnormal motor movements Speech: + loud speech (more normal rate today) Affect: + flat affect Mood: + irritable mood; no anxious mood Thought Process: + circumstantial thought process and + concrete thought process Thought Content: + paranoid and + delusions Suicidal Thoughts: denies suicidal thoughts Homicidal Thoughts: denies homicidal thoughts Hallucinations: + auditory hallucinations (lessening, sometimes more at night or when in her room alone); no visual hallucinations Cognition: attention grossly intact and language grossly intact; + recent memory not intact Estimated Intelligence: consistent with education level Insight: + limited insight Judgement: + limited judgement Vital Signs (Past 24 Hours) Last Vital Signs Temp 37 C 02/21/22 06:36 Pulse 109 H 02/21/22 06:37 Resp 18 02/21/22 06:36 BP 144/94 H 02/21/22 06:37 Pulse Ox 96 02/14/22 06:00 O2 Del Method 02/14/22 06:00 Results & Data ([facility]) Current Inpatient Medications Current Inpatient Medications: Current Inpatient Medications Acetaminophen (Acetaminophen 325 Mg Tab) 650 mg PO Q4H PRN PRN Reason: Headache or Minor Fever Stop: 03/14/22 11:06 Last Admin: 02/21/22 09:13 Dose: 650 mg Al Hydrox/Mg Hydrox/Simethicone (Aluminum/Magnesium Susp 30 Ml Udc) 30 ml PO Q4H PRN PRN Reason: GI Upset Stop: 03/14/22 11:06 Amlodipine Besylate (Amlodipine Besylate 5 Mg Tab) 5 mg PO QAM [facility] Stop: 03/21/22 08:59 Last Admin: 02/21/22 09:09 Dose: 5 mg Benztropine Mesylate (Benztropine Mesylate 0.5 Mg Tab) 0.5 mg PO Q6 PRN PRN Reason: Muscle Spasm Stop: 03/14/22 14:13 Bismuth Subsalicylate (Bismuth Subsalicylate Liqd 236 Ml) 15 ml PO PRN PRN PRN Reason: Loose Stool Stop: 03/14/22 11:06 Clonidine HCl (Clonidine Hcl 0.1 Mg Tab) 0.1 mg PO BID [facility] Stop: 03/19/22 20:59 Last Admin: 02/21/22 09:10 Dose: 0.1 mg Haloperidol (Haloperidol 5 Mg Tab) 5 mg PO Q6 PRN PRN Reason: Anxiety/Agitation Stop: 03/14/22 14:13 Haloperidol (Haloperidol 5 Mg Tab) 5 mg PO QAM [facility] Stop: 03/20/22 08:59 Last Admin: 02/21/22 09:10 Dose: 5 mg Haloperidol (Haloperidol 5 Mg Tab) 10 mg PO HS PAM Stop: 03/19/22 21:59 Last Admin: 02/20/22 20:26 Dose: 10 mg Hydroxyzine HCl (Hydroxyzine Hcl 25 Mg Tab) 50 mg PO HSZ PRN PRN Reason: Insomnia Stop: 03/14/22 11:06 Hydroxyzine HCl (Hydroxyzine Hcl 25 Mg Tab) 25 mg PO Q4H PRN PRN Reason: Anxiety Stop: 03/14/22 11:06 Lorazepam (Lorazepam 0.5 Mg Tab) 0.5 mg PO Q6 PRN PRN Reason: Anxiety Stop: 03/14/22 14:13 Last Admin: 02/17/22 06:24 Dose: 0.5 mg Magnesium Hydroxide (Magnesium Hydroxide Susp 30 Ml Udc) 30 ml PO DAILY PRN PRN Reason: Constipation Stop: 03/14/22 11:06 Potassium Chloride (Potassium Chloride Crtab 20 Meq Tabcr) 20 meq PO BID PAM Stop: 03/22/22 08:59 Last Admin: 02/21/22 09:10 Dose: 20 meq Sodium Chloride (Sodium Chloride 0.65% Na Soln 45 Ml ([place])) 1 - 2 sprays NA PRN PRN PRN Reason: Nasal Dryness/Congestion Stop: 03/14/22 11:06 Trazodone HCl (Trazodone Hcl 50 Mg Tab) 50 mg PO HS PRN PRN Reason: Insomnia Stop: 03/21/22 21:59
[2022-02-22] MEDS: amLODIPine BESYLATE 5 MG TAB PO SCH (07:49)
[2022-02-22] MEDS: cloNIDine HCL 0.1 MG TAB PO SCH ×2 (07:49→20:46)
[2022-02-22] MEDS: POTASSIUM CHLORIDE CRTAB 20 MEQ TABCR PO SCH ×2 (07:49→20:47)
[2022-02-22] MEDS: haloperidoL 5 MG TAB PO SCH ×2 (07:50→20:48)
--- NOTE | 2022-02-22 12:48 | Psychiatric Progress Note ---
Date of Service February 22, 2022 Impression / Recommendations Impression 61 yo female with a hx of schizophrenia/schizoaffective do, admitted medically for ABHISHEK and hypokalemia in the setting of poor self care during a period of noncompliance with Haldol. She was unable to complete work up on med floor to rule out vascular event as part of possible cognitive decline due to paranoia, no prior dx of dementia so proceeded with 302 given lack of community resources around holiday and hope that she would agree to resume antipsychotic medication. Diagnostically seems consistent with episode of latisha and psychosis due to schizoaffective disorder but does seem to have some memory issues vs paranoia limiting recall. 303 commitment granted on 02/16/2022. MNPR due to ongoing paranoia 02/22/2022: improved from last contact but not regaining executive functioning, would be unable to continue with medications and self care outside of a structured setting. (1) Schizophrenia: (2) Hypokalemia: Plan 02/22/2022: emergency guardianship hearing as per [facility]. 02/21/2022: Continue with current medications and tx plan. 02/20/22: Continue with current medications and tx plan. 02/19/22: Continue with current medications and tx plan. Add trazodone 50mg qhs prn for insomnia. Check BMP tomorrow. 02/18/22: Continue with current medications and tx plan. Amlodipine added for ongoing HTN. 02/17/22: Increase haldol to 5mg qAM & 10mg qhs (previous outpt dose). Start clonidine 0.1mg BID for HTN (she reports this was used in past for HTN). 02/16/22: Continue with haldol 5mg BID. Goal for haldol decanoate if she agrees given history of non-adherence. 02/15/22: Stop seroquel. Start haldol 5mg BID. 02/14/22: Start seroquel 25mg qhs. Attempt fasting lipid panel and CMP tomorrow morning. 02/13/22: CM has communicated with [facility] who would like to seek emergency guardianship. 02/12/22: The patient was admitted to the [facility] ([facility]) on q15 min checks (behavioral with suicide precautions) for safety. The patient will participate in group, recreational, and milieu therapies and will be offered additional individual and family sessions as clinically appropriate. will offer prn Haldol. would benefit from ARANGO. Currently refusing meds but taking potassium repletion with much encouragement. Inventory Assets Strengths: hospitalizations far apart, already known to office of aging Needs: resume outpatient services, antipsychotic medication Suicide Risk Level Suicide Risk Level: Low (q15 min observation checks) (paranoia and psychosis but no statements of depression nor SI, comes to nurses with needs) Risk Factors Assessment : No Health Problems: No Mental Health Diagnoses: Yes Substance Use Disorders: No Previous Attempt: No Previous Psychiatric Hospitalization: Yes Protective Factors Assessment : No Supportive Family: Yes Interval History Identifying Information 61 yo female with a history of schizophrenia/schizoaffective dx, [facility], was admitted on02/12/22 12:24 on a 302 involuntary commitment for inability to care for self due to paranoia and disorganization. She was initially admitted to the medical floor on 02/08/22 for treatment of hypokalemia. On 303 commitment. Chief Complaint "I'm fine, don't know why I'm here but I'll do whatever". Review of Systems Sleep Information Total Hours of Sleep: 3 Sleep Comments: Patient awoke early and had frequent requests for staff Meal Information Percent Meal Consumed - Breakfast: 100 Percent Meal Consumed - Lunch: 100 Percent Meal Consumed - Dinner: 100 Nutrition Comment: pt. had a large meal ordered and ate 80%; leftovers were dated, labeled and refrigerated. Subjective Subjective Patient was seen & assessed and interval progress reviewed with treatment team. Patient has been compliant with PO meds. With Haldol she is no longer responding to internal stimuli but remains cognitively limited, forgetting where she is at times. Case discussed with [facility] rn case management as a potential guardian has been identified and family has made arrangements for placement. [facility] plans to seek guardianship papers. Physical Exam Psychiatric Orientation: alert Apperance: appropriately groomed Eye Contact: + fair eye contact Motor Behavior: no abnormal motor movements Speech: + abnormal rate/rhythm/volume of speech non spontaneous Affect: + constricted affect Mood: no depressed mood Thought Process: + concrete thought process Thought Content: + paranoid Suicidal Thoughts: denies suicidal thoughts Homicidal Thoughts: denies homicidal thoughts Hallucinations: no auditory hallucinations and no visual hallucinations Cognition: attention grossly intact and language grossly intact Estimated Intelligence: consistent with education level Insight: + impaired insight Vital Signs (Past 24 Hours) Last Vital Signs Temp 36.8 C 02/22/22 06:36 Pulse 106 H 02/22/22 06:36 Resp 18 02/22/22 06:36 BP 150/91 H 02/22/22 06:36 Pulse Ox 96 02/14/22 06:00 O2 Del Method 02/14/22 06:00 Results & Data ([facility]) Current Inpatient Medications Current Inpatient Medications: Current Inpatient Medications Acetaminophen (Acetaminophen 325 Mg Tab) 650 mg PO Q4H PRN PRN Reason: Headache or Minor Fever Stop: 03/14/22 11:06 Last Admin: 02/21/22 09:13 Dose: 650 mg Al Hydrox/Mg Hydrox/Simethicone (Aluminum/Magnesium Susp 30 Ml Udc) 30 ml PO Q4H PRN PRN Reason: GI Upset Stop: 03/14/22 11:06 Amlodipine Besylate (Amlodipine Besylate 5 Mg Tab) 5 mg PO QAM [facility] Stop: 03/21/22 08:59 Last Admin: 02/22/22 07:49 Dose: 5 mg Benztropine Mesylate (Benztropine Mesylate 0.5 Mg Tab) 0.5 mg PO Q6 PRN PRN Reason: Muscle Spasm Stop: 03/14/22 14:13 Bismuth Subsalicylate (Bismuth Subsalicylate Liqd 236 Ml) 15 ml PO PRN PRN PRN Reason: Loose Stool Stop: 03/14/22 11:06 Clonidine HCl (Clonidine Hcl 0.1 Mg Tab) 0.1 mg PO BID [facility] Stop: 03/19/22 20:59 Last Admin: 02/22/22 07:49 Dose: 0.1 mg Haloperidol (Haloperidol 5 Mg Tab) 5 mg PO Q6 PRN PRN Reason: Anxiety/Agitation Stop: 03/14/22 14:13 Haloperidol (Haloperidol 5 Mg Tab) 5 mg PO QAM [facility] Stop: 03/20/22 08:59 Last Admin: 02/22/22 07:50 Dose: 5 mg Haloperidol (Haloperidol 5 Mg Tab) 10 mg PO HS [facility] Stop: 03/19/22 21:59 Last Admin: 02/21/22 21:18 Dose: 10 mg Hydroxyzine HCl (Hydroxyzine Hcl 25 Mg Tab) 50 mg PO HSZ PRN PRN Reason: Insomnia Stop: 03/14/22 11:06 Hydroxyzine HCl (Hydroxyzine Hcl 25 Mg Tab) 25 mg PO Q4H PRN PRN Reason: Anxiety Stop: 03/14/22 11:06 Lorazepam (Lorazepam 0.5 Mg Tab) 0.5 mg PO Q6 PRN PRN Reason: Anxiety Stop: 03/14/22 14:13 Last Admin: 02/17/22 06:24 Dose: 0.5 mg Magnesium Hydroxide (Magnesium Hydroxide Susp 30 Ml Udc) 30 ml PO DAILY PRN PRN Reason: Constipation Stop: 03/14/22 11:06 Potassium Chloride (Potassium Chloride Crtab 20 Meq Tabcr) 20 meq PO BID PAM Stop: 03/22/22 08:59 Last Admin: 02/22/22 07:49 Dose: 20 meq Sodium Chloride (Sodium Chloride 0.65% Na Soln 45 Ml ([place])) 1 - 2 sprays NA PRN PRN PRN Reason: Nasal Dryness/Congestion Stop: 03/14/22 11:06 Trazodone HCl (Trazodone Hcl 50 Mg Tab) 50 mg PO HS PRN PRN Reason: Insomnia Stop: 03/21/22 21:59
[2022-02-22] MEDS: ACETAMINOPHEN 325 MG TAB PO PRN (19:28)
[2022-02-23] MEDS: haloperidoL 5 MG TAB PO SCH ×2 (08:13→20:58)
[2022-02-23] MEDS: cloNIDine HCL 0.1 MG TAB PO SCH ×2 (08:13→20:58)
[2022-02-23] MEDS: amLODIPine BESYLATE 5 MG TAB PO SCH (08:13)
[2022-02-23] MEDS: POTASSIUM CHLORIDE CRTAB 20 MEQ TABCR PO SCH ×2 (08:14→20:58)
--- NOTE | 2022-02-23 11:25 | Psychiatric Progress Note ---
Date of Service February 23, 2022 Impression / Recommendations Impression 61 yo female with a hx of schizophrenia/schizoaffective do, admitted medically for ABHISHEK and hypokalemia in the setting of poor self care during a period of noncompliance with Haldol. She was unable to complete work up on med floor to rule out vascular event as part of possible cognitive decline due to paranoia, no prior dx of dementia so proceeded with 302 given lack of community resources around holiday and hope that she would agree to resume antipsychotic medication. Diagnostically seems consistent with episode of latisha and psychosis due to schizoaffective disorder but does seem to have some memory issues vs paranoia limiting recall. 303 commitment granted on 02/16/2022. MNPR due to ongoing paranoia 02/23/2022: maintaining improvement on Haldol, in need of guardianship/cannot return home. (1) Schizophrenia: (2) Hypokalemia: Plan 02/23/2022: completed emergency guardianship request/expert form for [facility]. 02/22/2022: emergency guardianship hearing as per O. 02/21/2022: Continue with current medications and tx plan. 02/20/22: Continue with current medications and tx plan. 02/19/22: Continue with current medications and tx plan. Add trazodone 50mg qhs prn for insomnia. Check BMP tomorrow. 02/18/22: Continue with current medications and tx plan. Amlodipine added for ongoing HTN. 02/17/22: Increase haldol to 5mg qAM & 10mg qhs (previous outpt dose). Start clonidine 0.1mg BID for HTN (she reports this was used in past for HTN). 02/16/22: Continue with haldol 5mg BID. Goal for haldol decanoate if she agrees given history of non-adherence. 02/15/22: Stop seroquel. Start haldol 5mg BID. 02/14/22: Start seroquel 25mg qhs. Attempt fasting lipid panel and CMP tomorrow morning. 02/13/22: has communicated with [facility] who would like to seek emergency guardianship. 02/12/22: The patient [facility]) on q15 min checks (behavioral with suicide precautions) for safety. The patient will participate in group, recreational, and milieu therapies and will be offered additional individual and family sessions as clinically appropriate. will offer prn Haldol. would benefit from ARANGO. Currently refusing meds but taking potassium repletion with much encouragement. Inventory Assets Strengths: hospitalizations far apart, already known to office of aging Needs: resume outpatient services, antipsychotic medication Suicide Risk Level Suicide Risk Level: Low (q15 min observation checks) (paranoia and psychosis but no statements of depression nor SI, comes to nurses with needs) Risk Factors Assessment : No Health Problems: No Mental Health Diagnoses: Yes Substance Use Disorders: No Previous Attempt: No Previous Psychiatric Hospitalization: Yes Protective Factors Assessment : No Supportive Family: Yes Interval History Identifying Information 61 yo female with a history of schizophrenia/schizoaffective dx, lives alone in [facility], was admitted on02/12/22 12:24 on a 302 involuntary commitment for inability to care for self due to paranoia and disorganization. She was initially admitted to the medical floor on 02/08/22 for treatment of hypokalemia. On 303 commitment. Chief Complaint "I'm feeling good today." Review of Systems Sleep Information Total Hours of Sleep: 5.5 Meal Information Percent Meal Consumed - Breakfast: 100 Percent Meal Consumed - Lunch: 100 Percent Meal Consumed - Dinner: 100 Subjective Subjective Patient was seen & assessed and interval progress reviewed with nursing and social work. Has been somewhat brighter in interactions in the [facility]. Rates mood as 5/10 but did not attend self-awareness group. She is med compliant with no apparent EPS from Haldol. Physical Exam Psychiatric Orientation: alert Apperance: appropriately dressed and appropriately groomed Eye Contact: + fair eye contact Motor Behavior: no abnormal motor movements Speech: + loud speech Affect: euthymic affect Mood: no depressed mood Thought Process: + concrete thought process Thought Content: + paranoid Suicidal Thoughts: denies suicidal thoughts Homicidal Thoughts: denies homicidal thoughts Hallucinations: no auditory hallucinations and no visual hallucinations Cognition: language grossly intact Estimated Intelligence: + below average estimated intelligence Insight: + impaired insight Judgement: + impaired judgement Vital Signs (Past 24 Hours) Last Vital Signs Temp 36.3 C L 02/23/22 06:00 Pulse 90 02/23/22 06:36 Resp 16 02/23/22 06:00 BP 153/84 H 02/23/22 06:36 Pulse Ox 96 02/14/22 06:00 O2 Del Method 02/23/22 06:00 Results & Data ([facility]) Current Inpatient Medications Current Inpatient Medications: Current Inpatient Medications Acetaminophen (Acetaminophen 325 Mg Tab) 650 mg PO Q4H PRN PRN Reason: Headache or Minor Fever Stop: 03/14/22 11:06 Last Admin: 02/22/22 19:28 Dose: 650 mg Al Hydrox/Mg Hydrox/Simethicone (Aluminum/Magnesium Susp 30 Ml Udc) 30 ml PO Q4H PRN PRN Reason: GI Upset Stop: 03/14/22 11:06 Amlodipine Besylate (Amlodipine Besylate 5 Mg Tab) 5 mg PO QAM [facility]PL[facility] Stop: 03/21/22 08:59 Last Admin: 02/23/22 08:13 Dose: 5 mg Benztropine Mesylate (Benztropine Mesylate 0.5 Mg Tab) 0.5 mg PO Q6 PRN PRN Reason: Muscle Spasm Stop: 03/14/22 14:13 Bismuth Subsalicylate (Bismuth Subsalicylate Liqd 236 Ml) 15 ml PO PRN PRN PRN Reason: Loose Stool Stop: 03/14/22 11:06 Clonidine HCl (Clonidine Hcl 0.1 Mg Tab) 0.1 mg PO BID PAM Stop: 03/19/22 20:59 Last Admin: 02/23/22 08:13 Dose: 0.1 mg Haloperidol (Haloperidol 5 Mg Tab) 5 mg PO Q6 PRN PRN Reason: Anxiety/Agitation Stop: 03/14/22 14:13 Haloperidol (Haloperidol 5 Mg Tab) 5 mg PO QAM PAM Stop: 03/20/22 08:59 Last Admin: 02/23/22 08:13 Dose: 5 mg Haloperidol (Haloperidol 5 Mg Tab) 10 mg PO HS PAM Stop: 03/19/22 21:59 Last Admin: 02/22/22 20:48 Dose: 10 mg Hydroxyzine HCl (Hydroxyzine Hcl 25 Mg Tab) 50 mg PO HSZ PRN PRN Reason: Insomnia Stop: 03/14/22 11:06 Hydroxyzine HCl (Hydroxyzine Hcl 25 Mg Tab) 25 mg PO Q4H PRN PRN Reason: Anxiety Stop: 03/14/22 11:06 Lorazepam (Lorazepam 0.5 Mg Tab) 0.5 mg PO Q6 PRN PRN Reason: Anxiety Stop: 03/14/22 14:13 Last Admin: 02/17/22 06:24 Dose: 0.5 mg Magnesium Hydroxide (Magnesium Hydroxide Susp 30 Ml Udc) 30 ml PO DAILY PRN PRN Reason: Constipation Stop: 03/14/22 11:06 Potassium Chloride (Potassium Chloride Crtab 20 Meq Tabcr) 20 meq PO BID PAM Stop: 03/22/22 08:59 Last Admin: 02/23/22 08:14 Dose: 20 meq Sodium Chloride (Sodium Chloride 0.65% Na Soln 45 Ml ([place])) 1 - 2 sprays NA PRN PRN PRN Reason: Nasal Dryness/Congestion Stop: 03/14/22 11:06 Trazodone HCl (Trazodone Hcl 50 Mg Tab) 50 mg PO HS PRN PRN Reason: Insomnia Stop: 03/21/22 21:59 Mental Health & Subst Abuse Tx Psychiatrist Name of Psychiatrist: Arsenio Hernandez Psychiatrist's Time of Appointment with Psychiatrist: 8:30am Psychiatric Appointment Comment: [address] [place] [address] Tapper Balance Wheel Screw Hole Name of Tapper Balance Wheel Screw Hole: [facility] Valenzuela
[2022-02-23] MEDS: ACETAMINOPHEN 325 MG TAB PO PRN (14:15)
[2022-02-24] MEDS: amLODIPine BESYLATE 5 MG TAB PO SCH (08:50)
[2022-02-24] MEDS: cloNIDine HCL 0.1 MG TAB PO SCH ×2 (08:50→20:34)
[2022-02-24] MEDS: POTASSIUM CHLORIDE CRTAB 20 MEQ TABCR PO SCH ×2 (08:51→20:34)
[2022-02-24] MEDS: haloperidoL 5 MG TAB PO SCH ×2 (08:52→20:34)
--- NOTE | 2022-02-24 11:31 | Psychiatric Progress Note ---
Date of Service February 24, 2022 Impression / Recommendations Impression 61 yo female with a hx of schizophrenia/schizoaffective do, admitted medically for ABHISHEK and hypokalemia in the setting of poor self care during a period of noncompliance with Haldol. She was unable to complete work up on med floor to rule out vascular event as part of possible cognitive decline due to paranoia, no prior dx of dementia so proceeded with 302 given lack of community resources around holiday and hope that she would agree to resume antipsychotic medication. Diagnostically seems consistent with episode of latisha and psychosis due to schizoaffective disorder but does seem to have some memory issues vs paranoia limiting recall. 303 commitment granted on 02/16/2022. MNPR due to ongoing paranoia 02/24/2022: more involved in groups Plan: continue current meds and treatment plan pending guardianship hearing (1) Schizophrenia: Inventory Assets Strengths: hospitalizations far apart, already known to office of aging Needs: resume outpatient services, antipsychotic medication Suicide Risk Level Suicide Risk Level: Low (q15 min observation checks) (paranoia and psychosis but no statements of depression nor SI, comes to nurses with needs) Risk Factors Assessment : No Health Problems: No Mental Health Diagnoses: Yes Substance Use Disorders: No Previous Attempt: No Previous Psychiatric Hospitalization: Yes Protective Factors Assessment : No Supportive Family: Yes Interval History Identifying Information 61 yo female with a history of schizophrenia/schizoaffective dx, [facility], was admitted on02/12/22 12:24 on a 302 involuntary commitment for inability to care for self due to paranoia and disorganization. She was initially admitted to the medical floor on 02/08/22 for treatment of hypokalemia. On 303 commitment. Chief Complaint "I want to take singing lessons." Review of Systems Sleep Information Total Hours of Sleep: 5.75 Sleep Comments: Awake at times, but stayed in room and did not wander unit Meal Information Percent Meal Consumed - Breakfast: 100 Percent Meal Consumed - Lunch: 100 Percent Meal Consumed - Dinner: 100 Telehealth Telehealth Options: Telephone only For the duration of the visit, provider was performing the assessment from: A different facility than the patient After establishing a telemedicine visit, patient was: Patient/authorized rep acknowledged consent and understanding and Gave permission to continue telehealth session Total Time Spent (minutes): 7 Subjective Subjective Patient was seen & assessed and interval progress reviewed with treatment team. Patient rates her mood as good. She has been attending more groups. No evidence responding to internal stimuli. Still little insight into why she is in the hospital. Physical Exam Psychiatric Orientation: alert Speech: normal rate/rhythm/volume of speech (more spontaneous) Mood: no depressed mood Thought Process: + concrete thought process Thought Content: + paranoid (carries toilettries in a bag) Hallucinations: no auditory hallucinations Cognition: attention grossly intact and language grossly intact Insight: + impaired insight Judgement: + impaired judgement Vital Signs (Past 24 Hours) Last Vital Signs Temp 37.4 C 02/24/22 06:33 Pulse 102 H 02/24/22 06:34 Resp 16 02/24/22 06:33 BP 165/85 H 02/24/22 06:34 Pulse Ox 96 02/14/22 06:00 O2 Del Method 02/23/22 06:00 Results & Data ([facility]) Current Inpatient Medications Current Inpatient Medications: Current Inpatient Medications Acetaminophen (Acetaminophen 325 Mg Tab) 650 mg PO Q4H PRN PRN Reason: Headache or Minor Fever Stop: 03/14/22 11:06 Last Admin: 02/23/22 14:15 Dose: 650 mg Al Hydrox/Mg Hydrox/Simethicone (Aluminum/Magnesium Susp 30 Ml Udc) 30 ml PO Q4H PRN PRN Reason: GI Upset Stop: 03/14/22 11:06 Amlodipine Besylate (Amlodipine Besylate 5 Mg Tab) 5 mg PO QAM [facility] Stop: 03/21/22 08:59 Last Admin: 02/24/22 08:50 Dose: 5 mg Benztropine Mesylate (Benztropine Mesylate 0.5 Mg Tab) 0.5 mg PO Q6 PRN PRN Reason: Muscle Spasm Stop: 03/14/22 14:13 Bismuth Subsalicylate (Bismuth Subsalicylate Liqd 236 Ml) 15 ml PO PRN PRN PRN Reason: Loose Stool Stop: 03/14/22 11:06 Clonidine HCl (Clonidine Hcl 0.1 Mg Tab) 0.1 mg PO BID PAM Stop: 03/19/22 20:59 Last Admin: 02/24/22 08:50 Dose: 0.1 mg Haloperidol (Haloperidol 5 Mg Tab) 5 mg PO Q6 PRN PRN Reason: Anxiety/Agitation Stop: 03/14/22 14:13 Haloperidol (Haloperidol 5 Mg Tab) 5 mg PO QAM PAM Stop: 03/20/22 08:59 Last Admin: 02/24/22 08:52 Dose: 5 mg Haloperidol (Haloperidol 5 Mg Tab) 10 mg PO HS PAM Stop: 03/19/22 21:59 Last Admin: 02/23/22 20:58 Dose: 10 mg Hydroxyzine HCl (Hydroxyzine Hcl 25 Mg Tab) 50 mg PO HSZ PRN PRN Reason: Insomnia Stop: 03/14/22 11:06 Hydroxyzine HCl (Hydroxyzine Hcl 25 Mg Tab) 25 mg PO Q4H PRN PRN Reason: Anxiety Stop: 03/14/22 11:06 Lorazepam (Lorazepam 0.5 Mg Tab) 0.5 mg PO Q6 PRN PRN Reason: Anxiety Stop: 03/14/22 14:13 Last Admin: 02/17/22 06:24 Dose: 0.5 mg Magnesium Hydroxide (Magnesium Hydroxide Susp 30 Ml Udc) 30 ml PO DAILY PRN PRN Reason: Constipation Stop: 03/14/22 11:06 Potassium Chloride (Potassium Chloride Crtab 20 Meq Tabcr) 20 meq PO BID PAM Stop: 03/22/22 08:59 Last Admin: 02/24/22 08:51 Dose: 20 meq Sodium Chloride (Sodium Chloride 0.65% Na Soln 45 Ml ([place])) 1 - 2 sprays NA PRN PRN PRN Reason: Nasal Dryness/Congestion Stop: 03/14/22 11:06 Trazodone HCl (Trazodone Hcl 50 Mg Tab) 50 mg PO HS PRN PRN Reason: Insomnia Stop: 03/21/22 21:59 Mental Health & Subst Abuse Tx Psychiatrist Name of Psychiatrist: Arsenio Hernandez Psychiatrist's Time of Appointment with Psychiatrist: 8:30am Psychiatric Appointment Comment: [address] [place] [address] Perch Mender Name of Perch Mender: [facility]
[2022-02-25] MEDS: POTASSIUM CHLORIDE CRTAB 20 MEQ TABCR PO SCH ×2 (09:12→20:26)
[2022-02-25] MEDS: haloperidoL 5 MG TAB PO SCH ×2 (09:13→20:26)
[2022-02-25] MEDS: amLODIPine BESYLATE 5 MG TAB PO SCH (09:13)
[2022-02-25] MEDS: cloNIDine HCL 0.1 MG TAB PO SCH ×2 (09:13→20:26)
--- NOTE | 2022-02-25 11:54 | Psychiatric Progress Note ---
Date of Service February 25, 2022 Impression / Recommendations Impression 61 yo female with a hx of schizophrenia/schizoaffective do, admitted medically for ABHISHEK and hypokalemia in the setting of poor self care during a period of noncompliance with Haldol. She was unable to complete work up on med floor to rule out vascular event as part of possible cognitive decline due to paranoia, no prior dx of dementia so proceeded with 302 given lack of community resources around holiday and hope that she would agree to resume antipsychotic medication. Diagnostically seems consistent with episode of latisha and psychosis due to schizoaffective disorder but does seem to have some memory issues vs paranoia limiting recall. 303 commitment granted on 02/16/2022. MNPR due paranoia 02/25/2022: less paranoia Plan: continue current meds and treatment plan pending guardianship hearing (1) Schizophrenia: Inventory Assets Strengths: hospitalizations far apart, already known to office of aging Needs: resume outpatient services, antipsychotic medication Suicide Risk Level Suicide Risk Level: Low (q15 min observation checks) (paranoia and psychosis but no statements of depression nor SI, comes to nurses with needs) Risk Factors Assessment : No Health Problems: No Mental Health Diagnoses: Yes Substance Use Disorders: No Previous Attempt: No Previous Psychiatric Hospitalization: Yes Protective Factors Assessment : No Supportive Family: Yes Interval History Identifying Information 61 yo female with a history of schizophrenia/schizoaffective dx, [facility], was admitted on02/12/22 12:24 on a 302 involuntary commitment for inability to care for self due to paranoia and disorganization. She was initially admitted to the medical floor on 02/08/22 for treatment of hy pokalemia. On 303 commitment. Chief Complaint willing to go to assisted living Review of Systems Sleep Information Total Hours of Sleep: 5 Sleep Comments: Awake at times, but stayed in room and did not wander unit Meal Information Percent Meal Consumed - Breakfast: 100 Percent Meal Consumed - Lunch: 100 Percent Meal Consumed - Dinner: 100 Subjective Subjective Patient was seen & assessed and interval progress reviewed with nursing and social work. Attended groups yesterday. No acute issues overnight. Physical Exam Psychiatric Orientation: alert Apperance: appropriately dressed and appropriately groomed Eye Contact: + fair eye contact Motor Behavior: no abnormal motor movements Speech: normal rate/rhythm/volume of speech Affect: euthymic affect Mood: no depressed mood Thought Process: + concrete thought process Thought Content: + paranoid Suicidal Thoughts: denies suicidal thoughts Homicidal Thoughts: denies homicidal thoughts Hallucinations: no auditory hallucinations and no visual hallucinations Cognition: attention grossly intact and language grossly intact Estimated Intelligence: consistent with education level Insight: + impaired insight Judgement: + impaired judgement Vital Signs (Past 24 Hours) Last Vital Signs Temp 36.8 C 02/25/22 06:00 Pulse 91 H 02/25/22 06:00 Resp 20 02/25/22 06:00 BP 157/95 H 02/25/22 06:52 Pulse Ox 96 02/14/22 06:00 O2 Del Method 02/25/22 06:00 Results & Data ([facility]) Current Inpatient Medications Current Inpatient Medications: Current Inpatient Medications Acetaminophen (Acetaminophen 325 Mg Tab) 650 mg PO Q4H PRN PRN Reason: Headache or Minor Fever Stop: 03/14/22 11:06 Last Admin: 02/23/22 14:15 Dose: 650 mg Al Hydrox/Mg Hydrox/Simethicone (Aluminum/Magnesium Susp 30 Ml Udc) 30 ml PO Q4H PRN PRN Reason: GI Upset Stop: 03/14/22 11:06 Amlodipine Besylate (Amlodipine Besylate 5 Mg Tab) 5 mg PO QAM [facility] Stop: 03/21/22 08:59 Last Admin: 02/25/22 09:13 Dose: 5 mg Benztropine Mesylate (Benztropine Mesylate 0.5 Mg Tab) 0.5 mg PO Q6 PRN PRN Reason: Muscle Spasm Stop: 03/14/22 14:13 Bismuth Subsalicylate (Bismuth Subsalicylate Liqd 236 Ml) 15 ml PO PRN PRN PRN Reason: Loose Stool Stop: 03/14/22 11:06 Clonidine HCl (Clonidine Hcl 0.1 Mg Tab) 0.1 mg PO BID [facility] Stop: 03/19/22 20:59 Last Admin: 02/25/22 09:13 Dose: 0.1 mg Haloperidol (Haloperidol 5 Mg Tab) 5 mg PO Q6 PRN PRN Reason: Anxiety/Agitation Stop: 03/14/22 14:13 Haloperidol (Haloperidol 5 Mg Tab) 5 mg PO QAM [facility] Stop: 03/20/22 08:59 Last Admin: 02/25/22 09:13 Dose: 5 mg Haloperidol (Haloperidol 5 Mg Tab) 10 mg PO HS PAM Stop: 03/19/22 21:59 Last Admin: 02/24/22 20:34 Dose: 10 mg Hydroxyzine HCl (Hydroxyzine Hcl 25 Mg Tab) 50 mg PO HSZ PRN PRN Reason: Insomnia Stop: 03/14/22 11:06 Hydroxyzine HCl (Hydroxyzine Hcl 25 Mg Tab) 25 mg PO Q4H PRN PRN Reason: Anxiety Stop: 03/14/22 11:06 Lorazepam (Lorazepam 0.5 Mg Tab) 0.5 mg PO Q6 PRN PRN Reason: Anxiety Stop: 03/14/22 14:13 Last Admin: 02/17/22 06:24 Dose: 0.5 mg Magnesium Hydroxide (Magnesium Hydroxide Susp 30 Ml Udc) 30 ml PO DAILY PRN PRN Reason: Constipation Stop: 03/14/22 11:06 Potassium Chloride (Potassium Chloride Crtab 20 Meq Tabcr) 20 meq PO BID PAM Stop: 03/22/22 08:59 Last Admin: 02/25/22 09:12 Dose: 20 meq Sodium Chloride (Sodium Chloride 0.65% Na Soln 45 Ml ([place])) 1 - 2 sprays NA PRN PRN PRN Reason: Nasal Dryness/Congestion Stop: 03/14/22 11:06 Trazodone HCl (Trazodone Hcl 50 Mg Tab) 50 mg PO HS PRN PRN Reason: Insomnia Stop: 03/21/22 21:59 Mental Health & Subst Abuse Tx Psychiatrist Name of Psychiatrist: Arsenio Hernandez Psychiatrist's Time of Appointment with Psychiatrist: 8:30am Psychiatric Appointment Comment: [address] [place] [address] Foot Orthopedist Name of Foot Orthopedist: [facility]
[2022-02-26] MEDS: POTASSIUM CHLORIDE CRTAB 20 MEQ TABCR PO SCH ×2 (09:23→21:11)
[2022-02-26] MEDS: cloNIDine HCL 0.1 MG TAB PO SCH ×2 (09:23→21:10)
[2022-02-26] MEDS: amLODIPine BESYLATE 5 MG TAB PO SCH (09:23)
[2022-02-26] MEDS: haloperidoL 5 MG TAB PO SCH ×2 (09:25→21:11)
--- NOTE | 2022-02-26 16:36 | Psychiatric Progress Note ---
Date of Service February 26, 2022 Impression / Recommendations Impression 61 yo female with a hx of schizophrenia/schizoaffective do, admitted medically for ABHISHEK and hypokalemia in the setting of poor self care during a period of noncompliance with Haldol. She was unable to complete work up on med floor to rule out vascular event as part of possible cognitive decline due to paranoia, no prior dx of dementia so proceeded with 302 given lack of community resources around holiday and hope that she would agree to resume antipsychotic medication. Diagnostically seems consistent with episode of latihsa and psychosis due to schizoaffective disorder but does seem to have some memory issues vs paranoia limiting recall. 303 commitment granted on 02/16/2022. MNPR due paranoia 02/26/2022: reviewed interim progress per Dr. Bunch, showing slow improvement with haldol which she is tolerating well. Still some paranoia and limited insight but more social and engaging more with groups. [facility] meeting today. Guardianship hearing date has not yet been set. (1) Schizophrenia: Plan 02/26/2022: continue current medications and tx plan awaiting guardianship hearing 02/23/2022: completed emergency guardianship request/expert form for [facility]. 02/22/2022: emergency guardianship hearing as per [facility]. 02/21/2022: Continue with current medications and tx plan. 02/20/22: Continue with current medications and tx plan. 02/19/22: Continue with current medications and tx plan. Add trazodone 50mg qhs prn for insomnia. Check BMP tomorrow. 02/18/22: Continue with current medications and tx plan. Amlodipine added for ongoing HTN. 02/17/22: Increase haldol to 5mg qAM & 10mg qhs (previous outpt dose). Start clonidine 0.1mg BID for HTN (she reports this was used in past for HTN). 02/16/22: Continue with haldol 5mg BID. Goal for haldol decanoate if she agrees given history of non-adherence. 02/15/22: Stop seroquel. Start haldol 5mg BID. 02/14/22: Start seroquel 25mg qhs. Attempt fasting lipid panel and CMP tomorrow morning. 02/13/22: CM has communicated with [facility] who would like to seek emergency guardianship. 02/12/22: The patient was admitted to the [facility] ([facility] inpatient mental health unit) on q15 min checks (behavioral with suicide precautions) for safety. The patient will participate in group, recreational, and milieu therapies and will be offered additional individual and family sessions as clinically appropriate. will offer prn Haldol. would benefit from ARANGO. Currently refusing meds but taking potassium repletion with much encouragement. Inventory Assets Strengths: hospitalizations far apart, already known to office of aging Needs: resume outpatient services, antipsychotic medication Suicide Risk Level Suicide Risk Level: Low (q15 min observation checks) (paranoia and psychosis but no statements of depression nor SI, comes to nurses with needs) Risk Factors Assessment : No Health Problems: No Mental Health Diagnoses: Yes Substance Use Disorders: No Previous Attempt: No Previous Psychiatric Hospitalization: Yes Protective Factors Assessment : No Supportive Family: Yes Interval History Identifying Information 61 yo female with a history of schizophrenia/schizoaffective dx, lives alone in [place], was admitted on02/12/22 12:24 on a 302 involuntary commitment for inability to care for self due to paranoia and disorganization. She was initially admitted to the medical floor on 02/08/22 for treatment of hypokalemia. On 303 commitment. Chief Complaint "I'm alright". Review of Systems Sleep Information Total Hours of Sleep: 6.5 Sleep Comments: Awake at times, but stayed in room and did not wander unit Meal Information Percent Meal Consumed - Breakfast: 100 Percent Meal Consumed - Lunch: 100 Percent Meal Consumed - Dinner: 75 Nutrition Comment: pt. had a large meal ordered and ate 80%; leftovers were dated, labeled and refrigerated. Subjective Subjective Patient was seen & assessed and interval progress reviewed with treatment team nursing and social work. Attending groups, more social, laughing with me pleasantly. Reports stable mood. Agreeable to meeting with sales representative [employer] from [facility] today. Still with limited insight into reasons for admission. Notes she sometimes feels tired in the afternoon and thinks this could be from haldol but denies any other side effects. Agreeable to consideration for ARANGO. Physical Exam Psychiatric Orientation: alert and oriented x 3 Apperance: appropriately dressed and appropriately groomed Eye Contact: + fair eye contact Motor Behavior: no abnormal motor movements Speech: normal rate/rhythm/volume of speech Affect: euthymic affect Mood: no depressed mood Thought Process: + concrete thought process Thought Content: + paranoid Suicidal Thoughts: denies suicidal thoughts Homicidal Thoughts: denies homicidal thoughts Hallucinations: no auditory hallucinations and no visual hallucinations Cognition: attention grossly intact and language grossly intact Estimated Intelligence: consistent with education level Insight: + impaired insight Judgement: + impaired judgement Vital Signs (Past 24 Hours) Last Vital Signs Temp 36.2 C L 02/26/22 06:29 Pulse 102 H 02/26/22 06:30 Resp 18 02/26/22 06:29 BP 168/96 H 02/26/22 06:30 Pulse Ox 96 02/14/22 06:00 O2 Del Method 02/25/22 06:00 Results & Data ([facility]) Current Inpatient Medications Current Inpatient Medications: Current Inpatient Medications Acetaminophen (Acetaminophen 325 Mg Tab) 650 mg PO Q4H PRN PRN Reason: Headache or Minor Fever Stop: 03/14/22 11:06 Last Admin: 02/23/22 14:15 Dose: 650 mg Al Hydrox/Mg Hydrox/Simethicone (Aluminum/Magnesium Susp 30 Ml Udc) 30 ml PO Q4H PRN PRN Reason: GI Upset Stop: 03/14/22 11:06 Amlodipine Besylate (Amlodipine Besylate 5 Mg Tab) 5 mg PO QAM [facility] Stop: 03/21/22 08:59 Last Admin: 02/26/22 09:23 Dose: 5 mg Benztropine Mesylate (Benztropine Mesylate 0.5 Mg Tab) 0.5 mg PO Q6 PRN PRN Reason: Muscle Spasm Stop: 03/14/22 14:13 Bismuth Subsalicylate (Bismuth Subsalicylate Liqd 236 Ml) 15 ml PO PRN PRN PRN Reason: Loose Stool Stop: 03/14/22 11:06 Clonidine HCl (Clonidine Hcl 0.1 Mg Tab) 0.1 mg PO BID [facility] Stop: 03/19/22 20:59 Last Admin: 02/26/22 09:23 Dose: 0.1 mg Haloperidol (Haloperidol 5 Mg Tab) 5 mg PO Q6 PRN PRN Reason: Anxiety/Agitation Stop: 03/14/22 14:13 Haloperidol (Haloperidol 5 Mg Tab) 5 mg PO QAM [facility] Stop: 03/20/22 08:59 Last Admin: 02/26/22 09:25 Dose: 5 mg Haloperidol (Haloperidol 5 Mg Tab) 10 mg PO HS PAM Stop: 03/19/22 21:59 Last Admin: 02/25/22 20:26 Dose: 10 mg Hydroxyzine HCl (Hydroxyzine Hcl 25 Mg Tab) 50 mg PO HSZ PRN PRN Reason: Insomnia Stop: 03/14/22 11:06 Hydroxyzine HCl (Hydroxyzine Hcl 25 Mg Tab) 25 mg PO Q4H PRN PRN Reason: Anxiety Stop: 03/14/22 11:06 Lorazepam (Lorazepam 0.5 Mg Tab) 0.5 mg PO Q6 PRN PRN Reason: Anxiety Stop: 03/14/22 14:13 Last Admin: 02/17/22 06:24 Dose: 0.5 mg Magnesium Hydroxide (Magnesium Hydroxide Susp 30 Ml Udc) 30 ml PO DAILY PRN PRN Reason: Constipation Stop: 03/14/22 11:06 Potassium Chloride (Potassium Chloride Crtab 20 Meq Tabcr) 20 meq PO BID PAM Stop: 03/22/22 08:59 Last Admin: 02/26/22 09:23 Dose: 20 meq Sodium Chloride (Sodium Chloride 0.65% Na Soln 45 Ml ([place])) 1 - 2 sprays NA PRN PRN PRN Reason: Nasal Dryness/Congestion Stop: 03/14/22 11:06 Trazodone HCl (Trazodone Hcl 50 Mg Tab) 50 mg PO HS PRN PRN Reason: Insomnia Stop: 03/21/22 21:59 Mental Health & Subst Abuse Tx Psychiatrist Name of Psychiatrist: Arsenio Hernandez Psychiatrist's Time of Appointment with Psychiatrist: 10:15 AM Psychiatric Appointment Comment: [address] [place] [address] Scrap Crane Operator Name of Scrap Crane Operator: [facility] Val[facility]uel[facility]
--- NOTE | 2022-02-27 09:03 | Psychiatric Progress Note ---
Date of Service February 27, 2022 Impression / Recommendations Impression 61 yo female with a hx of schizophrenia/schizoaffective do, admitted medically for ABHISHEK and hypokalemia in the setting of poor self care during a period of noncompliance with Haldol. She was unable to complete work up on med floor to rule out vascular event as part of possible cognitive decline due to paranoia, no prior dx of dementia so proceeded with 302 given lack of community resources around holiday and hope that she would agree to resume antipsychotic medication. Diagnostically seems consistent with episode of latisha and psychosis due to schizoaffective disorder but does seem to have some memory issues vs paranoia limiting recall. 303 commitment granted on 02/16/2022. MNPR due paranoia 02/27/2022: steady progress with lessening of psychosis and improving organization. Blood pressure remains elevated and slightly tachycardic this morning but asymptomatic. Consents to increase of amlodipine. Discussed medication treatment options for haldol. Discussed risks, benefits and alternatives. Patient would like to start and consented to haldol decanoate for schizoaffective disorder. Reviewed side effects including but not limited to: movement (TD, NMS), cardiac (QTc prolongation), and metabolic (stroke, insulin resistance) and necessity for fasting lipid and glucose labwork and AIMS re-done with score of 0. Continues to show no evidence of any side effects from haldol including no EPS nor akathisia. (1) Schizophrenia: Plan 02/27/2022: Haldol decanoate 100mg IM tomorrow. Increased amlodipine to 10mg qd. 02/26/2022: continue current medications and tx plan awaiting guardianship hearing 02/23/2022: completed emergency guardianship request/expert form for [facility]. 02/22/2022: emergency guardianship hearing as per [facility]. 02/21/2022: Continue with current medications and tx plan. 02/20/22: Continue with current medications and tx plan. 02/19/22: Continue with current medications and tx plan. Add trazodone 50mg qhs prn for insomnia. Check BMP tomorrow. 02/18/22: Continue with current medications and tx plan. Amlodipine added for ongoing HTN. 02/17/22: Increase haldol to 5mg qAM & 10mg qhs (previous outpt dose). Start clonidine 0.1mg BID for HTN (she reports this was used in past for HTN). 02/16/22: Continue with haldol 5mg BID. Goal for haldol decanoate if she agrees given history of non-adherence. 02/15/22: Stop seroquel. Start haldol 5mg BID. 02/14/22: Start seroquel 25mg qhs. Attempt fasting lipid panel and CMP tomorrow morning. 02/13/22: CM has communicated with [facility] who would like to seek emergency guardianship. 02/12/22: The patient was admitted to the [facility] ([facility] inpatient mental health unit) on q15 min checks (behavioral with suicide precautions) for safety. The patient will participate in group, recreational, and milieu therapies and will be offered additional individual and family sessions as clinically appropriate. will offer prn Haldol. would benefit from ARANGO. Currently refusing meds but taking potassium repletion with much encouragement. Inventory Assets Strengths: hospitalizations far apart, already known to office of aging Needs: resume outpatient services, antipsychotic medication Suicide Risk Level Suicide Risk Level: Low (q15 min observation checks) (paranoia and psychosis but no statements of depression nor SI, comes to nurses with needs) Risk Factors Assessment : No Health Problems: No Mental Health Diagnoses: Yes Substance Use Disorders: No Previous Attempt: No Previous Psychiatric Hospitalization: Yes Protective Factors Assessment : No Supportive Family: Yes Interval History Identifying Information 61 yo female with a history of schizophrenia/schizoaffective dx, lives alone in [facility], was admitted on02/12/22 12:24 on a 302 involuntary commitment for inability to care for self due to paranoia and disorganization. She was initially admitted to the medical floor on 02/08/22 for treatment of hypokalemia. On 303 commitment. Chief Complaint "I just wanted to lie back down". Review of Systems Sleep Information Total Hours of Sleep: 9.25 Sleep Comments: Awake at times, but stayed in room and did not wander unit Meal Information Percent Meal Consumed - Breakfast: 100 Percent Meal Consumed - Lunch: 100 Percent Meal Consumed - Dinner: 100 Nutrition Comment: pt. had a large meal ordered and ate 80%; leftovers were dated, labeled and refrigerated. Subjective Subjective Patient was seen & assessed and interval progress reviewed with treatment team nursing and social work. Did well during meeting with [facility] utility sales representative yesterday. Office of Aging will revisit on Tuesday. Played a game with peers in the evening. Attending some groups. Slept well last night. This morning a bit disorganized with toothpaste around her mouth. Today her mood is "alright" but with some fatigue. She liked meeting with [facility] remains agreeable to going there. Denies any medication side effects. Denies chest pain, RODRIGUEZ, dizziness, muscle stiffness. Prefers option of haldol as a monthly injection instead of having to take daily pill. Physical Exam Psychiatric Orientation: alert and oriented x 3 Apperance: appropriately dressed and appropriately groomed Eye Contact: + fair eye contact Motor Behavior: no abnormal motor movements Speech: normal rate/rhythm/volume of speech Affect: euthymic affect Mood: no depressed mood Thought Process: + concrete thought process Thought Content: + paranoid Suicidal Thoughts: denies suicidal thoughts Homicidal Thoughts: denies homicidal thoughts Hallucinations: no auditory hallucinations and no visual hallucinations Cognition: attention grossly intact and language grossly intact Estimated Intelligence: consistent with education level Insight: + impaired insight Judgement: + impaired judgement Vital Signs (Past 24 Hours) Last Vital Signs Temp 36.7 C 02/27/22 06:46 Pulse 111 H 02/27/22 06:47 Resp 20 02/27/22 06:46 BP 176/79 H 02/27/22 06:47 Pulse Ox 96 02/14/22 06:00 O2 Del Method 02/25/22 06:00 Results & Data ([facility]) Current Inpatient Medications Current Inpatient Medications: Current Inpatient Medications Acetaminophen (Acetaminophen 325 Mg Tab) 650 mg PO Q4H PRN PRN Reason: Headache or Minor Fever Stop: 03/14/22 11:06 Last Admin: 02/23/22 14:15 Dose: 650 mg Al Hydrox/Mg Hydrox/Simethicone (Aluminum/Magnesium Susp 30 Ml Udc) 30 ml PO Q4H PRN PRN Reason: GI Upset Stop: 03/14/22 11:06 Amlodipine Besylate (Amlodipine Besylate 5 Mg Tab) 5 mg PO QAM PAM Stop: 03/21/22 08:59 Last Admin: 02/26/22 09:23 Dose: 5 mg Benztropine Mesylate (Benztropine Mesylate 0.5 Mg Tab) 0.5 mg PO Q6 PRN PRN Reason: Muscle Spasm Stop: 03/14/22 14:13 Bismuth Subsalicylate (Bismuth Subsalicylate Liqd 236 Ml) 15 ml PO PRN PRN PRN Reason: Loose Stool Stop: 03/14/22 11:06 Clonidine HCl (Clonidine Hcl 0.1 Mg Tab) 0.1 mg PO BID PAM Stop: 03/19/22 20:59 Last Admin: 02/26/22 21:10 Dose: 0.1 mg Haloperidol (Haloperidol 5 Mg Tab) 5 mg PO Q6 PRN PRN Reason: Anxiety/Agitation Stop: 03/14/22 14:13 Haloperidol (Haloperidol 5 Mg Tab) 5 mg PO QAM PAM Stop: 03/20/22 08:59 Last Admin: 02/26/22 09:25 Dose: 5 mg Haloperidol (Haloperidol 5 Mg Tab) 10 mg PO HS PAM Stop: 03/19/22 21:59 Last Admin: 02/26/22 21:11 Dose: 10 mg Hydroxyzine HCl (Hydroxyzine Hcl 25 Mg Tab) 50 mg PO HSZ PRN PRN Reason: Insomnia Stop: 03/14/22 11:06 Hydroxyzine HCl (Hydroxyzine Hcl 25 Mg Tab) 25 mg PO Q4H PRN PRN Reason: Anxiety Stop: 03/14/22 11:06 Lorazepam (Lorazepam 0.5 Mg Tab) 0.5 mg PO Q6 PRN PRN Reason: Anxiety Stop: 03/14/22 14:13 Last Admin: 02/17/22 06:24 Dose: 0.5 mg Magnesium Hydroxide (Magnesium Hydroxide Susp 30 Ml Udc) 30 ml PO DAILY PRN PRN Reason: Constipation Stop: 03/14/22 11:06 Potassium Chloride (Potassium Chloride Crtab 20 Meq Tabcr) 20 meq PO BID PAM Stop: 03/22/22 08:59 Last Admin: 02/26/22 21:11 Dose: 20 meq Sodium Chloride (Sodium Chloride 0.65% Na Soln 45 Ml ([place])) 1 - 2 sprays NA PRN PRN PRN Reason: Nasal Dryness/Congestion Stop: 03/14/22 11:06 Trazodone HCl (Trazodone Hcl 50 Mg Tab) 50 mg PO HS PRN PRN Reason: Insomnia Stop: 03/21/22 21:59 Mental Health & Subst Abuse Tx Psychiatrist Name of Psychiatrist: Arsenio Hernandez Psychiatrist's Time of Appointment with Psychiatrist: 10:15 AM Psychiatric Appointment Comment: [address] [place] [address] Management Psychologist Name of Management Psychologist: [facility] Bianca
[2022-02-27] MEDS: POTASSIUM CHLORIDE CRTAB 20 MEQ TABCR PO SCH ×2 (09:22→21:48)
[2022-02-27] MEDS: amLODIPine BESYLATE 5 MG TAB PO SCH (09:22)
[2022-02-27] MEDS: cloNIDine HCL 0.1 MG TAB PO SCH ×2 (09:22→21:49)
[2022-02-27] MEDS: haloperidoL 5 MG TAB PO SCH ×2 (09:22→21:48)
[2022-02-27] MEDS: ACETAMINOPHEN 325 MG TAB PO PRN (17:57)
[2022-02-28] MEDS: cloNIDine HCL 0.1 MG TAB PO SCH ×2 (07:36→21:42)
[2022-02-28] MEDS: amLODIPine BESYLATE 5 MG TAB PO SCH (07:36)
[2022-02-28] MEDS: POTASSIUM CHLORIDE CRTAB 20 MEQ TABCR PO SCH ×2 (08:28→21:43)
[2022-02-28] MEDS: haloperidoL 5 MG TAB PO SCH ×2 (08:30→21:44)
--- NOTE | 2022-02-28 08:58 | Psychiatric Progress Note ---
Date of Service February 28, 2022 Impression / Recommendations Impression 61 yo female with a hx of schizophrenia/schizoaffective do, admitted medically for ABHISHEK and hypokalemia in the setting of poor self care during a period of noncompliance with Haldol. She was unable to complete work up on med floor to rule out vascular event as part of possible cognitive decline due to paranoia, no prior dx of dementia so proceeded with 302 given lack of community resources around holiday and hope that she would agree to resume antipsychotic medication. Diagnostically seems consistent with episode of latisha and psychosis due to schizoaffective disorder but does seem to have some memory issues vs paranoia limiting recall. 303 commitment granted on 02/16/2022. MNPR due paranoia 02/28/2022: steady progress but with some increased paranoia last night and more isolative. Tolerating haldol decanoate so far. Continue to monitor BP and HR with increased dose of amlodipine. (1) Schizophrenia: Plan 02/28/22: Hadol decanoate 100mg IM. Decrease haldol po to 10mg hs. 02/27/2022: Haldol decanoate 100mg IM tomorrow. Increased amlodipine to 10mg qd. 02/26/2022: continue current medications and tx plan awaiting guardianship hearing 02/23/2022: completed emergency guardianship request/expert form for [facility]. 02/22/2022: emergency guardianship hearing as per [facility]. 02/21/2022: Continue with current medications and tx plan. 02/20/22: Continue with current medications and tx plan. 02/19/22: Continue with current medications and tx plan. Add trazodone 50mg qhs prn for insomnia. Check BMP tomorrow. 02/18/22: Continue with current medications and tx plan. Amlodipine added for ongoing HTN. 02/17/22: Increase haldol to 5mg qAM & 10mg qhs (previous outpt dose). Start clonidine 0.1mg BID for HTN (she reports this was used in past for HTN). 02/16/22: Continue with haldol 5mg BID. Goal for haldol decanoate if she agrees given history of non-adherence. 02/15/22: Stop seroquel. Start haldol 5mg BID. 02/14/22: Start seroquel 25mg qhs. Attempt fasting lipid panel and CMP tomorrow morning. 02/13/22: CM has communicated with [facility] who would like to seek emergency guardianship. 02/12/22: The patient was admitted to the [facility] ([facility] mental health unit) on q15 min checks (behavioral with suicide precautions) for safety. The patient will participate in group, recreational, and milieu therapies and will be offered additional individual and family sessions as clinically appropriate. will offer prn Haldol. would benefit from ARANGO. Currently refusing meds but taking potassium repletion with much encouragement. Inventory Assets Strengths: hospitalizations far apart, already known to office of aging Needs: resume outpatient services, antipsychotic medication Suicide Risk Level Suicide Risk Level: Low (q15 min observation checks) (paranoia and psychosis but no statements of depression nor SI, comes to nurses with needs) Risk Factors Assessment : No Health Problems: No Mental Health Diagnoses: Yes Substance Use Disorders: No Previous Attempt: No Previous Psychiatric Hospitalization: Yes Protective Factors Assessment : No Supportive Family: Yes Interval History Identifying Information 61 yo female with a history of schizophrenia/schizoaffective dx, lives alone in [facility], was admitted on02/12/22 12:24 on a 302 involuntary commitment for inability to care for self due to paranoia and disorganization. She was initially admitted to the medical floor on 02/08/22 for treatment of hypokalemia. On 303 commitment. Chief Complaint "I'm ok, I got my shot". Review of Systems Sleep Information Total Hours of Sleep: 7 Sleep Comments: Awake at times, but stayed in room and did not wander unit Meal Information Percent Meal Consumed - Breakfast: 100 Percent Meal Consumed - Lunch: 100 Percent Meal Consumed - Dinner: 100 Nutrition Comment: pt. had a large meal ordered and ate 80%; leftovers were dated, labeled and refrigerated. Subjective Subjective Patient was seen & assessed and interval progress reviewed with treatment team nursing and social work. Declined all groups yesterday. Last night more paranoia about her clothes, insisting items weren't hers and that staff stole a pair of her pants and "playing head games with her". Will only drink things from sealed containers. Received her haldol decanoate injection. Today reports stable mood and no side effects from haldol decanoate injection. Enjoying listening to music, asks some questions about change in pill shape with higher dose of BP medication but reassured when reminded that dose increased so pill shape can change. Physical Exam Psychiatric Orientation: alert and oriented x 3 Apperance: appropriately dressed and appropriately groomed Eye Contact: + fair eye contact Motor Behavior: no abnormal motor movements Speech: normal rate/rhythm/volume of speech Affect: euthymic affect Mood: no depressed mood Thought Process: + concrete thought process Thought Content: + paranoid Suicidal Thoughts: denies suicidal thoughts Homicidal Thoughts: denies homicidal thoughts Hallucinations: no auditory hallucinations and no visual hallucinations Cognition: attention grossly intact and language grossly intact Estimated Intelligence: consistent with education level Insight: + impaired insight Judgement: + impaired judgement Vital Signs (Past 24 Hours) Last Vital Signs Temp 37.1 C 02/28/22 07:30 Pulse 110 H 02/28/22 07:30 Resp 18 02/28/22 07:30 BP 180/83 H 02/28/22 07:30 Pulse Ox 97 02/28/22 07:30 O2 Del Method 02/28/22 07:30 Results & Data ([facility]) Current Inpatient Medications Current Inpatient Medications: Current Inpatient Medications Acetaminophen (Acetaminophen 325 Mg Tab) 650 mg PO Q4H PRN PRN Reason: Headache or Minor Fever Stop: 03/14/22 11:06 Last Admin: 02/27/22 17:57 Dose: 650 mg Al Hydrox/Mg Hydrox/Simethicone (Aluminum/Magnesium Susp 30 Ml Udc) 30 ml PO Q4H PRN PRN Reason: GI Upset Stop: 03/14/22 11:06 Amlodipine Besylate (Amlodipine Besylate 5 Mg Tab) 10 mg PO QAM PAM Stop: 03/30/22 08:59 Last Admin: 02/28/22 07:36 Dose: 10 mg Benztropine Mesylate (Benztropine Mesylate 0.5 Mg Tab) 0.5 mg PO Q6 PRN PRN Reason: Muscle Spasm Stop: 03/14/22 14:13 Bismuth Subsalicylate (Bismuth Subsalicylate Liqd 236 Ml) 15 ml PO PRN PRN PRN Reason: Loose Stool Stop: 03/14/22 11:06 Clonidine HCl (Clonidine Hcl 0.1 Mg Tab) 0.1 mg PO BID PAM Stop: 03/19/22 20:59 Last Admin: 02/28/22 07:36 Dose: 0.1 mg Haloperidol (Haloperidol 5 Mg Tab) 10 mg PO HS PAM Stop: 03/19/22 21:59 Last Admin: 02/27/22 21:48 Dose: 10 mg Haloperidol Decanoate (Haloperidol Decanoate Inj 50 Mg/Ml Vial) 100 mg IM ONE ONE Stop: 02/28/22 09:01 Last Admin: 02/28/22 08:31 Dose: 100 mg Hydroxyzine HCl (Hydroxyzine Hcl 25 Mg Tab) 50 mg PO HSZ PRN PRN Reason: Insomnia Stop: 03/14/22 11:06 Hydroxyzine HCl (Hydroxyzine Hcl 25 Mg Tab) 25 mg PO Q4H PRN PRN Reason: Anxiety Stop: 03/14/22 11:06 Lorazepam (Lorazepam 0.5 Mg Tab) 0.5 mg PO Q6 PRN PRN Reason: Anxiety Stop: 03/14/22 14:13 Last Admin: 02/17/22 06:24 Dose: 0.5 mg Magnesium Hydroxide (Magnesium Hydroxide Susp 30 Ml Udc) 30 ml PO DAILY PRN PRN Reason: Constipation Stop: 03/14/22 11:06 Potassium Chloride (Potassium Chloride Crtab 20 Meq Tabcr) 20 meq PO BID PAM Stop: 03/22/22 08:59 Last Admin: 02/28/22 08:28 Dose: 20 meq Sodium Chloride (Sodium Chloride 0.65% Na Soln 45 Ml ([place])) 1 - 2 sprays NA P RN PRN PRN Reason: Nasal Dryness/Congestion Stop: 03/14/22 11:06 Trazodone HCl (Trazodone Hcl 50 Mg Tab) 50 mg PO HS PRN PRN Reason: Insomnia Stop: 03/21/22 21:59 Mental Health & Subst Abuse Tx Psychiatrist Name of Psychiatrist: Arsenio Hernandez Psychiatrist's Time of Appointment with Psychiatrist: 10:15 AM Psychiatric Appointment Comment: [address] [place] [address] Heel Varnisher Name of Heel Varnisher: Office of [facility]
[2022-02-28] MEDS ORDERED: HALOPERIDOL DECANOATE INJ 50 MG/ML VIAL IM ONE (09:00)
[2022-03-01] MEDS: cloNIDine HCL 0.1 MG TAB PO SCH ×2 (08:44→20:27)
[2022-03-01] MEDS: POTASSIUM CHLORIDE CRTAB 20 MEQ TABCR PO SCH ×2 (08:44→20:27)
[2022-03-01] MEDS: amLODIPine BESYLATE 5 MG TAB PO SCH (08:45)
--- NOTE | 2022-03-01 15:16 | Psychiatric Progress Note ---
Date of Service March 01, 2022 Impression / Recommendations Impression 61 yo female with a hx of schizophrenia/schizoaffective do, admitted medically for ABHISHEK and hypokalemia in the setting of poor self care during a period of noncompliance with Haldol. She was unable to complete work up on med floor to rule out vascular event as part of possible cognitive decline due to paranoia, no prior dx of dementia so proceeded with 302 given lack of community resources around holiday and hope that she would agree to resume antipsychotic medication. Diagnostically seems consistent with episode of latisha and psychosis due to schizoaffective disorder but does seem to have some memory issues vs paranoia limiting recall. 303 commitment granted on 02/16/2022. MNPR due paranoia 03/01/2022: steady progress but with intermittent paranoia at times. Guardianship hearing date not yet set. BP improving with higher dose of amlodipine. Still some tachycardia but asymptomatic. (1) Schizophrenia: Plan 03/01/22: Continue current medications and tx plan. Will recheck K+ tomorrow. 02/28/22: Hadol decanoate 100mg IM. Decrease haldol po to 10mg hs. 02/27/2022: Haldol decanoate 100mg IM tomorrow. Increased amlodipine to 10mg qd. 02/26/2022: continue current medications and tx plan awaiting guardianship hearing 02/23/2022: completed emergency guardianship request/expert form for count [facility]. 02/22/2022: emergency guardianship hearing as per [facility]. 02/21/2022: Continue with current medications and tx plan. 02/20/22: Continue with current medications and tx plan. 02/19/22: Continue with current medications and tx plan. Add trazodone 50mg qhs prn for insomnia. Check BMP tomorrow. 02/18/22: Continue with current medications and tx plan. Amlodipine added for ongoing HTN. 02/17/22: Increase haldol to 5mg qAM & 10mg qhs (previous outpt dose). Start clonidine 0.1mg BID for HTN (she reports this was used in past for HTN). 02/16/22: Continue with haldol 5mg BID. Goal for haldol decanoate if she agrees given history of non-adherence. 02/15/22: Stop seroquel. Start haldol 5mg BID. 02/14/22: Start seroquel 25mg qhs. Attempt fasting lipid panel and CMP tomorrow morning. 02/13/22: CM has communicated with [facility] who would like to seek emergency guardianship. 02/12/22: The patient was admitted to the [facility] ([facility] mental health unit) on q15 min checks (behavioral with suicide precautions) for safety. The patient will participate in group, recreational, and milieu therapies and will be offered additional individual and family sessions as clinically appropriate. will offer prn Haldol. would benefit from ARANGO. Currently refusing meds but taking potassium repletion with much encouragement. Inventory Assets Strengths: hospitalizations far apart, already known to office of aging Needs: resume outpatient services, antipsychotic medication Suicide Risk Level Suicide Risk Level: Low (q15 min observation checks) (paranoia and psychosis but no statements of depression nor SI, comes to nurses with needs) Risk Factors Assessment : No Health Problems: No Mental Health Diagnoses: Yes Substance Use Disorders: No Previous Attempt: No Previous Psychiatric Hospitalization: Yes Protective Factors Assessment : No Supportive Family: Yes Interval History Identifying Information 61 yo female with a history of schizophrenia/schizoaffective dx, lives alone in [facility], was admitted on02/12/22 12:24 on a 302 involuntary commitment for inability to care for self due to paranoia and disorganization. She was initially admitted to the medical floor on 02/08/22 for treatment of hypokalemia. On 303 commitment. Chief Complaint "I'm ok". Review of Systems Sleep Information Total Hours of Sleep: 5.5 Sleep Comments: Awake at times, but stayed in room and did not wander unit Meal Information Percent Meal Consumed - Breakfast: 100 Percent Meal Consumed - Lunch: 100 Percent Meal Consumed - Dinner: 100 Nutrition Comment: pt. had a large meal ordered and ate 80%; leftovers were dated, labeled and refrigerated. Subjective Subjective Patient was seen & assessed and interval progress reviewed with treatment team nursing and social work. Attending more groups today. Denies any side effects from the haldol decanoate injection nor her po medications. Laughing at times. Did not have any questions and was brief during our interview but possibly due to her interest in returning to a game with staff. Physical Exam Psychiatric Orientation: alert and oriented x 3 Apperance: appropriately dressed and appropriately groomed Eye Contact: + fair eye contact Motor Behavior: no abnormal motor movements Speech: normal rate/rhythm/volume of speech Affect: euthymic affect Mood: no depressed mood Thought Process: + concrete thought process Thought Content: + paranoid (lessening) Suicidal Thoughts: denies suicidal thoughts Homicidal Thoughts: denies homicidal thoughts Hallucinations: no auditory hallucinations and no visual hallucinations Cognition: attention grossly intact and language grossly intact Estimated Intelligence: consistent with education level Insight: + impaired insight Judgement: + impaired judgement Vital Signs (Past 24 Hours) Last Vital Signs Temp 37 C 03/01/22 06:37 Pulse 114 H 03/01/22 06:38 Resp 16 03/01/22 06:37 BP 161/87 H 03/01/22 06:38 Pulse Ox 97 02/28/22 07:30 O2 Del Method 02/28/22 07:30 Results & Data ([facility] [[email or web address] Current Inpatient Medications Current Inpatient Medications: Current Inpatient Medications Acetaminophen (Acetaminophen 325 Mg Tab) 650 mg PO Q4H PRN PRN Reason: Headache or Minor Fever Stop: 03/14/22 11:06 Last Admin: 02/27/22 17:57 Dose: 650 mg Al Hydrox/Mg Hydrox/Simethicone (Aluminum/Magnesium Susp 30 Ml Udc) 30 ml PO Q4H PRN PRN Reason: GI Upset Stop: 03/14/22 11:06 Amlodipine Besylate (Amlodipine Besylate 5 Mg Tab) 10 mg PO QAM [facility] Stop: 03/30/22 08:59 Last Admin: 03/01/22 08:45 Dose: 10 mg Benztropine Mesylate (Benztropine Mesylate 0.5 Mg Tab) 0.5 mg PO Q6 PRN PRN Reason: Muscle Spasm Stop: 03/14/22 14:13 Bismuth Subsalicylate (Bismuth Subsalicylate Liqd 236 Ml) 15 ml PO PRN PRN PRN Reason: Loose Stool Stop: 03/14/22 11:06 Clonidine HCl (Clonidine Hcl 0.1 Mg Tab) 0.1 mg PO BID PAM Stop: 03/19/22 20:59 Last Admin: 03/01/22 08:44 Dose: 0.1 mg Haloperidol (Haloperidol 5 Mg Tab) 10 mg PO HS PAM Stop: 03/19/22 21:59 Last Admin: 02/28/22 21:44 Dose: 10 mg Hydroxyzine HCl (Hydroxyzine Hcl 25 Mg Tab) 50 mg PO HSZ PRN PRN Reason: Insomnia Stop: 03/14/22 11:06 Hydroxyzine HCl (Hydroxyzine Hcl 25 Mg Tab) 25 mg PO Q4H PRN PRN Reason: Anxiety Stop: 03/14/22 11:06 Lorazepam (Lorazepam 0.5 Mg Tab) 0.5 mg PO Q6 PRN PRN Reason: Anxiety Stop: 03/14/22 14:13 Last Admin: 02/17/22 06:24 Dose: 0.5 mg Magnesium Hydroxide (Magnesium Hydroxide Susp 30 Ml Udc) 30 ml PO DAILY PRN PRN Reason: Constipation Stop: 03/14/22 11:06 Potassium Chloride (Potassium Chloride Crtab 20 Meq Tabcr) 20 meq PO BID PAM Stop: 03/22/22 08:59 Last Admin: 03/01/22 08:44 Dose: 20 meq Sodium Chloride (Sodium Chloride 0.65% Na Soln 45 Ml ([place])) 1 - 2 sprays NA PRN PRN PRN Reason: Nasal Dryness/Congestion Stop: 03/14/22 11:06 Trazodone HCl (Trazodone Hcl 50 Mg Tab) 50 mg PO HS PRN PRN Reason: Insomnia Stop: 03/21/22 21:59 Mental Health & Subst Abuse Tx Psychiatrist Name of Psychiatrist: Arsenio Hernandez Psychiatrist's Time of Appointment with Psychiatrist: 10:15 AM Psychiatric Appointment Comment: [address] [place] [address] Clinical Rn Name of Clinical Rn: Office of [facility]
[2022-03-01] MEDS: haloperidoL 5 MG TAB PO SCH (20:27)
--- NOTE | 2022-03-02 08:40 | Psychiatric Progress Note ---
Date of Service March 02, 2022 Impression / Recommendations Impression 61 yo female with a hx of schizophrenia/schizoaffective do, admitted medically for ABHISHEK and hypokalemia in the setting of poor self care during a period of noncompliance with Haldol. She was unable to complete work up on med floor to rule out vascular event as part of possible cognitive decline due to paranoia, no prior dx of dementia so proceeded with 302 given lack of community resources around holiday and hope that she would agree to resume antipsychotic medication. Diagnostically seems consistent with episode of latisha and psychosis due to schizoaffective disorder but does seem to have some memory issues vs paranoia limiting recall. 303 commitment granted on 02/16/2022. MNPR due paranoia 03/02/2022: improving but still with periods of increased paranoia. Still carrying items around the unit at all times due to concern that others may take it. Emergency guardianship hearing tentatively scheduled for later this week. BP improved on higher dose of amlodipine. Still some tachycardia but asymptomati c, will increase freuqency of vital checks, if persists may consider EKG. Reviewed repeat K+ which remains stable with po repletion. Overall, I spent a total of 50 minutes with this case including review of labwork, direct evaluation of the patient at bedside, counseling the patient, discussion of the patient with the nurse and manager social during interdisciplinary rounds, discussion with case monitor from [facility] and documentation in the electronic health record. (1) Schizophrenia: Plan 03/02/22: Increase vital sign checks. 03/01/22: Continue current medications and tx plan. Will recheck K+ tomorrow. 02/28/22: Hadol decanoate 100mg IM. Decrease haldol po to 10mg hs. 02/27/2022: Haldol decanoate 100mg IM tomorrow. Increased amlodipine to 10mg qd. 02/26/2022: continue current medications and tx plan awaiting guardianship hearing 02/23/2022: completed emergency guardianship request/expert form [facility]. 02/22/2022: emergency guardianship hearing as per [facility]. 02/21/2022: Continue with current medications and tx plan. 02/20/22: Continue with current medications and tx plan. 02/19/22: Continue with current medications and tx plan. Add trazodone 50mg qhs prn for insomnia. Check BMP tomorrow. 02/18/22: Continue with current medications and tx plan. Amlodipine added for ongoing HTN. 02/17/22: Increase haldol to 5mg qAM & 10mg qhs (previous outpt dose). Start clonidine 0.1mg BID for HTN (she reports this was used in past for HTN). 02/16/22: Continue with haldol 5mg BID. Goal for haldol decanoate if she agrees given history of non-adherence. 02/15/22: Stop seroquel. Start haldol 5mg BID. 02/14/22: Start seroquel 25mg qhs. Attempt fasting lipid panel and CMP tomorrow morning. 02/13/22: CM has communicated with [facility] who would like to seek emergency guardianship. 02/12/22: The patient was admitted to the [facility] ([facility] mental health unit) on q15 min checks (behavioral with suicide precautions) for safety. The patient will participate in group, recreational, and milieu therapies and will be offered additional individual and family sessions as clinically appropriate. will offer prn Haldol. would benefit from ARANGO. Currently refusing meds but taking potassium repletion with much encouragement. Inventory Assets Strengths: hospitalizations far apart, already known to office of aging Needs: resume outpatient services, antipsychotic medication Suicide Risk Level Suicide Risk Level: Low (q15 min observation checks) (paranoia and psychosis but no statements of depression nor SI, comes to nurses with needs) Risk Factors Assessment : No Health Problems: No Mental Health Diagnoses: Yes Substance Use Disorders: No Previous Attempt: No Previous Psychiatric Hospitalization: Yes Protective Factors Assessment : No Supportive Family: Yes Interval History Identifying Information 61 yo female with a history of schizophrenia/schizoaffective dx, lives alone in [facility], was admitted on02/12/22 12:24 on a 302 involuntary commitment for inability to care for self due to paranoia and disorganization. She was initially admitted to the medical floor on 02/08/22 for treatment of hypokalemia. On 303 commitment. Chief Complaint "I'm ok". Review of Systems Sleep Information Total Hours of Sleep: 6.75 Sleep Comments: Awake at times, but stayed in room and did not wander unit Meal Information Percent Meal Consumed - Breakfast: 100 Percent Meal Consumed - Lunch: 100 Percent Meal Consumed - Dinner: 100 Nutrition Comment: pt. had a large meal ordered and ate 80%; leftovers were dated, labeled and refrigerated. Subjective Subjective Patient was seen & assessed and interval progress reviewed with treatment team nursing and social work. Likes the food here. Engaging in more groups. Still with increased paranoia toward certain staff and [facility] inventory representative/CW. At times suspicious of RNs/staff changing date on her food menu/moving clothes or touching items but less frequent. Reports good sleep. Denies any questions. No side effects from haldol decanoate. Ongoing tachycardia but asymptomatic. Physical Exam Psychiatric Orientation: alert and oriented x 3 Apperance: appropriately dressed and appropriately groomed Eye Contact: + fair eye contact Motor Behavior: no abnormal motor movements Speech: normal rate/rhythm/volume of speech Affect: euthymic affect Mood: no depressed mood Thought Process: + concrete thought process Thought Content: + paranoid (lessening) Suicidal Thoughts: denies suicidal thoughts Homicidal Thoughts: denies homicidal thoughts Hallucinations: no auditory hallucinations and no visual hallucinations Cognition: attention grossly intact and language grossly intact Estimated Intelligence: consistent with education level Insight: + impaired insight Judgement: + impaired judgement Vital Signs (Past 24 Hours) Last Vital Signs Temp 37 C 03/02/22 06:33 Pulse 112 H 03/02/22 06:34 Resp 18 03/02/22 06:33 BP 135/76 03/02/22 06:34 Pulse Ox 97 02/28/22 07:30 O2 Del Method 03/01/22 19:36 Results & Data ([facility]) Current Inpatient Medications Current Inpatient Medications: Current Inpatient Medications Acetaminophen (Acetaminophen 325 Mg Tab) 650 mg PO Q4H PRN PRN Reason: Headache or Minor Fever Stop: 03/14/22 11:06 Last Admin: 02/27/22 17:57 Dose: 650 mg Al Hydrox/Mg Hydrox/Simethicone (Aluminum/Magnesium Susp 30 Ml Udc) 30 ml PO Q4H PRN PRN Reason: GI Upset Stop: 03/14/22 11:06 Amlodipine Besylate (Amlodipine Besylate 5 Mg Tab) 10 mg PO QAM PAM Stop: 03/30/22 08:59 Last Admin: 03/01/22 08:45 Dose: 10 mg Benztropine Mesylate (Benztropine Mesylate 0.5 Mg Tab) 0.5 mg PO Q6 PRN PRN Reason: Muscle Spasm Stop: 03/14/22 14:13 Bismuth Subsalicylate (Bismuth Subsalicylate Liqd 236 Ml) 15 ml PO PRN PRN PRN Reason: Loose Stool Stop: 03/14/22 11:06 Clonidine HCl (Clonidine Hcl 0.1 Mg Tab) 0.1 mg PO BID PAM Stop: 03/19/22 20:59 Last Admin: 03/01/22 20:27 Dose: 0.1 mg Haloperidol (Haloperidol 5 Mg Tab) 10 mg PO HS PAM Stop: 03/19/22 21:59 Last Admin: 03/01/22 20:27 Dose: 10 mg Hydroxyzine HCl (Hydroxyzine Hcl 25 Mg Tab) 50 mg PO HSZ PRN PRN Reason: Insomnia Stop: 03/14/22 11:06 Hydroxyzine HCl (Hydroxyzine Hcl 25 Mg Tab) 25 mg PO Q4H PRN PRN Reason: Anxiety Stop: 03/14/22 11:06 Lorazepam (Lorazepam 0.5 Mg Tab) 0.5 mg PO Q6 PRN PRN Reason: Anxiety Stop: 03/14/22 14:13 Last Admin: 02/17/22 06:24 Dose: 0.5 mg Magnesium Hydroxide (Magnesium Hydroxide Susp 30 Ml Udc) 30 ml PO DAILY PRN PRN Reason: Constipation Stop: 03/14/22 11:06 Potassium Chloride (Potassium Chloride Crtab 20 Meq Tabcr) 20 meq PO BID PAM Stop: 03/22/22 08:59 Last Admin: 03/01/22 20:27 Dose: 20 meq Sodium Chloride (Sodium Chloride 0.65% Na Soln 45 Ml ([place])) 1 - 2 sprays NA PRN PRN PRN Reason: Nasal Dryness/Congestion Stop: 03/14/22 11:06 Trazodone HCl (Trazodone Hcl 50 Mg Tab) 50 mg PO HS PRN PRN Reason: Insomnia Stop: 03/21/22 21:59 Mental Health & Subst Abuse Tx Psychiatrist Name of Psychiatrist: Arsenio Hernandez Psychiatrist's Time of Appointment with Psychiatrist: 10:15 AM Psychiatric Appointment Comment: [address] [place] [address] Benefit Director Name of Benefit Director: [facility] Bianca
[2022-03-02] MEDS: amLODIPine BESYLATE 5 MG TAB PO SCH (09:04)
[2022-03-02] MEDS: cloNIDine HCL 0.1 MG TAB PO SCH ×2 (09:05→20:51)
[2022-03-02] MEDS: POTASSIUM CHLORIDE CRTAB 20 MEQ TABCR PO SCH ×2 (09:05→20:51)
[2022-03-02 09:41] LABS: Anion Gap 7 (3-11); BUN Creatinine Ratio 34.6 (10-20); Blood Urea Nitrogen 27 mg/dl (6-23); Carbon Dioxide 28 mmol/L (21-32); Chloride 106 mmol/L (98-107); Est GFR (African American) 93.8 ml/min; Est GFR (Non-African American) 80.9 ml/min; Glucose 81 mg/dl (70-99(Fasting)); Potassium 3.7 mmol/L (3.5-5.1); Sodium 141 mmol/L (136-145)
[2022-03-02] MEDS: haloperidoL 5 MG TAB PO SCH (20:51)
[2022-03-03] MEDS: cloNIDine HCL 0.1 MG TAB PO SCH ×2 (09:16→20:27)
[2022-03-03] MEDS: amLODIPine BESYLATE 5 MG TAB PO SCH (09:16)
[2022-03-03] MEDS: POTASSIUM CHLORIDE CRTAB 20 MEQ TABCR PO SCH ×2 (09:16→20:27)
--- NOTE | 2022-03-03 15:47 | Electrocardiogram Report ---
Test Reason : Blood Pressure : / mmHG Vent. Rate : 099 BPM Atrial Rate : 099 BPM P-R Int : 144 ms QRS Dur : 088 ms QT Int : 372 ms P-R-T Axes : 068 070 011 degrees QTc Int : 477 ms Normal sinus rhythm Nonspecific T wave abnormality Abnormal ECG When compared with ECG of 15-FEB-2022 12:18, Premature supraventricular complexes are no longer Present Confirmed by Peterson Prescott ([id number]) on 03/03/2022 3:47:30 PM Referred By: Kirti Bunch Confirmed By:Peterson Prescott
--- NOTE | 2022-03-03 16:31 | Psychiatric Progress Note ---
Date of Service March 03, 2022 Impression / Recommendations Impression 61 yo female with a hx of schizophrenia/schizoaffective do, admitted medically for ABHISHEK and hypokalemia in the setting of poor self care during a period of noncompliance with Haldol. She was unable to complete work up on med floor to rule out vascular event as part of possible cognitive decline due to paranoia, no prior dx of dementia so proceeded with 302 given lack of community resources around holiday and hope that she would agree to resume antipsychotic medication. Diagnostically seems consistent with episode of latisha and psychosis due to schizoaffective disorder but does seem to have some memory issues vs paranoia limiting recall. 303 commitment granted on 02/16/2022. MNPR due paranoia 03/03/2022: improving but still with periods of increased paranoia. Guardianship hearing scheduled for tomorrow. Still with intermittent tachycardia so EKG ordered and reviewed with normal sinus rhythm and QTc<500ms. (1) Schizophrenia: Plan 03/03/22: EKG. Continue current medications and tx plan. 03/02/22: Increase vital sign checks. 03/01/22: Continue current medications and tx plan. Will recheck K+ tomorrow. 02/28/22: Hadol decanoate 100mg IM. Decrease haldol po to 10mg hs. 02/27/2022: Haldol decanoate 100mg IM tomorrow. Increased amlodipine to 10mg qd. 02/26/2022: continue current medications and tx plan awaiting guardianship hearing 02/23/2022: completed emergency guardianship request/expert form for [facility]. 02/22/2022: emergency guardianship hearing as per [facility]. 02/21/2022: Continue with current medications and tx plan. 02/20/22: Continue with current medications and tx plan. 02/19/22: Continue with current medications and tx plan. Add trazodone 50mg qhs prn for insomnia. Check BMP tomorrow. 02/18/22: Continue with current medications and tx plan. Amlodipine added for ongoing HTN. 02/17/22: Increase haldol to 5mg qAM & 10mg qhs (previous outpt dose). Start clonidine 0.1mg BID for HTN (she reports this was used in past for HTN). 02/16/22: Continue with haldol 5mg BID. Goal for haldol decanoate if she agrees given history of non-adherence. 02/15/22: Stop seroquel. Start haldol 5mg BID. 02/14/22: Start seroquel 25mg qhs. Attempt fasting lipid panel and CMP tomorrow morning. 02/13/22: CM has communicated with [facility] who would like to seek emergency guardianship. 02/12/22: The patient was admitted to the [facility] ([facility] mental health unit) on q15 min checks (behavioral with suicide precautions) for safety. The patient will participate in group, recreational, and milieu therapies and will be offered additional individual and family sessions as clinically appropriate. will offer prn Haldol. would benefit from ARANGO. Currently refusing meds but taking potassium repletion with much encouragement. Inventory Assets Strengths: hospitalizations far apart, already known to office of aging Needs: resume outpatient services, antipsychotic medication Suicide Risk Level Suicide Risk Level: Low (q15 min observation checks) (paranoia and psychosis but no statements of depression nor SI, comes to nurses with needs) Risk Factors Assessment : No Health Problems: No Mental Health Diagnoses: Yes Substance Use Disorders: No Previous Attempt: No Previous Psychiatric Hospitalization: Yes Protective Factors Assessment : No Supportive Family: Yes Interval History Identifying Information 61 yo female with a history of schizophrenia/schizoaffective dx, lives alone in [facility], was admitted on02/12/22 12:24 on a 302 involuntary commitment for inability to care for self due to paranoia and disorganization. She was initially admitted to the medical floor on 02/08/22 for treatment of hypokalemia. On 303 commitment. Chief Complaint "I'm ok". Review of Systems Sleep Information Total Hours of Sleep: 6.25 Sleep Comments: Awake at times, but stayed in room and did not wander unit Meal Information Percent Meal Consumed - Breakfast: 100 Percent Meal Consumed - Lunch: 100 Percent Meal Consumed - Dinner: 100 Nutrition Comment: pt. had a large meal ordered and ate 80%; leftovers were dated, labeled and refrigerated. Subjective Subjective Patient was seen & assessed and interval progress reviewed with treatment team nursing and social work. isolative at times but attending groups more consistently. Lying in bed in the dark mid day but appropriate when I engage with her. Endorses stable mood. Still carrying paperbag around with her at all times. Physical Exam Psychiatric Orientation: alert and oriented x 3 Apperance: appropriately dressed and appropriately groomed Eye Contact: + fair eye contact Motor Behavior: no abnormal motor movements Speech: normal rate/rhythm/volume of speech Affect: euthymic affect Mood: no depressed mood Thought Process: + concrete thought process Thought Content: + paranoid (lessening) Suicidal Thoughts: denies suicidal thoughts Homicidal Thoughts: denies homicidal thoughts Hallucinations: no auditory hallucinations and no visual hallucinations Cognition: attention grossly intact and language grossly intact Estimated Intelligence: consistent with education level Insight: + impaired insight Judgement: + impaired judgement Vital Signs (Past 24 Hours) Last Vital Signs Temp 37.0 C 03/03/22 06:47 Pulse 103 H 03/03/22 06:47 Resp 18 03/03/22 06:47 BP 143/87 H 03/03/22 06:47 Pulse Ox 97 03/02/22 20:56 O2 Del Method 03/02/22 20:56 Results & Data ([facility]) Laboratory Results Laboratory Results - last 24 hr 03/02/22 08:35 Sodium 141 Potassium 3.7 Chloride 106 Carbon Dioxide 28 Anion Gap 7 BUN 27 H Creatinine 0.78 Est Cr Clr Drug Dosing Not Reportable Est GFR ( Amer) 93.8 Est GFR (Non-Af Amer) 80.9 BUN/Creatinine Ratio 34.6 H Glucose 81 Calcium 9.0 Current Inpatient Medications Current Inpatient Medications: Current Inpatient Medications Acetaminophen (Acetaminophen 325 Mg Tab) 650 mg PO Q4H PRN PRN Reason: Headache or Minor Fever Stop: 03/14/22 11:06 Last Admin: 02/27/22 17:57 Dose: 650 mg Al Hydrox/Mg Hydrox/Simethicone (Aluminum/Magnesium Susp 30 Ml Udc) 30 ml PO Q4H PRN PRN Reason: GI Upset Stop: 03/14/22 11:06 Amlodipine Besylate (Amlodipine Besylate 5 Mg Tab) 10 mg PO QAM PAM Stop: 03/30/22 08:59 Last Admin: 03/02/22 09:04 Dose: 10 mg Benztropine Mesylate (Benztropine Mesylate 0.5 Mg Tab) 0.5 mg PO Q6 PRN PRN Reason: Muscle Spasm Stop: 03/14/22 14:13 Bismuth Subsalicylate (Bismuth Subsalicylate Liqd 236 Ml) 15 ml PO PRN PRN PRN Reason: Loose Stool Stop: 03/14/22 11:06 Clonidine HCl (Clonidine Hcl 0.1 Mg Tab) 0.1 mg PO BID PAM Stop: 03/19/22 20:59 Last Admin: 03/02/22 20:51 Dose: 0.1 mg Haloperidol (Haloperidol 5 Mg Tab) 10 mg PO HS PAM Stop: 03/19/22 21:59 Last Admin: 03/02/22 20:51 Dose: 10 mg Hydroxyzine HCl (Hydroxyzine Hcl 25 Mg Tab) 50 mg PO HSZ PRN PRN Reason: Insomnia Stop: 03/14/22 11:06 Hydroxyzine HCl (Hydroxyzine Hcl 25 Mg Tab) 25 mg PO Q4H PRN PRN Reason: Anxiety Stop: 03/14/22 11:06 Lorazepam (Lorazepam 0.5 Mg Tab) 0.5 mg PO Q6 PRN PRN Reason: Anxiety Stop: 03/14/22 14:13 Last Admin: 02/17/22 06:24 Dose: 0.5 mg Magnesium Hydroxide (Magnesium Hydroxide Susp 30 Ml Udc) 30 ml PO DAILY PRN PRN Reason: Constipation Stop: 03/14/22 11:06 Potassium Chloride (Potassium Chloride Crtab 20 Meq Tabcr) 20 meq PO BID PAM Stop: 03/22/22 08:59 Last Admin: 03/02/22 20:51 Dose: 20 meq Sodium Chloride (Sodium Chloride 0.65% Na Soln 45 Ml ([place])) 1 - 2 sprays NA PRN PRN PRN Reason: Nasal Dryness/Congestion Stop: 03/14/22 11:06 Trazodone HCl (Trazodone Hcl 50 Mg Tab) 50 mg PO HS PRN PRN Reason: Insomnia Stop: 03/21/22 21:59 Mental Health & Subst Abuse Tx Psychiatrist Name of Psychiatrist: Arsenio Hernandez Psychiatrist's Time of Appointment with Psychiatrist: 10:15 AM Psychiatric Appointment Comment: [address] [place] [address] Acid Strength Inspector Name of Acid Strength Inspector: [facility] of [facility]
[2022-03-03] MEDS: haloperidoL 5 MG TAB PO SCH (20:27)
[2022-03-03] MEDS: ACETAMINOPHEN 325 MG TAB PO PRN (20:52)
[2022-03-04] MEDS: amLODIPine BESYLATE 5 MG TAB PO SCH (09:33)
[2022-03-04] MEDS: cloNIDine HCL 0.1 MG TAB PO SCH ×2 (09:34→20:07)
[2022-03-04] MEDS: POTASSIUM CHLORIDE CRTAB 20 MEQ TABCR PO SCH ×2 (09:34→20:07)
--- NOTE | 2022-03-04 12:15 | Communication Note ---
Date of Service: March 04, 2022 Provided phone testimony based on subpeona from [facility] Invoice Clerk Carmen in front of Sound Tester Benjy, effectively reconfirming information provided on expert form. Reviewed improvement since form submitted in paranoia. Patient is now oriented and was able to complete the MoCA on 03/03/2022 scoring 13/30 with visuospatial difficulties on trails, incorrect placement of clock hands, inability to recall words/digits with limited abstraction. This score suggests moderate cognitive difficulties. Reviewed participation in ADLs on the unit and recommendation for assisted living and guardianship. Interested parties included sister in law who asked specifically if Sun had the ability to pick her own guardian. Reinforced that my role was determine need for guardianship and that I had no opinion re: who is named. That said, Sun is now oriented and does maintain a basic ability to exert preferences when offered choices, like picking from a flavor of ice cream. I was dimissed from the proceeding and team will await final determination from [facility]/the court.
--- NOTE | 2022-03-04 15:39 | Psychiatric Progress Note ---
Date of Service March 04, 2022 Impression / Recommendations Impression 61 yo female with a hx of schizophrenia/schizoaffective do, admitted medically for ABHISHEK and hypokalemia in the setting of poor self care during a period of noncompliance with Haldol. She was unable to complete work up on med floor to rule out vascular event as part of possible cognitive decline due to paranoia, no prior dx of dementia so proceeded with 302 given lack of community resources around holiday and hope that she would agree to resume antipsychotic medication. Diagnostically seems consistent with episode of latisha and psychosis due to schizoaffective disorder but does seem to have some memory issues vs paranoia limiting recall. 303 commitment granted on 02/16/2022. MNPR due paranoia 03/04/2022: improving, now under legal guardianship. Spoke with emergency guardian and reviewed POLST form. 304 outpatient commitment hearing scheduled for tomorrow. Overall, I spent a total of 90 minutes with this case including review of chart records, direct evaluation of the patient at bedside, counseling the patient, completion of personal nursing home medical forms, completion of POLST with patient and review with patient's new legal guardian, completion of 304 outpatient commitment forms, discussion with Office of Aging fibreglass lay up worker, discussion of the patient during clinical rounds and documentation in the electronic health record. (1) Schizophrenia: (2) HTN (hypertension): Plan 03/04/22: Continue current medications and tx plan. 03/03/22: EKG. Continue current medications and tx plan. 03/02/22: Increase vital sign checks. 03/01/22: Continue current medications and tx plan. Will recheck K+ tomorrow. 02/28/22: Hadol decanoate 100mg IM. Decrease haldol po to 10mg hs. 02/27/2022: Haldol decanoate 100mg IM tomorrow. Increased amlodipine to 10mg qd. 02/26/2022: continue current medications and tx plan awaiting guardianship hearing 02/23/2022: completed emergency guardianship request/expert form for [facility]/O. 02/22/2022: emergency guardianship hearing as per [facility]. 02/21/2022: Continue with current medications and tx plan. 02/20/22: Continue with current medications and tx plan. 02/19/22: Continue with current medications and tx plan. Add trazodone 50mg qhs prn for insomnia. Check BMP tomorrow. 02/18/22: Continue with current medications and tx plan. Amlodipine added for ongoing HTN. 02/17/22: Increase haldol to 5mg qAM & 10mg qhs (previous outpt dose). Start clonidine 0.1mg BID for HTN (she reports this was used in past for HTN). 02/16/22: Continue with haldol 5mg BID. Goal for haldol decanoate if she agrees given history of non-adherence. 02/15/22: Stop seroquel. Start haldol 5mg BID. 02/14/22: Start seroquel 25mg qhs. Attempt fasting lipid panel and CMP tomorrow morning. 02/13/22: CM has communicated with [facility] who would like to seek emergency guardianship. 02/12/22: The patient was admitted to the [facility] ([facility] unit) on q15 min checks (behavioral with suicide precautions) for safety. The patient will participate in group, recreational, and milieu therapies and will be offered additional individual and family sessions as clinically appropriate. will offer prn Haldol. would benefit from ARANGO. Currently refusing meds but taking potassium repletion with much encouragement. Inventory Assets Strengths: hospitalizations far apart, already known to office of aging Needs: resume outpatient services, antipsychotic medication Suicide Risk Level Suicide Risk Level: Low (q15 min observation checks) (stable mood) Risk Factors Assessment : No Health Problems: No Mental Health Diagnoses: Yes Substance Use Disorders: No Previous Attempt: No Previous Psychiatric Hospitalization: Yes Protective Factors Assessment : No Supportive Family: Yes Interval History Identifying Information 61 yo female with a history of schizophrenia/schizoaffective dx, lives alone in [facility], was admitted on02/12/22 12:24 on a 302 involuntary commitment for inability to care for self due to paranoia and disorganization. She was initially admitted to the medical floor on 02/08/22 for treatment of hyp okalemia. On 303 commitment. Chief Complaint "I'm good". Review of Systems Sleep Information Total Hours of Sleep: 5.5 Sleep Comments: Meal Information Percent Meal Consumed - Breakfast: 100 Percent Meal Consumed - Lunch: 50 Percent Meal Consumed - Dinner: 100 Nutrition Comment: pt. had a large meal ordered and ate 80%; leftovers were dated, labeled and refrigerated. Subjective Subjective Patient was seen & assessed and interval progress reviewed with treatment team nursing and social work. Sun is future-focused, attending groups, eating well, and was able to participate in discussions with office of aging, her guardianship storage management consultant, and with me to complete her POLST wishes for care. She is excited about living at [facility] and pleased that she'll have assistance in managing her money. She continues to like the haldol and finds it is helpful. Denies any medication side effects. Physical Exam Psychiatric Orientation: alert and oriented x 3 Apperance: appropriately dressed and appropriately groomed Eye Contact: good eye contact Motor Behavior: no abnormal motor movements Speech: normal rate/rhythm/volume of speech Affect: euthymic affect (laughing appropriately at times) Mood: no depressed mood, no anxious mood and no irritable mood Thought Process: + concrete thought process Thought Content: reality based without delusions Suicidal Thoughts: denies suicidal thoughts Homicidal Thoughts: denies homicidal thoughts Hallucinations: no auditory hallucinations and no visual hallucinations Cognition: attention grossly intact and language grossly intact Estimated Intelligence: consistent with education level Insight: + impaired insight Judgement: + impaired judgement Vital Signs (Past 24 Hours) Last Vital Signs Temp 36.8 C 03/04/22 06:34 Pulse 96 H 03/04/22 06:34 Resp 20 03/04/22 06:34 BP 143/95 H 03/04/22 06:34 Pulse Ox 97 03/04/22 06:34 O2 Del Method 03/04/22 06:34 Results & Data ([facility]) Current Inpatient Medications Current Inpatient Medications: Current Inpatient Medications Acetaminophen (Acetaminophen 325 Mg Tab) 650 mg PO Q4H PRN PRN Reason: Headache or Minor Fever Stop: 03/14/22 11:06 Last Admin: 03/03/22 20:52 Dose: 650 mg Al Hydrox/Mg Hydrox/Simethicone (Aluminum/Magnesium Susp 30 Ml Udc) 30 ml PO Q4H PRN PRN Reason: GI Upset Stop: 03/14/22 11:06 Amlodipine Besylate (Amlodipine Besylate 5 Mg Tab) 10 mg PO QAM PAM Stop: 03/30/22 08:59 Last Admin: 03/04/22 09:33 Dose: 10 mg Benztropine Mesylate (Benztropine Mesylate 0.5 Mg Tab) 0.5 mg PO Q6 PRN PRN Reason: Muscle Spasm Stop: 03/14/22 14:13 Bismuth Subsalicylate (Bismuth Subsalicylate Liqd 236 Ml) 15 ml PO PRN PRN PRN Reason: Loose Stool Stop: 03/14/22 11:06 Clonidine HCl (Clonidine Hcl 0.1 Mg Tab) 0.1 mg PO BID PAM Stop: 03/19/22 20:59 Last Admin: 03/04/22 09:34 Dose: 0.1 mg Haloperidol (Haloperidol 5 Mg Tab) 10 mg PO HS PAM Stop: 03/19/22 21:59 Last Admin: 03/03/22 20:27 Dose: 10 mg Hydroxyzine HCl (Hydroxyzine Hcl 25 Mg Tab) 50 mg PO HSZ PRN PRN Reason: Insomnia Stop: 03/14/22 11:06 Hydroxyzine HCl (Hydroxyzine Hcl 25 Mg Tab) 25 mg PO Q4H PRN PRN Reason: Anxiety Stop: 03/14/22 11:06 Lorazepam (Lorazepam 0.5 Mg Tab) 0.5 mg PO Q6 PRN PRN Reason: Anxiety Stop: 03/14/22 14:13 Last Admin: 02/17/22 06:24 Dose: 0.5 mg Magnesium Hydroxide (Magnesium Hydroxide Susp 30 Ml Udc) 30 ml PO DAILY PRN PRN Reason: Constipation Stop: 03/14/22 11:06 Potassium Chloride (Potassium Chloride Crtab 20 Meq Tabcr) 20 meq PO BID PAM Stop: 03/22/22 08:59 Last Admin: 03/04/22 09:34 Dose: 20 meq Sodium Chloride (Sodium Chloride 0.65% Na Soln 45 Ml ([place])) 1 - 2 sprays NA PRN PRN PRN Reason: Nasal Dryness/Congestion Stop: 03/14/22 11:06 Trazodone HCl (Trazodone Hcl 50 Mg Tab) 50 mg PO HS PRN PRN Reason: Insomnia Stop: 03/21/22 21:59 Mental Health & Subst Abuse Tx Psychiatrist Name of Psychiatrist: Arsenio Hernandez Psychiatrist's Time of Appointment with Psychiatrist: 10:15 AM Psychiatric Appointment Comment: [address] [place] [address] Cloth Designer Name of Cloth Designer: Crockett IlKadi [facility] Phone Number for Cloth Designer: [phone] Post Discharge Appointments Primary Care Physician Name Of Family Doctor/PCP: [facility] Primary [facility] Time of Appointment with PCP: Please follow up as needed Provider Appointment Comment: [email or web address], [place], [place] Contact Information Discharge Address: [address] [place]
[2022-03-04] MEDS: haloperidoL 5 MG TAB PO SCH (20:07)
[2022-03-05] MEDS: ACETAMINOPHEN 325 MG TAB PO PRN (05:15)
[2022-03-05] MEDS: amLODIPine BESYLATE 5 MG TAB PO SCH (09:01)
[2022-03-05] MEDS: cloNIDine HCL 0.1 MG TAB PO SCH (09:01)
[2022-03-05] MEDS: POTASSIUM CHLORIDE CRTAB 20 MEQ TABCR PO SCH (09:01)
--- NOTE | 2022-03-05 09:28 | Discharge Summary ---
Date of Service March 05, 2022 History of Present Illness Patient was initial brought to ED on a 302 warrant: The police have been called by the [place] post office for backed up mail and several welfare checks. Tonight upon entering at the request of aging due to a foul smell, the house was entirely unkempt and filthy, Sun had lost a substantial amount of weight, and did not recognize me or her [id number]. There is only a bit of food, and the lunchmeat in her refrigerator is from November. It is clear Sun cannot take care of herself, has not been eating, has not washed her hair since October 21, and there is trash. As per my initial consultation on 02/09/22 there is significant documentation that the patient is not attending to usual iADLs that require higher executive functioning like arranging for snow removal or paying bills. History is that she was last seen by Dr. Joyce's office this summer with 2 month supply of medication is consistent with Surescripts so likely off Haldol for 3 months. While still boarding in the ED she seemed confused as to her actual providers (listing names of older providers from [facility]), denies that she was ever hospital/3S. Chart review shows 2 prior inpatient stays on 302 in 2000 and then not again until 2014, both times for paranoia (cameras in workplace), ideas of reference. On the medical floor she repeatedly refused imaging and medical felt there was insufficient evolving neurologic symptoms to warrant MRI under sedation. She required to see packaging on potassium before she would accept it. Refused to sign papers due to paranoia though later said she was illiterate. She was on 1 on 1 and noted to be laughing inappropriately as if responding to internal stimuli Physical Exam Vital Signs (Past 24 Hours) Last Vital Signs Temp 36.9 C 03/05/22 06:45 Pulse 106 H 03/05/22 06:46 Resp 18 03/05/22 06:45 BP 164/88 H 03/05/22 06:46 Pulse Ox 98 03/04/22 18:00 O2 Del Method 03/04/22 18:00 See admission H&P and DOD summary. Principal Diagnosis Schizophrenia Psychiatric Data See daily stay summary. Sun was initially significantly disorganized, poor sleep, responding frequently to internal stimuli and with delusions and paranoia resulting in conversion to 303 commitment. She was started on haldol which was titrated over time with significant benefit and tolerated this well. She received haldol decanoate long acting injectable formulation of 100mg IM on 02/28/2022 and will be due for her next injection on or around 03/31/2022. She was continued on po overlap at time of discharge. Baseline labs of fasting glucose, fasting lipid profile, and weight were preformed and WNL with exception of elevated triglycerides and BMI. Recommend repeat weight in one month. Recommend repeat fasting glucose and fasting lipid profile every 12 weeks and then annually. If symptoms arise recommend checking BP, EKG, prolactin level as clinically indicated or relevant. During her admission she had varying degrees of high blood pressure consistent with her historical diagnosis of HTN. She was restarted on clonidine 0.1mg BID which she had taken in the past for HTN. Amlodipine was titrated for additional blood pressure management. She was mildly tachycardia at times but never symptomatic. EKGs were done on 02/15/2022 and 03/03/2022 with normal sinus rhythm with PVCs and QTc < 500ms. She was continued on potassium supplementation during her psychiatric admission but the dose was tapered over time as her nutritional intake improved and stabilized. Potassium levels remained stable at 3.9 mmol/L on 02/20/2022 and at 3.7 mmol/L on 03/02/2022 on supplementation of Potassium Chloride 20meq BID. Even after clinical stabilization of her schizophrenia symptoms she continued to present with periods of confusion consistent with cognitive impairment/deficits. She scored a 13/30 on [place] Cognitive Assessment testing on 03/03/2022 with visuospatial difficulties on trails, incorrect placement of clock hands, inability to recall words/digits with limited abstraction. This score suggests moderate cognitive difficulties. A guardianship hearing occurred on 03/04/2022 at the request of Office of Aging and she was placed under emergency guardianship with the Department of Human Services and appointed a [facility] manager of case management. She was converted to 304 outpatient commitment on day of discharge to encourage ongoing medication adherence and attendance at her outpatient psychiatric appointments. A safety plan was completed prior to discharge. Office of Aging was actively involved throughout her admission. On the day of discharge she stated her mood was "pretty good" and remained future-oriented including moving into [facility], going shopping with her [facility] manager of case management and engaging in aftercare appointments for psychiatry. Day of Discharge Assessment Today the patient voices readiness for discharge. They note improvement in mood. They deny thoughts of harm to self or others. Thoughts are organized and they are clinically improved from admission. There is no evidence of psychosis. They improved in the hospital with support and medication adjustments. They agree to take medications as prescribed and keep follow-up appointments. At the time of the discharge they are deemed to be stable and appropriate for outpatient level of care. They are not deemed to be at imminent risk of harm to self or others. They are aware of emergency and crisis services. Knows to call 911 or go to nearest emergency care center if in a crisis which cannot be handled as an outpatient. Transition of Care Transition Of Care Record: was reviewed with the patient Advance Directives Advance Directives Information Provided: Yes Advance Directives: No Mental Health Advance Directive: No Advance Directives on File: No Living Will: No Power of Desk Clerks Supervisor: No Advance Directives Reason:: Declines as Mental Health Visit. Suicide Risk Level Suicide Risk Level Comments: Acute risk is low given stable mood, denial of SI, lack of access to lethal means, improvement in psychosis. Chronic risk is low given few non-modifiable risk factors: prior psychiatric hospitalizations, poor social support, schizophrenia but also with protective factors including outpatient care in place, capacity to establish therapeutic alliance and willingness to engage with treatment. Counseled on ways to reduce acute and chronic risk including engaging with outpatient providers, using safety plan if needed, utilizing supports, taking medication, and using coping skills. Modifiable risk factors of psychosis were addressed during hospitalization through safety planning, and medication adjustments. Risk Factors Assessment Male: No : No Do You Have Access To A Gun?: No Health Problems: No Mental Health Diagnoses: Yes Substance Use Disorders: No Previous Attempt: No Family History of Suicide: No Previous Psychiatric Hospitalization: Yes Hopelessness: No Protective Factors Assessment : No Discharge Data Lab Results 02/15/22 02/20/22 03/02/22 06:47 07:40 08:35 Sodium 141 141 141 Potassium 3.6 3.9 3.7 Chloride 107 108 H 106 Carbon Dioxide 27 26 28 Anion Gap 7 7 7 BUN 25 H 21 27 H Creatinine 1.00 0.85 0.78 Est Cr Clr Drug Dosing Not Reportable Not Reportable Not Reportable Est GFR ( Amer) 69.4 84.5 93.8 Est GFR (Non-Af Amer) 59.9 72.9 80.9 BUN/Creatinine Ratio 25.0 H 24.7 H 34.6 H Glucose 93 94 81 Calcium 7.9 L 8.3 L 9.0 Total Bilirubin 0.4 AST 22 ALT 25 Alkaline Phosphatase 111 H Total Protein 6.2 Albumin 3.4 Globulin 2.8 Albumin/Globulin Ratio 1.2 Triglycerides 220 H Cholesterol 168 LDL Cholesterol, Calc 77 VLDL Cholesterol, Calc 44 H HDL Cholesterol 47 Cholesterol/HDL Ratio 3.6 Hospital Course (1) Schizophrenia: (2) HTN (hypertension): Plan 03/04/22: Continue current medications and tx plan. 03/03/22: EKG. Continue current medications and tx plan. 03/02/22: Increase vital sign checks. 03/01/22: Continue current medications and tx plan. Will recheck K+ tomorrow. 02/28/22: Hadol decanoate 100mg IM. Decrease haldol po to 10mg hs. 02/27/2022: Haldol decanoate 100mg IM tomorrow. Increased amlodipine to 10mg qd. 02/26/2022: continue current medications and tx plan awaiting guardianship hearing 02/23/2022: completed emergency guardianship request/expert form for [facility]. 02/22/2022: emergency guardianship hearing as per O. 02/21/2022: Continue with current medications and tx plan. 02/20/22: Continue with current medications and tx plan. 02/19/22: Continue with current medications and tx plan. Add trazodone 50mg qhs prn for insomnia. Check BMP tomorrow. 02/18/22: Continue with current medications and tx plan. Amlodipine added for ongoing HTN. 02/17/22: Increase haldol to 5mg qAM & 10mg qhs (previous outpt dose). Start clonidine 0.1mg BID for HTN (she reports this was used in past for HTN). 02/16/22: Continue with haldol 5mg BID. Goal for haldol decanoate if she agrees given history of non-adherence. 02/15/22: Stop seroquel. Start haldol 5mg BID. 02/14/22: Start seroquel 25mg qhs. Attempt fasting lipid panel and CMP tomorrow morning. 02/13/22: CM has communicated with OOA who would like to seek emergency guardianship. 02/12/22: The patient was admitted to the [facility] on q15 min checks (behavioral with suicide precautions) for safety. The patient will participate in group, recreational, and milieu therapies and will be offered additional individual and family sessions as clinically appropriate. will offer prn Haldol. would benefit from ARANGO. Currently refusing meds but taking potassium repletion with much encouragement. Mental Health & Subst Abuse Tx Psychiatrist Name of Psychiatrist: Arsenio Hernandez Psychiatrist's Time of Appointment with Psychiatrist: 8:30 AM Psychiatric Appointment Comment: [address] [place] [address] Psychiatrist Release of Information: Obtained, Reviewed and Signed Folder And Notcher Name of Folder And Notcher: Benedicto Deleon [facility] Phone Number for Folder And Notcher: [phone] Folder And Notcher Release of Information: Obtained, Reviewed and Signed Post Discharge Appointments Primary Care Physician Name Of Family Doctor/PCP: [facility] Primary Care Time of Appointment with PCP: Please follow up as needed Provider Appointment Comment: [address], [place], [place] Primary Care Release of Information: Obtained, Reviewed and Signed Contact Information Discharge Discharge Address: [facility] Discharge Plan Discharge Items Patient Disposition: Personal Halfway Reason For Visit: SCHIZOPHRENIA Discharge Diagnosis: Schizophrenia Activity: Resume your previous activity Non-emergency contact: Primary Care Provider, Psychiatrist and Handbook Writer Call non-emergency contact if: you have any medication questions and your symptoms worsen Follow-up/Referrals: Femi Cerna MD [Primary Care Provider] - Diet: Regular Addtl Attending Provider Instructions: SPECIAL CARE INSTRUCTIONS: 1. Follow through with your scheduled aftercare appointments. If unable to keep an appointment, please call to reschedule. 2. Take your medication only as prescribed. Medication should not be changed or stopped without the approval of your doctor. In the event of worsening symptoms or concerns about side effects, contact your doctor immediately. 3. Utilize new healthy coping skills, anger management skills, and stress management skills learned during your hospitalization. Journal feelings and process them with a support person. Identify stressors or situations that may result in relapse, deterioration or inappropriate behaviors and develop a plan to deal with those issues. 4. If your coping skills are ineffective and you are in crisis, contact your outpatient providers for direction. If unable to reach your providers, please call the [facility] CRISIS LINE AT , go to the [facility] walk-in center at [address], [place], or go to the closest Emergency Room. 5. Avoid alcohol and un-prescribed drugs. 6. You have been provided with the Mental Health Advance Directives Pamphlet for your review. 7. Your condition is stable for discharge to outpatient level of care, but recovery is an ongoing process. Ifthoughts to harm yourself or others return, follow the safety plan developed during your stay. Planning for a safe return home includes securing weapons. Our treatment team recommends weaponsbe removed from the home until your outpatient provider reassesses your progress. In rare cases where the items themselvescannot be removed, guns and ammunitionshould be secured separatelyand keys stored by a reliable personoutside of the home. If you were admitted on an involuntary commitment, the police or other legal authorities may be involved in this process. AFTERCARE APPOINTMENTS: * Please call your insurance company prior to your scheduled appointment to confirm your aftercare providers are covered. Take your insurance information to your appointments. WHO TO CALL AND WHEN: Medical Emergencies: For questions or emergencies related to your hospital stay, please contact the Inpatient Behavioral Health Unit at [phone]. A director marketing is on-call 13/09 for the Behavioral Health Unit for emergencies At any time you feel your situation is an emergency, you may also call 911 immediately. Pending Studies at Discharge: No Stand-Alone Forms: [facility] Skilled Items Patient informed of condition?: Yes DNR: No Discharge Level of Care: Other Communicable Disease: No Discharge Prognosis: Stable Lines: None Urinary Catheter: No Medications and DC Order Prescriptions: New clonidine HCl 0.1 mg Tablet 0.1 mg PO BID Qty: 1 0RF benztropine 0.5 mg Tablet 0.5 mg PO DAILY PRN (Reason: muscle stiffness) Qty: 1 0RF potassium chloride 20 mEq Tablet,Er Particles/Crystals 20 meq PO BID Qty: 1 0RF haloperidol 10 mg tablet 10 mg PO HS Qty: 1 0RF amlodipine 10 mg tablet 10 mg PO DAILY Qty: 1 0RF haloperidol decanoate [Haldol Decanoate] 100 mg/mL solution 100 mg IM MONTHLY Qty: 1 0RF Rx Instructions: Next injection due 03/31/2022 Discharge Orders: Discharge Order (Routine); Ordered 03/05/22 Ordered By: Radha Hair Admission Data Admit Date/Time: 02/12/22 12:24 Attending Provider: Radha Hair Admit Provider: Kirti Bunch Primary Care Provider: Femi Cerna Other Interventions: Discharge Summary Assessment (RN) Last Done: 03/05/22 10:01 PSY Interdisciplinary Discharge Planning Last Done: 03/05/22 10:04 Coding Level of Care Code 53211 D/C day mgmt > 30 min Diagnoses Schizophrenia F20.9 HTN (hypertension) I10 Time Spent (min) 50
== END 2022-03-05 11:25 | disposition home or self-care (01) | DRG 885 ==
LOC: 3S 12:24 → SUATTDRO 12:24 → 3S 02-15 08:17